=== PATIENT | female | born 1970 | race Caucasian/White ===

== ENCOUNTER 2023-04-10 08:57 | Outpatient (OUT) | payer OTHER, SELFPAY ==
[2023-04-10 09:34] LABS: Basophils Absolute Auto 0.1 10^3/uL (0.0-0.1); Basophils Percent Auto 0.7 % (0.2-2.0); Eosinophils Absolute Auto 0.1 10^3/uL (0.0-0.7); Eosinophils Percent Auto 1.4 % (0.9-7.0); Hematocrit 41.8 % (36.0-48.0); Hemoglobin 13.3 g/dL (12.0-16.0); Immature Granulocytes Abs Auto 0.03 10^3/uL (0.00-0.03); Immature Granulocytes Pct Auto 0.4 % (0.0-0.5); Lymphocytes Absolute Auto 2.3 10^3/uL (1.2-3.8); Lymphocytes Percent Auto 28.9 % (20.5-60.0); Mean Corpuscular HGB Conc 31.8 g/dL (29.9-35.2); Mean Corpuscular Hemoglobin 25.6 pg (26.7-34.0); Mean Corpuscular Volume 80.4 fL (81.0-99.0); Mean Platelet Volume 9.1 fL (9.5-13.5); Monocytes Absolute Auto 0.5 10^3/uL (0.3-0.8); Monocytes Percent Auto 5.8 % (1.7-12.0); Neutrophils Absolute Auto 5.1 10^3/uL (1.4-6.5); Neutrophils Percent Auto 62.8 % (43.0-75.0); Platelet Count 352 10^3/uL (150-450); White Blood Count 8.1 10^3/uL (4.0-11.0)
[2023-04-10 10:02] LABS: Estimated Average Glucose 123 mg/dL; Glycohemoglobin A1C 5.9 % (4.5-6.2)
[2023-04-10 10:24] LABS: Alanine Aminotransferase 32 U/L (14-59); Albumin Globulin Ratio 0.9; Albumin Level 3.7 g/dL (3.4-5.0); Alkaline Phosphatase 109 U/L (46-116); Aspartate Amino Transferase 20 U/L (15-37); BUN Creatinine Ratio 16.7; Bilirubin Total 0.2 mg/dL (0.2-1.0); Calcium 8.8 mg/dL (8.5-10.1); Carbon Dioxide 27.1 mmol/L (21.0-32.0); Chloride 105 mmol/L (98-107); Chol HDL Ratio 5.7; Cholesterol 250 mg/dL (<=200); Estimated GFR (African America >60 (>=60); Estimated GFR (Non-African Ame >60 (>=60); Glucose 98 mg/dL (74-106); HDL Cholesterol 44 mg/dL (40-60); Potassium 4.1 mmol/L (3.5-5.1); Sodium 141 mmol/L (136-145); Thyroid Stimulating Hormone 1.642 uIU/mL (0.358-3.740); Total Protein 7.7 g/dL (6.4-8.2); Triglycerides 218 mg/dL (<=150); VLDL CHOLESTEROL 43.6 mg/dL
== END 2023-04-10 08:58 | disposition home or self-care (01) ==
LOC: LAB 09:08
PROVIDERS: PCP Family Medicine; Visit Provider Obstetrics & Gynecology
DX: R61 Generalized hyperhidrosis (principal); R23.2 Flushing; R63.5 Abnormal weight gain
CPT/HCPCS: 36415; 80053; 80061; 83036; 84443; 85025

== ENCOUNTER 2023-06-23 19:54 | Outpatient (REF) | payer OTHER, SELFPAY ==
[2023-06-30 18:07] LABS: Age Gdln ACOG Testing Note (.); HPV Aptima Negative (Negative); IGP, Aptima HPV, rfx 16/18,45 Note (.)
== END 2023-06-23 19:55 | disposition home or self-care (01) ==
LOC: LAB 19:54
PROVIDERS: PCP Family Medicine; Visit Provider Physician Assistant
DX: Z01.419 Encounter for gynecological examination (general) (routine) without abnormal findings (principal); R30.0 Dysuria
CPT/HCPCS: 87086; 87624; G0145

== ENCOUNTER 2023-09-08 08:51 | Outpatient (OUT) | payer OTHER, SELFPAY ==
--- NOTE | 2023-09-08 08:54 | XR_ITS ---
The [address] [address] Patient Name: AMIE VERMA MRN: [id number] date: 1970 Sex: F Assigned Patient Location: [facility] Current Patient Location: [facility] Accession/Order Number: [id number] Exam Date: 09/08/2023 09:25 Report Date: 09/08/2023 09:56 At the request of: VALDEMAR LEACH Procedure: XR DEXA axial skeleton DEXA Bone Density Study INDICATION: Osteoporosis screening. Evaluate bone mineral density. COMPARISON:No prior DEXA scan available for comparison at the time of this dictation. FINDINGS: The bone density study was assessed by dual-energy x-ray absorptiometry with the Fashinating scanner. The test results are expressed in T-Score, which is used for diagnosis for osteoporosis, and reflects the standard deviations from the mean peak bone mineral density in young adults. Additional information regarding the Z-Score reflects the standard deviations from the mean peak bone mineral density for age- and gender- matched subject. Lumbar Spine (L2-L4): BMD (gm/cm2): 1.135 T-Score: -0.5 Left Hip TOTAL: BMD (gm/cm2): 0.849 T-Score: -1.3 Left Hip NECK: BMD (gm/cm2): 0.785 T-Score: -1.8 Right hip TOTAL: BMD (gm/cm2):0.839 T- score:-1.3 Right hip NECK: BMD (gm/cm2):0.772 T- score: -1.9 XR/XR DEXA axial skeleton IMPRESSION: Bone mineral density WHO Classification: Osteopenia Fracture risk: Moderate REFERENCE: In children, postmenopausal women and males under age 50 not at increased risk for fractures, only Z-Scores, not T-Scores, are used to indicate fracture risk. A Z-Score above -2.0 is defined as within the expected range for age and Z-Score at or less than -2.0 is below the expected range for age. A Z-Score below the expected range for age in a patient with recent fractures and/or chronic corticosteroid treatment is consistent with a diagnosis of osteoporosis. In postmenopausal women and males over 50, comparison of the measured bone mineral density with the average value in young normal subjects (the T-Score) has been found to be useful in assessing fracture risk. Fracture risk approximately doubles for each 1.0 standard deviation (SD) that the individuals hip or spine bone mineral density is below the average value of young normal subjects. The World Health Organization (WHO) has provided the following definitions: 1. Normal: T-Score within one standard deviation of young adult mean value (T-Score at or above -1.0). 2. Osteopenia (low bone mass): T-Score more than one standard deviation below the young adult mean but less than 2.5 standard deviations below the young adult mean (T-Score between -1.0 and -2.5). 3. Osteoporosis: T-Score at or more than 2.5 standard deviations below the young adult mean (T-Score at or less than -2.5). 4. Severe Osteoporosis (established osteoporosis): T-Score more than 2.5 standard deviations below young adult and one or more fragility fracture (T-Score less than -2.5 plus fragility fractures). Electronically authenticated by: WINSTON CASIANO Date: 09/08/2023 09:56
--- NOTE | 2023-09-08 08:55 | MM_ITS ---
Patient Name: AMIE VERMA MR#: [id number] : 1970 Exam Date: 09/08/2023 Ordering Doctor: DR Joaquín Neff . RADIOLOGY REPORT PROCEDURE: MM TOMOSYNTHESIS SCREENING BI COMPARISON: MG MAMM SCREEN GEE W CAD, 05/31/2019. MG MAMM SCREEN 3D GEE CAD, 09/02/2022. INDICATIONS: Screening Calculator Name NCI Breast Cancer Risk Assessment Tool 5 Year Breast Cancer Risk 0.60% Lifetime Breast Cancer Risk 6.00% Personal Breast Cancer No Personal Ovarian Cancer No Treatments None Family Cancers None LOCATION: [facility] BREAST COMPOSITION: Scattered areas fibroglandular density. FINDINGS: DIAGNOSTIC CATEGORY 2--BENIGN FINDING. NO CHANGE FROM COMPARISON. Scattered benign-appearing nodules are present. Scattered benign-appearing calcifications are present. Scattered benign-appearing lymph nodes are present. RIGHT BREAST: No significant suspicious finding. LEFT BREAST: No significant suspicious finding. RECOMMENDATIONS: ROUTINE MAMMOGRAM AND CLINICAL EVALUATION IN 12 MONTHS. PLEASE NOTE: A NORMAL MAMMOGRAM DOES NOT EXCLUDE THE POSSIBILITY OF BREAST CANCER. A CLINICALLY SUSPICIOUS PALPABLE LUMP SHOULD BE BIOPSIED. Dictated by: Laurent Hansen MD on 09/09/2023 at 11:24 Approved by: Laurent Hansen MD on 09/09/2023 at 11:25
== END 2023-09-08 08:52 | disposition home or self-care (01) ==
LOC: MAMMO 08:51
PROVIDERS: PCP Family Medicine; Visit Provider Obstetrics & Gynecology
DX: Z12.31 Encounter for screening mammogram for malignant neoplasm of breast (principal); Z13.820 Encounter for screening for osteoporosis; Z78.0 Asymptomatic menopausal state
CPT/HCPCS: 77063; 77067; 77080

== ENCOUNTER 2023-09-10 18:21 | Emergency (ER) | payer OTHER, SELFPAY ==
[2023-09-10] VITALS (29 sets, daily range): BP systolic 132–173; BP diastolic 76–125; PULSE 71–86; RESP 11–21; TEMP 36.8; O2SAT 96–99; BMI 35.7
--- OUTSIDE RECORDS SUMMARY | 2023-09-10 18:28 | XMS_ITS | CCD ---
Author Name Unknown Address [address] [facility] [address] [place] [id number] Organization [facility] Care Team Providers Care Commercial Lender Name Role Phone JAROCHO, DR TALAVERA Admitting Unavailable HOY, DR TALAVERA Attending Unavailable HOY, DR TALAVERA Consulting Unavailable HOY, DR TALAVERA Primary Care Unavailable HOY, DR TALAVERA Primary Care Unavailable KARASIK, DR MORGAN Admitting Unavailable KARASIK, DR MORGAN Attending Unavailable KARASIK, DR MORGAN Consulting Unavailable ZIEBER, DR PASCUAL Wild Consulting Unavailable HOY, DR TALAVERA Primary Care Unavailable KARASIK, DR MORGAN Admitting Unavailable KARASIK, DR MORGAN Attending Unavailable KARASIK, DR MORGAN Consulting Unavailable HOY, DR TALAVERA Primary Care Unavailable HOY, DR TALAVERA Admitting Unavailable HOY, DR TALAVERA Attending Unavailable HOY, DR TALAVERA Consulting Unavailable Problems Active Problems Problem Classification Problem Date Documented Da te Episodic/Chronic Other screening for suspected conditions (not mental disorders or infectious disease) (8 sources) Encounter for screening mammogram for malignant neoplasm of breast; Translations: [Encounter for screening for malignant neoplasm of cervix] Onset: 06-04-2022 Episodic Unclassified (3 sources) CONTACT W/AND (SUSP) EXPOS COVID-19; Translations: [CONTACT W/AND (SUSP) EXPOS COVID-19] Onset: 11-29-2021 Viral infection (1 source) COVID-19; Translations: [COVID-19] Onset: 09-30-2021 Past or Other Problems Problem Classification Problem Date Documented Date Episodic/Chronic Immunizations and screening for infectious disease (1 source) Encounter for screening for human papillomavirus (HPV); Translations: [ENC SCREENING HUMAN PAPILLOMAVIRUS] Onset: 06-08-2022 Episodic Other upper respiratory infections (1 source) Acute recurrent frontal sinusitis; Translations: [ACUTE RECURRENT FRONTAL SINUSITIS] Onset: 11-29-2021 Episodic Unclassified (1 source) CONTACT W/AND (SUSP) EXPOS COVID-19; Translations: [CONTACT W/AND (SUSP) EXPOS COVID-19] Onset: 11-27-2021 Results Test Name Value Interpretation Reference Range Facil ity MG MAMM SCREEN 3D GEE CADon 09-02-2022 MG MAMM SCREEN 3D GEE CAD Patient: AMIE VERMA Exam Date: 09/02/2022 : 1970 Gender:F Ordering : DR CATHY PAL . Admission #: [id number] Family : Order #: [id number] CLICK HERE TO VIEW EXAM RADIOLOGY REPORT PROCEDURE: MAMMOGRAM SCREENING 3D BILATERAL CAD COMPARISON: MG MAMM SCREEN GEE W CAD, 08/25/2017. MG MAMM GEE SCRN W CAD DIG, 01/30/2015. MG MAMM SCREEN GEE W CAD, 05/31/2019. INDICATIONS: Screening mammography Calculator Name NCI Breast Cancer Risk Assessment Tool 5 Year Breast Cancer Risk 0.60% Lifetime Breast Cancer Risk 6.10% Personal Breast Cancer No Personal Ovarian Cancer No Treatments None Family Cancers None LOCATION: [facility] BREAST COMPOSITION: Scattered areas fibroglandular density. FINDINGS: DIAGNOSTIC CATEGORY 2--BENIGN FINDING: RIGHT BREAST: No significant suspicious finding. Scattered benign-appearing nodules are present. No significant change has occurred. LEFT BREAST: No significant suspicious finding. Scattered benign-appearing nodules are present. Scattered benign-appearing lymph nodes are present. RECOMMENDATIONS: ROUTINE MAMMOGRAM AND CLINICAL EVALUATION IN 12 MONTHS. PLEASE NOTE: A NORMAL MAMMOGRAM DOES NOT EXCLUDE THE POSSIBILITY OF BREAST CANCER. A CLINICALLY SUSPICIOUS PALPABLE LUMP SHOULD BE BIOPSIED. Dictated by: Pascual Hammond M.D. on 09/02/2022 at 15:04 Approved by: Pascual Hammond M.D. on 09/02/2022 at 15:07 Normal [facility] PAP ACOG PANEL 2: 30 to 65on 06-11-2022 . . Normal [facility] Comment on above: Result Comment: Performed at: WB Performed By: #### [id number] #### [facility] [address] [address] [address] Art Gold Age Gdln ACOG Testing 30-65 Normal [facility] Comment on above: Performed By: #### [id number] #### [facility] [address] [address] [address] Art Gold DIAGNOSIS: Comment Normal [facility] Comment on above: Result Comment: NEGATIVE FOR INTRAEPITHE LIAL LESION OR MALIGNANCY. Performed at: WB Performed By: #### [id number] #### [facility] [address] [address] [address] Art Gold HPV Aptima Negative Normal Negative [facility] Comment on above: Result Comment: This nucleic acid amplif ication test detects fourteen high-risk HPV types (16,18,31,33,35,39,45,51,52,56,58,59,66,68) without differentiation. Performed at: =G Performed By: #### [id number] #### [facility] [address] [place] [address] Dr. Art Gold Methodology: Comment Normal [facility] Comment on above: Result Comment: This liquid based ThinPr ep(R) pap test was screened with the use of an image guided system. Performed at: WB Performed By: #### [id number] #### [facility] [address] [place] [address] Dr. Art Gold Note: Comment Normal [facility] Comment on above: Result Comment: The Pap smear is a scree jenna test designed to aid in the detection of premalignant and malignant conditions of the uterine cervix. It is not a diagnostic procedure and should not be used as the sole means of detecting cervical cancer. Both false-positive and false-negative reports do occur. . Performed at: WB Performed By: #### [id number] #### [facility] [address] [place] [address] Dr. Art Gold Performed by: Comment Normal [facility] Comment on above: Result Comment: Bre Hansen Cytotechnol ogyvette (ASCP) Performed at: WB Performed By: #### [id number] #### [facility] [address] [place] [address] Dr. Art Gold Specimen adequacy: Comment Normal [facility] Comment on above: Result Comment: Satisfactory for evaluat ion. Endocervical and/or squamous metaplastic cells (endocervical component) are present. Performed at: WB Performed By: #### [id number] #### [facility] [address] [place] [address] Dr. rAt Gold Covid-19 PCR (CVDTB)on SARS-CoV-2 (COVID-19) RNA TRISTEN+probe Ql (Unsp spec) Not detected Normal NOT DETECTED [facility] Comment on above: Result Comment: This test is not yet elier roved or cleared by the [place] FDA. When there are no FDA-approved or cleared tests available, and other criteria are met, FDA can make tests available under an emergency access mechanism called an Emergency Use Authorization (EUA). The EUA for this test is supported by the [place] of Health and Human Service's (HHS's) declaration that circumstances exist to justify the emergency use of in vitro diagnostics for the detection and/or diagnosis of the virus that causes COVID-19. This EUA will remain in effect (meaning this test can be used) for the duration of the COVID-19 declaration justifying emergency of IVDs, unless it is terminated or revoked by FDA (after which the test may no longer be used). When diagnostic testing is negative, the possibility of a false negative should be considered in the context of a patient's recent exposures and the presence of clinical signs and symptoms consistent with SARS-CoV-2. Performed By: #### C VDTB #### [facility] [address] [place] [address] Dr. Art Gold Covid-19 PCR (CVDTB)on SARS-CoV-2 (COVID-19) RNA TRISTEN+probe Ql (Unsp spec) Detected Critically abnormal NOT DETECTED [facility] Comment on above: Result Comment: This test is not yet elier roved or cleared by the [place] FDA. When there are no FDA-approved or cleared tests available, and other criteria are met, FDA can make tests available under an emergency access mechanism called an Emergency Use Authorization (EUA). The EUA for this test is supported by the [place] of Health and Human Service's (HHS's) declaration that circumstances exist to justify the emergency use of in vitro diagnostics for the detection and/or diagnosis of the virus that causes COVID-19. This EUA will remain in effect (meaning this test can be used) for the duration of the COVID-19 declaration justifying emergency of IVDs, unless it is terminated or revoked by FDA (after which the test may no longer be used). Performed By: #### [facility] #### [facility] [address] [address] [address] Art Gold Encounters Encounter Date Encounter Type Care Provider Facility Start: 09-02-2022 End: 09-03-[address] ILAN AVENDAÑO Facility:[facility] Start: 06-04-2022 End: 06-04-[address] ILAN AVENDAÑO Facility:[facility] Start: 11-27-2021 End: 11-27-[address] ILAN AVENDAÑO Facility:[facility] Start: 09-26-2021 End: 09-26-[address] ILAN AVENDAÑO Facility:[facility] Payers Date Payer Category Payer Unknown [id number] [id number] [id number] 1970 Unknown [id number] [id number] 1970 Unknown [id number] [id number] 1970 Unknown [id number] [id number] [id number] 1957 Unknown [id number] Summary Purpose Family History No Family History Records Found Advance Directives No Advanced Directives Records Found Additional Source Comments INFORMATION SOURCE (unrecogn ized section and content) DATE CREATED AUTHOR 09/13/2022 [facility] FOR RECORDS PERTAINING TO PATIENTS WHO ARE OR HAVE BEEN ENROLLED IN A CHEMICAL DEPENDENCY/SUBSTANCEABUSE PROGRAM, SOME INFORMATION MAY BE OMITTED. This clinical summary was aggregated from multiple sources. Caution should be exercised in using it in the provision of clinical care. This summary normalizes information from multiple sources, and as a consequence, information in this document may materially change the coding, format and clinical context of patient data. In addition, data may be omitted in some cases. CLINICAL DECISIONS SHOULD BE BASED ON THE PRIMARY CLINICAL RECORDS. [email or web address] [facility]. provides no warranty or guarantee of the accuracy or completeness of information in this document.
--- NOTE | 2023-09-10 18:55 | XR_ITS ---
[address] [address] Patient Name: AMIE VERMA MRN: [id number] date: 1970 Sex: F Assigned Patient Location: ER Current Patient Location: ED.MAIN Accession/Order Number: [id number] Exam Date: 09/10/2023 19:18 Report Date: 09/10/2023 20:03 At the request of: FATOU MEEK Procedure: XR chest 1V EXAM: XR chest 1V HISTORY: CP COMPARISON: Chest x-ray 06/25/2018, outside study TECHNIQUE: Single AP radiograph of the chest FINDINGS: No pneumothorax, pleural effusion or consolidation. Normal heart size. No acute osseous abnormality. XR/XR chest 1V IMPRESSION: No acute cardiopulmonary process. Electronically authenticated by: THU AYALA Date: 09/10/2023 20:03
--- NOTE | 2023-09-10 18:55 | ECG_ITS ---
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
[2023-09-10 19:00] LABS: Basophils Absolute Auto 0.1 10^3/uL (0.0-0.1); Basophils Percent Auto 0.4 % (0.2-2.0); Eosinophils Absolute Auto 0.2 10^3/uL (0.0-0.7); Eosinophils Percent Auto 1.4 % (0.9-7.0); Hematocrit 40.5 % (36.0-48.0); Hemoglobin 12.8 g/dL (12.0-16.0); Immature Granulocytes Abs Auto 0.03 10^3/uL (0.00-0.03); Immature Granulocytes Pct Auto 0.3 % (0.0-0.5); Lymphocytes Absolute Auto 3.1 10^3/uL (1.2-3.8); Lymphocytes Percent Auto 26.3 % (20.5-60.0); Mean Corpuscular HGB Conc 31.6 g/dL (29.9-35.2); Mean Corpuscular Volume 82.2 fL (81.0-99.0); Mean Platelet Volume 9.8 fL (9.5-13.5); Monocytes Absolute Auto 0.6 10^3/uL (0.3-0.8); Monocytes Percent Auto 5.5 % (1.7-12.0); Neutrophils Absolute Auto 7.7 10^3/uL (1.4-6.5); Neutrophils Percent Auto 66.1 % (43.0-75.0); Platelet Count 344 10^3/uL (150-450); Red Blood Count 4.93 10^6/uL (4.20-5.40); Red Cell Distribution Width 14.9 % (11.0-15.0); White Blood Count 11.7 10^3/uL (4.0-11.0)
--- NOTE | 2023-09-10 19:05 | ED.CHESTPAI1 ---
Documented by User: Roxane Willams 09/10/23 21:52 HPI - Chest Pain General Chief Complaint: Chest Pain Stated Complaint: CP, LEFT ARM PAIN, HEADACHE Time Seen by Provider: 09/10/23 18:40 Source: patient Mode of arrival: walk-in Limitations: no limitations History of Present Illness HPI narrative: 52 year old female presents to the ED for chest, head, and left arm pain. Onset was 0900 this morning. States she was getting ready for her day at the time. The pain has been constant. States it is a pressure, tightness. She has SOB when walking up stairs. Denies fever, chills, injury, dizziness, weakness. Denies abd pain, N/V/D. Denies cardiac history. Related Data Home Medications Medication Instructions Recorded Confirmed dexlansoprazole 60 mg 60 mg PO DAILY 09/10/23 09/10/23 capsule,biphase delayed release (Dexilant) metformin 500 mg tablet,extended 500 mg PO DAILY 09/10/23 09/10/23 release 24 hr Allergies Allergy/AdvReac Type Severity Reaction Status Date / Time No Known Drug Allergies Allergy Verified 09/10/23 18:32 Review of Systems ROS Constitutional Denies: fever or chills Ears, nose, mouth, and throat Denies: throat pain or neck pain Cardiovascular Reports: chest pain and shortness of breath with exertion; Denies: palpitations, swelling of feet/ankles or lightheadedness Respiratory Denies: cough or wheezing Gastrointestinal Denies: abdominal pain, nausea, vomiting or diarrhea Musculoskeletal Denies: back pain or neck pain Integumentary/Breast Denies: rash Neurological Denies: headache, weakness in extremities or dizziness Exam Constitutional Vital Signs, click to edit/add: Last Vital Signs Temp 98.2 F 09/10/23 18:33 Pulse 77 09/10/23 20:50 Resp 14 09/10/23 20:50 BP 154/88 H 09/10/23 20:45 Pulse Ox 97 09/10/23 20:50 O2 Del Method Room Air 09/10/23 18:33 Common normals: no apparent distress and oriented x3 General appearance: cooperative Orientation/consciousness: Yes awake HENMT Mouth: oral and palatal mucosa normal and lip normal Eye Common normals: conjunctivae normal and no scleral icterus Neck & C-Spine Common normals: supple and no JVD Chest Chest: symmetrical chest wall rise Respiratory Common normals: normal respiratory effort Effort & inspection: able to speak in complete sentences and symmetric chest movement Auscultation: clear to auscultation bilaterally Cardio Common normals: regular rate and regular rhythm Neuro Common normals: oriented x3 Sensorium/orientation: awake and alert Speech: speech normal Course Vital Signs Vital signs: Vital Signs Pulse Oximetry 98 09/10/23 18:27 Temperature 98.2 F 09/10/23 18:33 Pulse Rate 77 09/10/23 20:50 Respiratory Rate 14 09/10/23 20:50 Blood Pressure 154/88 H 09/10/23 20:45 Pulse Oximetry 97 09/10/23 20:50 Oxygen Delivery Method Room Air 09/10/23 18:33 MDM - Chest Pain MDM Narrative Medical decision making narrative: Chest x-ray showed no acute findings. Two troponin levels were drawn and were unremarkable. CBC and CMP were unremarkable. She was given 324 mg of asa here. She preferred to be discharged home. Her heart score was 2. She was encouraged to follow up with her pcp for a recheck, further evaluation and treatment. Return precautions were discussed. Differential Diagnosis Differential diagnosis: Likely stable angina, atypical chest pain, st elevation myocardial infarction, chest pain and other (Anxiety) Medical Records Data Attestation: I reviewed the patient's medical records. Lab Data Attestation: I reviewed the patient's lab results. Labs: Lab Results 09/10/23 09/10/23 Range/Units 18:45 21:16 WBC 11.7 H (4.0-11.0) 10^3/uL RBC 4.93 (4.20-5.40) 10^6/uL Hgb 12.8 (12.0-16.0) g/dL Hct 40.5 (36.0-48.0) % MCV 82.2 (81.0-99.0) fL MCH 26.0 L (26.7-34.0) pg MCHC 31.6 (29.9-35.2) g/dL RDW 14.9 (11.0-15.0) % Plt Count 344 (150-450) 10^3/uL MPV 9.8 (9.5-13.5) fL Neut % (Auto) 66.1 (43.0-75.0) % Lymph % (Auto) 26.3 (20.5-60.0) % [place] % (Auto) 5.5 (1.7-12.0) % Eos % (Auto) 1.4 (0.9-7.0) % Baso % (Auto) 0.4 (0.2-2.0) % Neut # (Auto) 7.7 H (1.4-6.5) 10^3/uL Lymph # (Auto) 3.1 (1.2-3.8) 10^3/uL [place] # (Auto) 0.6 (0.3-0.8) 10^3/uL Eos # (Auto) 0.2 (0.0-0.7) 10^3/uL Baso # (Auto) 0.1 (0.0-0.1) 10^3/uL Abs Immat Gran (auto) 0.03 (0.00-0.03) 10^3/uL Imm/Tot Granulo (auto) 0.3 (0.0-0.5) % Sodium 140 (136-145) mmol/L Potassium 4.4 (3.5-5.1) mmol/L Chloride 105 (98-107) mmol/L Carbon Dioxide 27.7 (21.0-32.0) mmol/L Anion Gap 11.7 BUN 18.0 (7.0-18.0) mg/dL Creatinine 0.89 (0.55-1.02) mg/dL Est GFR ( Amer) >60 (>=60) Est GFR (Non-Af Amer) >60 (>=60) BUN/Creatinine Ratio 20.2 Glucose 79 (74-106) mg/dL Calcium 8.9 (8.5-10.1) mg/dL Total Bilirubin 0.6 (0.2-1.0) mg/dL AST 25 (15-37) U/L ALT 26 (14-59) U/L Alkaline Phosphatase 113 (46-116) U/L Troponin I High Sens 4.7 4.6 (4.0-51.3) pg/mL Total Protein 7.6 (6.4-8.2) g/dL Albumin 3.5 (3.4-5.0) g/dL Globulin 4.1 g/dL Albumin/Globulin Ratio 0.9 Imaging Data Chest x-ray: Attestation: I have reviewed the pertinent imaging results. Radiologist's impression: Procedure: XR chest 1V EXAM: XR chest 1V HISTORY: CP COMPARISON: Chest x-ray 06/25/2018, outside study TECHNIQUE: Single AP radiograph of the chest FINDINGS: No pneumothorax, pleural effusion or consolidation. Normal heart size. No acute osseous abnormality. XR/XR chest 1V IMPRESSION: No acute cardiopulmonary process. Electronically authenticated by: THU AYALA Date: 09/10/2023 20:03 ECG Data Attestation: ?I have reviewed the pertinent ECG results. (EKG was reviewed by the attending physician. It showed sinus rhythm at a rate of 84. No acute ST segment changes. SC interval 154 ms. QTc 403 ms.) Interpretation: Measurements Intervals [place] Rate: 84 P: 53 SC: 154 QRS: 8 QRSD: 78 T: 43 QT: 362 QTc: 403 Interpretive Statements 1100 Sinus rhythm 3113 Cannot rule out anterior myocardial infarction, probably old 9150 abnormal ECG No previous ECG available for comparison Heart Score History: Slightly/Non-Suspicious ECG: Normal Age: >45-<65 years Risk Factors: 1 or 2 Risk Factors Troponin: <Normal Limit Total Heart Score Recommendations & Risks:: 2 Discharge Plan Discharge Chief Complaint: Chest Pain Clinical Impression: Chest pain, Pleurisy Patient Disposition: Home, Self-Care Time of Disposition Decision: 21:50 Condition: Good Mode of Transportation: Private Vehicle Prescriptions / Home Meds: No Action dexlansoprazole [Dexilant] 60 mg capsule,biphase delayed releas 60 mg PO DAILY metformin 500 mg tablet extended release 24 hr 500 mg PO DAILY Instructions: Chest Pain (ED), Pleurisy (ED) Additional Instructions: Return to the ER for new or worsening symptoms. Stand Alone Forms: Portal Instructions Referrals: Adán Fink MD [Primary Care Provider] - 1 week Documented by User: Yohan Mcgraw 09/10/23 22:03 HPI - Chest Pain General Chief Complaint: Chest Pain Stated Complaint: CP, LEFT ARM PAIN, HEADACHE Time Seen by Provider: 09/10/23 18:40 Related Data Home Medications Medication Instructions Recorded Confirmed dexlansoprazole 60 mg 60 mg PO DAILY 09/10/23 09/10/23 capsule,biphase delayed release (Dexilant) metformin 500 mg tablet,extended 500 mg PO DAILY 09/10/23 09/10/23 release 24 hr Allergies Allergy/AdvReac Type Severity Reaction Status Date / Time No Known Drug Allergies Allergy Verified 09/10/23 18:32 Exam Constitutional Vital Signs, click to edit/add: Last Vital Signs Temp 98.2 F 09/10/23 18:33 Pulse 77 09/10/23 20:50 Resp 14 09/10/23 20:50 BP 154/88 H 09/10/23 20:45 Pulse Ox 97 09/10/23 20:50 O2 Del Method Room Air 09/10/23 18:33 Course Vital Signs Vital signs: Vital Signs Pulse Oximetry 98 09/10/23 18:27 Temperature 98.2 F 09/10/23 18:33 Pulse Rate 77 09/10/23 20:50 Respiratory Rate 14 09/10/23 20:50 Blood Pressure 154/88 H 09/10/23 20:45 Pulse Oximetry 97 09/10/23 20:50 Oxygen Delivery Method Room Air 09/10/23 18:33 MDM - Chest Pain MDM Narrative Medical decision making narrative: Chest x-ray showed no acute findings. Two troponin levels were drawn and were unremarkable. CBC and CMP were unremarkable. She was given 324 mg of asa here. She preferred to be discharged home. Her heart score was 2. She was encouraged to follow up with her pcp for a recheck, further evaluation and treatment. Return precautions were discussed. Attending physician note - I saw and evaluated the patient and discussed her symptoms, test results including CXR. Patient's pain is pleuritic. Discussed HEART score and risk for the patient - she had a negative stress about 5 years ago. I recommended out-patient follow up with Dr Fink. ED return if she worsens. - Jesus Manuel, DO Lab Data Labs: Lab Results 09/10/23 09/10/23 Range/Units 18:45 21:16 WBC 11.7 H (4.0-11.0) 10^3/uL RBC 4.93 (4.20-5.40) 10^6/uL Hgb 12.8 (12.0-16.0) g/dL Hct 40.5 (36.0-48.0) % MCV 82.2 (81.0-99.0) fL MCH 26.0 L (26.7-34.0) pg MCHC 31.6 (29.9-35.2) g/dL RDW 14.9 (11.0-15.0) % Plt Count 344 (150-450) 10^3/uL MPV 9.8 (9.5-13.5) fL Neut % (Auto) 66.1 (43.0-75.0) % Lymph % (Auto) 26.3 (20.5-60.0) % [place] % (Auto) 5.5 (1.7-12.0) % Eos % (Auto) 1.4 (0.9-7.0) % Baso % (Auto) 0.4 (0.2-2.0) % Neut # (Auto) 7.7 H (1.4-6.5) 10^3/uL Lymph # (Auto) 3.1 (1.2-3.8) 10^3/uL [place] # (Auto) 0.6 (0.3-0.8) 10^3/uL Eos # (Auto) 0.2 (0.0-0.7) 10^3/uL Baso # (Auto) 0.1 (0.0-0.1) 10^3/uL Abs Immat Gran (auto) 0.03 (0.00-0.03) 10^3/uL Imm/Tot Granulo (auto) 0.3 (0.0-0.5) % Sodium 140 (136-145) mmol/L Potassium 4.4 (3.5-5.1) mmol/L Chloride 105 (98-107) mmol/L Carbon Dioxide 27.7 (21.0-32.0) mmol/L Anion Gap 11.7 BUN 18.0 (7.0-18.0) mg/dL Creatinine 0.89 (0.55-1.02) mg/dL Est GFR ( Amer) >60 (>=60) Est GFR (Non-Af Amer) >60 (>=60) BUN/Creatinine Ratio 20.2 Glucose 79 (74-106) mg/dL Calcium 8.9 (8.5-10.1) mg/dL Total Bilirubin 0.6 (0.2-1.0) mg/dL AST 25 (15-37) U/L ALT 26 (14-59) U/L Alkaline Phosphatase 113 (46-116) U/L Troponin I High Sens 4.7 4.6 (4.0-51.3) pg/mL Total Protein 7.6 (6.4-8.2) g/dL Albumin 3.5 (3.4-5.0) g/dL Globulin 4.1 g/dL Albumin/Globulin Ratio 0.9 Heart Score Total Heart Score Recommendations & Risks:: 2 Discharge Plan Discharge Chief Complaint: Chest Pain Clinical Impression: Chest pain, Pleurisy Patient Disposition: Home, Self-Care Time of Disposition Decision: 21:50 Condition: Good Mode of Transportation: Private Vehicle Prescriptions / Home Meds: No Action dexlansoprazole [Dexilant] 60 mg capsule,biphase delayed releas 60 mg PO DAILY metformin 500 mg tablet extended release 24 hr 500 mg PO DAILY Instructions: Chest Pain (ED), Pleurisy (ED) Additional Instructions: Return to the ER for new or worsening symptoms. Stand Alone Forms: Portal Instructions Referrals: Adán Fink MD [Primary Care Provider] - 1 week
[2023-09-10 19:10] LABS: Alanine Aminotransferase 26 U/L (14-59); Albumin Globulin Ratio 0.9; Albumin Level 3.5 g/dL (3.4-5.0); Alkaline Phosphatase 113 U/L (46-116); Anion Gap 11.7; Aspartate Amino Transferase 25 U/L (15-37); BUN Creatinine Ratio 20.2; Bilirubin Total 0.6 mg/dL (0.2-1.0); Calcium 8.9 mg/dL (8.5-10.1); Carbon Dioxide 27.7 mmol/L (21.0-32.0); Chloride 105 mmol/L (98-107); Estimated GFR (African America >60 (>=60); Estimated GFR (Non-African Ame >60 (>=60); Globulin 4.1 g/dL; Glucose 79 mg/dL (74-106); Potassium 4.4 mmol/L (3.5-5.1); Sodium 140 mmol/L (136-145); Total Protein 7.6 g/dL (6.4-8.2)
[2023-09-10 19:15] LABS: Troponin I High Sensitivity 4.7 pg/mL (4.0-51.3)
[2023-09-10] MEDS: ASPIRIN 81 MG TAB.CHEW 324 MG PO (19:17)
[2023-09-10 21:38] LABS: Troponin I High Sensitivity 4.6 pg/mL (4.0-51.3)
== END 2023-09-10 22:00 | disposition home or self-care (01) ==
PROVIDERS: Nurse Practitioner Family; Emergency Provider Emergency Medicine; PCP Family Medicine
DX: R07.9 Chest pain, unspecified (principal); R09.1 Pleurisy; Z79.84 Long term (current) use of oral hypoglycemic drugs
CPT/HCPCS: 36415; 71045; 80053; 84484; 85025; 93005; 99285

== ENCOUNTER 2023-10-22 11:41 | Outpatient (OUT) | payer OTHER, SELFPAY ==
--- OUTSIDE RECORDS SUMMARY | 2023-10-22 11:46 | XMS_ITS | CCD ---
Author Name Unknown Address [address] [facility] [address] [place] [id number] Organization [facility] Care Team Providers Care Wet Chemistry Analyst Name Role Phone JAROCHO, DR TALAVERA Admitting [...] : DR CATHY PAL . Admission #: [id number] Family : Order #: [id number] CLICK HERE TO VIEW EXAM RADIOLOGY REPORT [...] Treatments None Family Cancers None LOCATION: The [facility] BREAST COMPOSITION: Scattered areas fibroglandular density. [...] Hammond M.D. on 09/02/2022 at 15:07 Normal [facility] PAP ACOG PANEL 2: 30 to 65on 06-11-2022 . . Normal The [facility] Comment on above: Result Comment: Performed at: WB Performed By: #### [id number] #### [facility] [address] [address] [address] Art Gold Age Gdln ACOG Testing 30-65 Normal [facility] Comment on above: Performed By: #### [id number] #### [facility] [address] [address] [address] Art Gold DIAGNOSIS: Comment Normal [facility] Comment on above: Result Comment: NEGATIVE FOR INTRAEPITHE LIAL LESION OR MALIGNANCY. Performed at: WB Performed By: #### [id number] #### [facility] [address] [address] [address] Art Gold HPV Aptima Negative Normal Negative [facility] Comment on above: Result Comment: This nucleic acid amplif ication test detects fourteen high-risk HPV types (16,18,31,33,35,39,45,51,52,56,58,59,66,68) without differentiation. Performed at: =G Performed By: #### [id number] #### [facility] [address] [place] [address] Dr. Art Gold Methodology: Comment Normal [facility] Comment on above: Result Comment: This liquid based ThinPr ep(R) pap test was screened with the use of an image guided system. Performed at: WB Performed By: #### [id number] #### [facility] [address] [place] [address] Dr. Art Gold Note: Comment Normal [facility] Comment on above: Result Comment: The Pap smear is a scree jenna test designed to aid in the detection of premalignant and malignant conditions of the uterine cervix. It is not a diagnostic procedure and should not be used as the sole means of detecting cervical cancer. Both false-positive and false-negative reports do occur. . Performed at: WB Performed By: #### [id number] #### [facility] [address] [place] [address] Dr. Art Gold Performed by: Comment Normal [facility] Comment on above: Result Comment: Bre Hansen Cytotechnol ogyvette (ASCP) Performed at: WB Performed By: #### [id number] #### [facility] [address] [place] [address] Dr. Art Gold Specimen adequacy: Comment Normal [facility] Comment on above: Result Comment: Satisfactory for evaluat ion. Endocervical and/or squamous metaplastic cells (endocervical component) are present. Performed at: WB Performed By: #### [id number] #### [facility] [address] [place] [address] Dr. Art Gold Covid-19 PCR (CVDTB)on SARS-CoV-2 (COVID-19) RNA TRISTEN+probe Ql (Unsp spec) Not detected Normal NOT DETECTED [facility] Comment on above: Result Comment: This test is not yet elier roved or cleared by the [place] FDA. When there are no FDA-approved or cleared tests available, and other criteria are met, FDA can make tests available under an emergency access mechanism called an Emergency Use Authorization (EUA). The EUA for this test is supported by the [place] of Health and Human Service's (HHS's) declaration [...] SARS-CoV-2. Performed By: #### C VDTB #### [facility] [address] [place] [address] Dr. Art Gold Covid-19 PCR (CVDTB)on SARS-CoV-2 (COVID-19) RNA TRISTEN+probe Ql (Unsp spec) Detected Critically abnormal NOT DETECTED [facility] Comment on above: Result Comment: This test is not yet elier roved or cleared by the [place] FDA. When there are no FDA-approved or cleared tests available, and other criteria are met, FDA can make tests available under an emergency access mechanism called an Emergency Use Authorization (EUA). The EUA for this test is supported by the [place] of Health and Human Service's (HHS's) declaration [...] longer be used). Performed By: #### C [facility] #### [facility] [address] [address] [address] Art Gold Encounters Encounter Date Encounter Type Care Provider Facility Start: 09-02-2022 End: 09-03-[address] ILAN AVENDAÑO Facility:[facility] Start: 06-04-2022 End: 06-04-[address] ILAN AVENDAÑO Facility:[facility] Start: 11-27-2021 End: 11-27-[address] ILAN AVENDAÑO Facility:[facility] Start: 09-26-2021 End: 09-26-[address] ILAN AVENDAÑO Facility:[facility] Payers Date Payer Category Payer Unknown [id number] [id number] [id number] 1970 Unknown [id number] 2.16.84 [id number] 1970 Unknown [id number] 2.16.84 [id number] 1970 Unknown [id number] 2.16.84 [id number] 1959 Unknown [id number] Summary Purpose Family History No Family History Records Found Advance Directives No Advanced Directives Records Found Additional Source Comments INFORMATION SOURCE (unrecogn ized section and content) DATE CREATED AUTHOR 09/13/2022 The [facility] FOR RECORDS PERTAINING TO PATIENTS WHO ARE [...] BE BASED ON THE PRIMARY CLINICAL RECORDS. [employer] [facility]. provides no warranty or guarantee of the accuracy or completeness of information in this document.
--- NOTE | 2023-10-22 11:51 | XR_ITS ---
The [address] [address] Patient Name: AMIE VERMA MRN: [id number] date: 1970 Sex: F Assigned Patient Location: LAB Current Patient Location: LAB Accession/Order Number: [id number] Exam Date: 10/22/2023 11:52 Report Date: 10/22/2023 12:06 At the request of: ILAN AVENDAÑO Procedure: XR elbow LT min 3V PROCEDURE: XR elbow LT min 3V HISTORY: Elbow Pain M25.522 ; pain since falling on elbow 2 weeks ago COMPARISON: None. FINDINGS: BONES:No fracture, acute abnormality, or significant arthropathy. SOFT TISSUES:No visible soft tissue swelling. EFFUSION:None visible. OTHER: Negative. XR/XR elbow LT min 3V IMPRESSION: 1. No acute bone abnormality. Electronically authenticated by: WESTON TALAVERA Date: 10/22/2023 12:06
== END 2023-10-22 11:42 | disposition home or self-care (01) ==
PROVIDERS: PCP Family Medicine; Visit Provider Family Medicine
DX: M25.522 Pain in left elbow (principal)
CPT/HCPCS: 73080

== ENCOUNTER 2024-01-27 09:25 | Outpatient (OUT) | payer OTHER, SELFPAY ==
[2024-01-27 10:43] LABS: Basophils Percent Auto 0.5 % (0.2-2.0); Eosinophils Absolute Auto 0.2 10^3/uL (0.0-0.7); Eosinophils Percent Auto 1.9 % (0.9-7.0); Hematocrit 39.9 % (36.0-48.0); Hemoglobin 12.5 g/dL (12.0-16.0); Immature Granulocytes Abs Auto 0.02 10^3/uL (0.00-0.03); Immature Granulocytes Pct Auto 0.2 % (0.0-0.5); Lymphocytes Absolute Auto 2.3 10^3/uL (1.2-3.8); Lymphocytes Percent Auto 28.7 % (20.5-60.0); Mean Corpuscular HGB Conc 31.3 g/dL (29.9-35.2); Mean Corpuscular Hemoglobin 25.7 pg (26.7-34.0); Mean Corpuscular Volume 81.9 fL (81.0-99.0); Mean Platelet Volume 9.6 fL (9.5-13.5); Monocytes Absolute Auto 0.5 10^3/uL (0.3-0.8); Monocytes Percent Auto 6.3 % (1.7-12.0); Neutrophils Percent Auto 62.4 % (43.0-75.0); Platelet Count 360 10^3/uL (150-450); Red Blood Count 4.87 10^6/uL (4.20-5.40); Red Cell Distribution Width 14.4 % (11.0-15.0)
[2024-01-27 10:52] LABS: Alanine Aminotransferase 27 U/L (14-59); Albumin Globulin Ratio 0.9; Albumin Level 3.3 g/dL (3.4-5.0); Alkaline Phosphatase 106 U/L (46-116); Anion Gap 10.2; Aspartate Amino Transferase 19 U/L (15-37); BUN Creatinine Ratio 12.6; Bilirubin Total 0.3 mg/dL (0.2-1.0); Calcium 8.8 mg/dL (8.5-10.1); Carbon Dioxide 29.1 mmol/L (21.0-32.0); Chloride 107 mmol/L (98-107); Chol HDL Ratio 6.1; Cholesterol 269 mg/dL (<=200); Estimated GFR (African America >60 (>=60); Estimated GFR (Non-African Ame >60 (>=60); Free T3 2.61 pg/mL (2.18-3.98); Globulin 3.7 g/dL; Glucose 87 mg/dL (74-106); HDL Cholesterol 44 mg/dL (40-60); Potassium 4.3 mmol/L (3.5-5.1); Sodium 142 mmol/L (136-145); Thyroid Stimulating Hormone 1.273 uIU/mL (0.358-3.740); Triglycerides 222 mg/dL (<=150); VLDL CHOLESTEROL 44.4 mg/dL
[2024-01-27 11:00] LABS: Estimated Average Glucose 123 mg/dL; Glycohemoglobin A1C 5.9 % (4.5-6.2)
[2024-01-28 12:10] LABS: Insulin 23.2 uIU/mL (2.6-24.9)
== END 2024-01-27 09:26 | disposition home or self-care (01) ==
LOC: LAB 09:27
PROVIDERS: PCP Family Medicine; Visit Provider Family Medicine
DX: Z00.00 Encounter for general adult medical examination without abnormal findings (principal)
CPT/HCPCS: 36415; 80053; 80061; 83036; 83525; 84436; 84443; 84481; 85025

== ENCOUNTER 2024-11-02 07:58 | Outpatient (OUT) | payer OTHER, SELFPAY ==
--- OUTSIDE RECORDS SUMMARY | 2024-11-02 08:11 | XMS_ITS | CCD ---
Author Organization [facility] Care Team Providers Care Sand Operator Name Role Phone JAROCHO, DR TALAVERA Admitting Unavailable REGINAY, DR TALAVERA Attending Unavailable HOY, DR TALAVERA Consulting Unavailable HOY, DR TALAVERA Primary Care Unavailable HOY, DR TALAVERA Primary Care Unavailable KARASIK, DR MORGAN Admitting Unavailable KARASIK, DR MORGAN Attending Unavailable KARASIK, DR MORGAN Consulting Unavailable ZIEBER, DR PASCUAL Wild Consulting Unavailable HOY, DR TALAVERA Primary Care Unavailable KARASIK, DR MORGAN Admitting Unavailable KARASIK, DR MORGAN Attending Unavailable KARASIK, DR MORGAN Consulting Unavailable REGINAY, DR TALAVERA Primary Care Unavailable HOY, DR [...] : DR CATHY PAL . Admission #: [id number] Family : Order #: [id number] CLICK HERE TO VIEW EXAM RADIOLOGY REPORT [...] Treatments None Family Cancers None LOCATION: The [facility] BREAST COMPOSITION: Scattered areas fibroglandular density. FINDINGS: [...] Pascual Hammond M.D. on 09/02/2022 at 15:07 [facility] PAP ACOG PANEL 2: 30 to 65on 06-11-2022 . . Normal The [facility] Comment on above: Result Comment: Performed at: WB Performed By: #### [id number] #### [facility] [address] [address] [address] Art Gold Age Gdln ACOG Testing 30-65 Normal [facility] Comment on above: Performed By: #### [id number] #### [facility] [address] [address] [address] Art Gold DIAGNOSIS: Comment Normal [facility] Comment on above: Result Comment: NEGATIVE FOR INTRAEPITHE LIAL LESION OR MALIGNANCY. Performed at: WB Performed By: #### [id number] #### [facility] [address] [place] [address] Dr. Art Gold HPV Aptima Negative Normal Negative [facility] Comment on above: Result Comment: This nucleic acid amplif ication test detects fourteen high-risk HPV types (16,18,31,33,35,39,45,51,52,56,58,59,66,68) without differentiation. Performed at: =G Performed By: #### [id number] #### [facility] [address] [place] [address] Dr. Art Gold Methodology: Comment Normal [facility] Comment on above: Result Comment: This liquid based ThinPr ep(R) pap test was screened with the use of an image guided system. Performed at: WB Performed By: #### [id number] #### [facility] [address] [place] [address] Dr. Art Gold Note: Comment Normal [facility] Comment on above: Result Comment: The Pap smear is a scree jenna test designed to aid in the detection of premalignant and malignant conditions of the uterine cervix. It is not a diagnostic procedure and should not be used as the sole means of detecting cervical cancer. Both false-positive and false-negative reports do occur. . Performed at: WB Performed By: #### [id number] #### [facility] [address] [place] [address] Dr. Art Gold Performed by: Comment Normal [facility] Comment on above: Result Comment: Bre Hansen, Cytotechnol ogist (ASCP) Performed at: WB Performed By: #### [id number] #### [facility] [address] [place] [address] Dr. Art Gold Specimen adequacy: Comment Normal [facility] Comment on above: Result Comment: Satisfactory for evaluat ion. Endocervical and/or squamous metaplastic cells (endocervical component) are present. Performed at: WB Performed By: #### [id number] #### [facility] [address] [place] [address] [address] [address] Art Gold Covid-19 PCR (CVDTB)on SARS-CoV-2 (COVID-19) RNA TRISTEN+probe Ql (Unsp spec) Not detected Normal NOT DETECTED [facility] Comment on above: Result Comment: This test is not yet elier roved or cleared by the [place] FDA. When there are no FDA-approved or cleared tests available, and other criteria are met, FDA can make tests available under an emergency access mechanism called an Emergency Use Authorization (EUA). The EUA for this test is supported by the [place] of Health and Human Service's (HHS's) declaration [...] consistent with SARS-CoV-2. Performed By: #### C [facility] #### [facility] [address] [place] [address] Dr. Art Gold Covid-19 PCR (CVDTB)on SARS-CoV-2 (COVID-19) RNA TRISTEN+probe Ql (Unsp spec) Detected Critically abnormal NOT DETECTED The [facility] Comment on above: Result Comment: This test is not yet elier roved or cleared by the [place] FDA. When there are no FDA-approved or cleared tests available, and other criteria are met, FDA can make tests available under an emergency access mechanism called an Emergency Use Authorization (EUA). The EUA for this test is supported by the [place] [employer] of Health and Human Service's (HHS's) declaration [...] longer be used). Performed By: #### C [facility] #### [facility] [address] [place], [place] [address] Dr. Art Gold Encounters Encounter Date Encounter Type Care Provider Facility Start: 09-02-2022 End: 09-03-[address] ILAN AVENDAÑO Facility:[facility] Start: 06-04-2022 End: 06-04-[address] ILAN AVENDAÑO Facility:[facility] Start: 11-27-2021 End: 11-27-[address] ILAN AVENDAÑO Facility:[facility] Start: 09-26-2021 End: 09-26-[address] ILAN AVENDAÑO Facility:[facility] Payers Date Payer Category Payer Unknown [id number] 2.16.84 [id number] 1970 Unknown [id number] 2.16.84 [id number] 1970 Unknown [id number] 2.16.84 [id number] 1970 Unknown [id number] 2.16.84 [id number] 1959 Unknown [id number] Summary Purpose Family History No Family History Records Found Advance Directives No Advanced Directives Records Found Additional Source Comments INFORMATION SOURCE (unrecogn ized section and content) DATE CREATED AUTHOR 09/13/2022 [facility] FOR RECORDS PERTAINING TO PATIENTS WHO ARE [...] BE BASED ON THE PRIMARY CLINICAL RECORDS. [facility] [employer] [facility]. provides no warranty or guarantee of the accuracy or completeness of information in this document.
--- NOTE | 2024-11-02 08:31 | MM_ITS ---
Patient Name: AMIE VERMA MR#: [id number] : 1970 Exam Date: 11/02/2024 Ordering Doctor: DR Joaquín Neff . RADIOLOGY REPORT PROCEDURE: MM TOMOSYNTHESIS SCREENING BI COMPARISON: MM TOMOSYNTHESIS SCREENING BI, 09/08/2023. MG MAMM SCREEN 3D GEE CAD, 09/02/2022. MG MAMM SCREEN GEE W CAD, 05/31/2019. MG MAMM GEE SCRN W CAD DIG, 01/30/2015. INDICATIONS: Screening Calculator Name NCI Breast Cancer Risk Assessment Tool 5 Year Breast Cancer Risk 0.50% Lifetime Breast Cancer Risk 4.00% Personal Breast Cancer No Personal Ovarian Cancer No Treatments None Family Cancers None LOCATION: [facility] BREAST COMPOSITION: There are scattered areas of fibroglandular density. FINDINGS: DIAGNOSTIC CATEGORY 1--NEGATIVE. RIGHT BREAST: No significant suspicious finding. No significant change has occurred. LEFT BREAST: No significant suspicious finding. No significant change has occurred. RECOMMENDATIONS: ROUTINE MAMMOGRAM AND CLINICAL EVALUATION IN 12 MONTHS. PLEASE NOTE: A NORMAL MAMMOGRAM DOES NOT EXCLUDE THE POSSIBILITY OF BREAST CANCER. A CLINICALLY SUSPICIOUS PALPABLE LUMP SHOULD BE BIOPSIED. Dictated by: Pascual Hammond M.D. on 11/04/2024 at 10:50 Approved by: Pascual Hammond M.D. on 11/04/2024 at 10:53
== END 2024-11-02 07:59 | disposition home or self-care (01) ==
LOC: MAMMO 07:58
PROVIDERS: PCP Family Medicine; Visit Provider Obstetrics & Gynecology
DX: Z12.31 Encounter for screening mammogram for malignant neoplasm of breast (principal); Z01.419 Encounter for gynecological examination (general) (routine) without abnormal findings; L72.0 Epidermal cyst
CPT/HCPCS: 77063; 77067; 88175; 88304

== ENCOUNTER 2024-11-02 19:27 | Outpatient (REF) | payer OTHER, SELFPAY ==
--- OUTSIDE RECORDS SUMMARY | 2024-11-02 19:30 | XMS_ITS | CCD ---
Author Organization [facility] Care Team Providers Care Candy Wrapping Machine Operator Name Role Phone JAROCHO, DR TALAVERA [...] : DR CATHY PAL . Admission #: [id number] Family : Order #: [id number] CLICK HERE TO VIEW EXAM RADIOLOGY REPORT [...] Treatments None Family Cancers None LOCATION: [facility] BREAST COMPOSITION: Scattered areas fibroglandular density. [...] Pascual Hammond M.D. on 09/02/2022 at 15:07 [facility] PAP ACOG PANEL 2: 30 to 65on 06-11-2022 . . Normal [facility] Comment on above: Result Comment: Performed at: WB Performed By: #### [id number] #### [facility] [address] [address] [address] Art Gold Age Gdln ACOG Testing 30-65 Normal [facility] Comment on above: Performed By: #### [id number] #### [facility] [address] [address] [address] Art Gold DIAGNOSIS: Comment Normal [facility] Comment on above: Result Comment: NEGATIVE FOR INTRAEPITHE LIAL LESION OR MALIGNANCY. Performed at: WB Performed By: #### [id number] #### [facility] [address] [place] [address] Dr. Art Gold HPV Aptima Negative Normal Negative [facility] Comment on above: Result Comment: This nucleic acid amplif ication test detects fourteen high-risk HPV types (16,18,31,33,35,39,45,51,52,56,58,59,66,68) without differentiation. Performed at: =G Performed By: #### [id number] #### [facility] [address] [place] [address] Dr. Art Gold Methodology: Comment Normal [facility] Comment on above: Result Comment: This liquid based ThinPr ep(R) pap test was screened with the use of an image guided system. Performed at: WB Performed By: #### [id number] #### [facility] [address] [place] [address] Dr. Art Gold Note: Comment Normal [facility] Comment on above: Result Comment: The Pap smear is a scree jenna test designed to aid in the detection of premalignant and malignant conditions of the uterine cervix. It is not a diagnostic procedure and should not be used as the sole means of detecting cervical cancer. Both false-positive and false-negative reports do occur. . Performed at: WB Performed By: #### [id number] #### [facility] [address] [place] [address] Dr. Art Gold Performed by: Comment Normal [facility] Comment on above: Result Comment: Bre Hansen, Cytotechnol ogist (ASCP) Performed at: WB Performed By: #### [id number] #### [facility] [address] [place] [address] Dr. Art Gold Specimen adequacy: Comment Normal [facility] Comment on above: Result Comment: Satisfactory for evaluat ion. Endocervical and/or squamous metaplastic cells (endocervical component) are present. Performed at: WB Performed By: #### [id number] #### [facility] [address] [place] [address] [address] Art Gold Covid-19 PCR (CVDTB)on SARS-CoV-2 (COVID-19) RNA TRISTEN+probe Ql (Unsp spec) Not detected Normal NOT DETECTED [facility] Comment on above: Result Comment: This test is not yet elier roved or cleared by the [place] FDA. When there are no FDA-approved or cleared tests available, and other criteria are met, FDA can make tests available under an emergency access mechanism called an Emergency Use Authorization (EUA). The EUA for this test is supported by the Fixture Designer of Health and Human Service's (HHS's) declaration [...] consistent with SARS-CoV-2. Performed By: #### [facility] #### [facility] [address] [place] [address] Dr. Art Gold Covid-19 PCR (CVDTB)on SARS-CoV-2 (COVID-19) RNA TRISTEN+probe Ql (Unsp spec) Detected Critically abnormal NOT DETECTED [facility] Comment on above: Result Comment: This test is not yet elier roved or cleared by the [place] FDA. When there are no FDA-approved or cleared tests available, and other criteria are met, FDA can make tests available under an emergency access mechanism called an Emergency Use Authorization (EUA). The EUA for this test is supported by the Fixture Designer of Health and Human Service's (HHS's) declaration [...] longer be used). Performed By: #### C [facility] #### [facility] [address], [place] [address] Dr. Art Gold Encounters Encounter Date Encounter Type Care Provider Facility Start: 09-02-2022 End: 09-03-[address] ILAN AVENDAÑO Facility:[facility] Start: 06-04-2022 End: 06-04-[address] ILAN AVENDAÑO Facility:[facility] Start: 11-27-2021 End: 11-27-[address] ILAN AVENDAÑO Facility:[facility] Start: 09-26-2021 End: 09-26-[address] ILAN AVENDAÑO Facility:[facility] Payers Date Payer Category Payer Unknown [id number] 1970 Unknown [id number] 1970 Unknown [id number] 1970 Unknown [id number] 1957 Unknown [id number] Summary Purpose Family History No Family History Records Found Advance Directives No Advanced Directives Records Found Additional Source Comments INFORMATION SOURCE (unrecogn ized section and content) DATE CREATED AUTHOR 09/13/2022 [facility] FOR RECORDS PERTAINING TO PATIENTS [...] BE BASED ON THE PRIMARY CLINICAL RECORDS. [facility]. provides no warranty or guarantee of the accuracy or completeness of information in this document.
[2024-11-08 13:08] LABS: Age Gdln ACOG Testing Note (.); HPV Aptima Negative (Negative); IGP, Aptima HPV, rfx 16/18,45 Note (.)
== END 2024-11-02 19:28 | disposition home or self-care (01) ==
LOC: LAB 19:27
PROVIDERS: PCP Family Medicine; Visit Provider Physician Assistant
DX: Z01.419 Encounter for gynecological examination (general) (routine) without abnormal findings (principal); L72.0 Epidermal cyst
CPT/HCPCS: 88175; 88304

== ENCOUNTER 2025-04-07 14:00 | Outpatient (OUT) | payer OTHER, SELFPAY ==
--- OUTSIDE RECORDS SUMMARY | 2025-02-07 07:15 | XMS_ITS ---
Author Organization The [facility] [place] Address [address] [place] [address] Care Team Providers Care Speedboat Driver Name Role Phone Sukhdeep Fink Primary Care Provider Allergies No Known Allergies REASON FOR VISIT Right ear pain non resolving Medications Medication SIG (Take, Route, Frequency, Duration) Notes Start Date End Date Status ZyrTEC Allergy 10 MG 1 tablet Orally Onc e a day for 30 days PRN 02/10/2023 Active Lysine Active Calcium Magnesium Zinc 333-133-5 MG 1 tablet with meals Orally Three times a day 10/27/2024 Active Dexilant 60 MG 1 capsule Orally Onc e a day for 30 days 04/03/2023 Active predniSONE 20 MG 3 tablets Orally Onc e a day for 5 days 02/07/2025 Active Aspirin Adult Low Dose 81 MG 1 tablet Orally Once a day A ctive Social History Tobacco Use: Social History Observation Description Date Details (start date - stop date) Former Smoker 09/21/1991 - 09/21/2010 Tobacco Use/Smoking Question Answer Notes Patient is a former smoker When did you start smoking? 09/21/1991 When did you stop smoking? 09/21/2010 How long has it been since y ou last smoked? > 10 years Additional Findings: Tobacco Non-User Ex-heavy c igarette smoker (20-30/day) Vital Signs Weight 184.4 lbs 02/07/2025 Height 63.75 in 02/07/2025 Blood pressure systolic 164 mm Hg 02/08/20 25 Blood pressure diastolic 84 mm Hg 025 BMI 31.9 kg/m2 02/07/2025 Encounters Encounter Location Date Provider Diagnosis [facility] [address] [place] [address] 02/07/2025 Sukhdeep Fink Acute otitis media, unspecified otitis media type H66.90 and Otalgia, unspecified laterality H92.09 Assessments Encounter Date Diagnosis (ICD Code) Assessment Notes Treatment Notes Treatment Clinical Notes Section Notes 02/07/2025 Acute otitis media, unspecified otitis media type (ICD-10 - H66.90) You have been prescribed antibiotics for otitis media. Antibiotics may bother your stomach, so try taking them with a light meal (unless instructed otherwise by your pharmacist). It is important to take them until they are finished. You can use lybk-hoi-zhbrljj acetaminophen or ibuprofen if needed for pain. You have been prescribed antibiotics. You should be extra vigilant about hand washing or using hand screedman gel. You should follow up with your Primary Care Physician or return to clinic if not improving in the next 3-5 days. 02/07/2025 Otalgia, unspecified laterality (ICD-10 - H92.09) Plan Of Treatment Medication Medication Name Sig Start Date Stop Date Notes predniSONE 20 MG 3 tablets Orally Once a day for 5 days Treatment Notes Assessment Notes Acute otitis media, unspecif ied otitis media type You have been prescribed antibiotics for otitis media. Antibiotics may bother your stomach, so try taking them with a light meal (unless instructed otherwise by your pharmacist). It is important to take them until they are finished. You can use dqnu-igg-hholnnr acetaminophen or ibuprofen if needed for pain. You have been prescribed antibiotics. You should be extra vigilant about hand washing or using hand screedman gel. You should follow up with your Primary Care Physician or return to clinic if not improving in the next 3-5 days. Next Appt Details Follow Up: 3-5 days, if no i mprovement, Reason: Progress Notes * Natali VERMA MDOB:1970 (54 yo F)Acc No.[id number]:02/07/2025 Progress Note Patient: Natali STEWART Provider: Lisandra Fink ([facility])MD :1970 A ge:54 Y S ex:Female Date:02/07/2025 Address:[place], [place] Check In:11:18 AM ESTCheck O ut:11:58 AM EST Subjective: * Chief Complaints: * R ight ear pain non resolving * HPI: G eneral: More jjust hearing - hard in R ear - left feel sperfect. O titis Media: The patient complains of s ymptoms of an ear infection.� The symptoms have been present for 1 -2 days. The symptoms are m oderate. Symptomatic treatment has included O TC medication. Associated symptoms include p ain in one or both ears, fever. * ROS: E NT: Comments S ee HPI for details. C ardiovascular: Edema d enies. P alpitations d enies. � R espiratory: Chest pain d enies. C ough d enies. � G astrointestinal: Abdominal pain d enies. D ecreased appetite d enies. S kin: Rash d enies. * Active Problem List G43.909 Migraine, unspecifie d, not intractable, without status migrainosus Modified On:12/24/2022/U Status:confirmed R07.9 Chest pain Modified On:10/09/2023/U Status:confirmed J01.90 Acute sinusitis Modified On:10/22/2023/U Status:confirmed E78.5 Hyperlipidemia Modified On:01/28/2024/U Status:confirmed I10 Hypertension Modified On:10/27/2024/U Status:confirmed E66.9 Class 1 obesity Modified On:11/30/2024/U Status:confirmed H60.90 Otitis externa Modified On:01/27/2025/U Status:confirmed * Medical History: * Surgical History: C ESAREAN DELIVERY * Hospitalization/Major Diagno stic Procedure: D enies Past Hospitalization * Family History: F ather: alive, Heart Attack- 50 years old, diagnosed with Unspecified heart disease. M other: alive, Heart Attack/Stroke- 55 years, Dementia, Depression, diagnosed with Unspecified heart disease. B rother(s): alive. S ister(s): alive, Depression. S on(s): alive. D aimeeer(s): alive, depression. P aternal Grandfather: , diagnosed with Diabetes mellitus without mention of complication, type II or unspecified type, not stated as uncontrolled. P angi Grandmother: , diagnosed with Diabetes mellitus without mention of complication, type II or unspecified type, not stated as uncontrolled. 1 brother(s) , 3 sister(s) - healthy. 1 son(s) , 1 daughter(s) - healthy. . * Social History: T obacco Use: T obacco Use/Smoking P atkristie is a f ormer smoker W hen did you start smoking? 0 09/21/1991 W hen did you stop smoking? 0 09/21/2010 H ow long has it been since you last smoked?�> 10 years A dditional Findings: Tobacco Non-User E x-heavy cigarette smoker (20-30/day) * Medications: T akingAspirin Adult Low Dose(Aspirin) 81 MG Tablet Delayed Release 1 tablet Orally Once a day Calcium Magnesium Zinc 333-133-5 MG Tablet 1 tablet with meals Orally Three times a day Dexilant(Dexlansoprazole) 60 MG Capsule Delayed Release 1 capsule Orally Once a day Lysine ZyrTEC Allergy(Cetirizine HCl) 10 MG Tablet 1 tablet Orally Once a day , Notes to Pharmacist: PRNTaking Aspirin Adult Low Dose(Aspirin) 81 MG Tablet Delayed Release 1 tablet Orally Once a day Taking Calcium Magnesium Zinc 333-133-5 MG Tablet 1 tablet with meals Orally Three times a day Taking Dexilant(Dexlansoprazole) 60 MG Capsule Delayed Release 1 capsule Orally Once a day Taking Lysine Taking ZyrTEC Allergy(Cetirizine HCl) 10 MG Tablet 1 tablet Orally Once a day , Notes to Pharmacist: PRNDiscontinuedCiprofloxacin HCl 500 MG Tablet 1 tablet Orally every 12 hrs Hfijqipo-Wygfqrcqm-RL 3.5-94196-8 Suspension 4 drops into affected ear Otic Three times a day Medication List reviewed and reconciled with the patientDiscontinued Ciprofloxacin HCl 500 MG Tablet 1 tablet Orally every 12 hrs Discontinued Kljfseqv-Metwcxwbj-PQ 3.5-67772-5 Suspension 4 drops into affected ear Otic Three times a day Medication List reviewed and reconciled with the patient * Allergies: N .K.D.A.no[Allergies Verified] Objective: * Vitals: W t:184.4lbs, Ht: 63.75 in, BP:164/84mm Hg, BMI:31.9Index, Ht-cm: 161.93 cm, Wt- k.64 kg. * Examination: G eneral Examination: GENERAL APPEARANCE: in no acute distress, well developed, well nourished. EYES: pupils equal, round, reactive to light and accomodations, sclera non-icteric. ENT: n ormocephalic, autraumatic. EARS: R SUSAN. ORAL CAVITY: mucosa moist. THROAT: no erythema, no exudate. LUNGS: clear to auscultation bilaterally. CARDIO: regular rate and rhythm, S1, S2 normal, no murmurs. ABDOMEN: soft, nontender, nondistended, bowel sounds present, normal. SKIN: warm and dry, no suspicious lesions. EXTREMITIES: no clubbing, cyanosis, or edema. NEUROLOGIC: nonfocal, motor strength normal upper and lower extremities, sensory exam intact. NECK/THYROID: neck supple, full range of motion, no cervical lymphadenopathy. Assessment: * Assessment: 1. A cute otitis media, unspecified otitis media type - H66.90 (Primary) 2 .�Otalgia, unspecified laterality - H92.09 Plan: * Treatment: * Procedure Codes: * Preventive Medicine: Screenings/Counseling: B MD ACTION PLAN Above Normal BMI Follow-up D ietary management education, guidance, and counseling * Follow Up: 3 -5 days, if no improvement * * Sign off status: Completed Visit Status: C HK (Check Out) true * Provider: Lisandra Fink (TTC)MD Date: 0 02/07/2025 Generated for Mati xiong/Benita/eTransmitting on: 0 04/07/2025 02:06 PM EDT History and Physical Notes * HPI (History of Present Illness) Category Sub-Category Detail Notes Category Not es General More jjust hearing - hard in R ear - left feel sperfect Otitis Media The patient complain s of symptoms of an ear infection The symptoms have been present for 1-2 d ays The symptoms are moderate Symptomatic treatment has included OTC m edication Associated symptoms include pain in one or both ears, fever Examination Category Sub-Category Detail Notes Category Not es General Examination GENERAL APPEARANCE: in no ac [place] distress, well developed, well nourished EYES: pupils equal, round, reactive to light and accomodations, sclera non-icteric EARS: R SUSAN THROAT: no erythema, no exud ate CARDIO: regular rate and rhy thm, S1, S2 normal, no murmurs LUNGS: clear to auscultatio n bilaterally ABDOMEN: soft, nontender, non distended, bowel sounds present, normal NEUROLOGIC: nonfocal, motor stre ngth normal upper and lower extremities, sensory exam intact SKIN: warm and dry, no mayi picious lesions EXTREMITIES: no clubbing, cyanosi s, or edema ORAL CAVITY: mucosa moist ENT: normocephalic, autra umatic NECK/THYROID: neck supple, full ra nge of motion, no cervical lymphadenopathy
--- OUTSIDE RECORDS SUMMARY | 2025-03-03 06:20 | XMS_ITS ---
Author Organization [facility] [place] Address [address] [place] [address] Care Team Providers Care Spanisher Name Role Phone Sukhdeep Fink Primary Care Provider REASON FOR VISIT rf dexilant Medications Medication SIG (Take, Route, Fr equency, Duration) Notes Start Date End Date Status Dexilant 60 MG 1 capsule Orally Onc e a day for 30 days 04/03/2023 Active Encounters Encounter Location Date Provider Diagnosis [facility] [address] [place] [address] 03/03/2025 Sukhdeep Adilsonval Plan Of Treatment Medication Medication Name Sig Start Date Stop Date Notes Dexilant 60 MG 1 capsule Orally Once a day for 30 days Progress Notes * Natali VERMA MDOB:1970 (54 yo F)Acc No.[id number]:03/03/2025 Patient: Natali STEWART :1970 A ge:54 Y S ex:Female Address:[address], [place], [address] * Refills Refill Dexilant Capsule Delayed Release, 60 MG, Orally, 30, 1 capsule, Once a day, 30 days, Refills=11 * true * Date: Generated for Printi ng/Faxing/eTransmitting on: 0 04/07/2025 02:06 PM EDT
--- OUTSIDE RECORDS SUMMARY | 2025-04-07 09:15 | XMS_ITS ---
Author Organization [facility] in [place] Address [address] [place] [address] Care Team Providers Care Ethylene Compressor Operator Name Role Phone Sukhdeep Fink Primary Care Provider REASON FOR VISIT toe pain, shooting pains in her left middle toes, 1 month ago she accidently hit her toes on the couch Medications Medication SIG (Take, Route, Frequency, Duration) Notes Start Date End Date Status Calcium Magnesium Zinc 333-133-5 MG 1 tablet with meals Orally Three times a day 10/27/2024 Active Aspirin Adult Low Dose 81 MG 1 tablet Orally Once a day A ctive ZyrTEC Allergy 10 MG 1 tablet Orally Onc e a day for 30 days PRN 02/10/2023 Active Dexilant 60 MG 1 capsule Orally Onc e a day for 30 days 04/03/2023 Active Lysine Active Social History Tobacco Use: Social History Observation [...] Tobacco Non-User Ex-heavy c igarette smoker (20-30/day) AUDIT-C (Standard) Question Answer Notes Did you have a drink containing alcohol in the p ast year? No Points 0 Interpretation Negative Vital Signs Weight 188.6 lbs 04/07/2025 Height 63.75 in 04/07/2025 Blood pressure systolic 150 mm Hg 04/07/20 25 Blood pressure diastolic 88 mm Hg 025 BMI 32.62 kg/m2 04/07/2025 Encounters Encounter Location Date Provider Diagnosis [facility] [address] [place] [address] 04/07/2025 Sukhdeep Fink Foot pain, left M79.672 Assessments Encounter Date Diagnosis (ICD Code) Assessment Notes Treatment Notes Treatment Clinical Notes Section Notes 04/07/2025 Foot pain, left (ICD-10 - M79.672) Plan Of Treatment Pending Test Test Name Order Date XR FOOT LT MIN 3 VIEWS 04/07/2025 Progress Notes * Natali VERMA MDOB:1970 (54 yo F)Acc No.[id number]:04/07/2025 UNLOCKED PROGRESS NOTE Progress Note Patient: Natali STEWART Provider: Lisandra Fink ([facility])MD :1970 A ge:54 Y S ex:Female Date:04/07/2025 Address:[address] [place] [phone] Check In:01:14 PM ESTCheck O ut:01:50 PM EST Subjective: * Chief Complaints: * 1 . Toe pain. 2. Shooting pains in her left middle toes, 1 month ago she accidently hit her toes on the couch. * HPI: G eneral: Left foot with pain - 2-4th toes. * Medical History: D e Quervain's tenosynovitis, GERD (gastroesophageal reflux disease), Hot flashes, Hypertensive retinopathy, Insomnia, Migraine, Seasonal allergic rhinitis, Anxiety. * Surgical History: C ESAREAN DELIVERY . * Family History: F ather: alive, Heart Attack- 50 years old, diagnosed with Unspecified heart disease. M other: alive, Heart Attack/Stroke- 55 years, Dementia, Depression, diagnosed with Unspecified heart disease. B rother(s): alive. S ister(s): alive, Depression. S on(s): alive. D cliff(s): alive, depression. P aternal Grandfather: , diagnosed with Diabetes mellitus without mention of complication, type II or unspecified type, not stated as uncontrolled. P aternal Grandmother: , diagnosed with Diabetes mellitus without mention of complication, type II or unspecified type, not stated as uncontrolled. 1 brother(s) , 3 sister(s) - healthy. 1 son(s) , 1 daughter(s) - healthy. . * Social History: T obacco Use: T obacco Use/Smoking P atient is a f ormer smoker W hen did you start smoking? 0 09/21/1991 W hen did you stop smoking? 0 09/21/2010 H ow long has it been since you last smoked?�> 10 years A dditional Findings: Tobacco Non-User E x-heavy cigarette smoker (20-30/day) D rug/Alcohol: A MARIFER-C (Standard) D id you have a drink containing alcohol in the past year? N o P oints 0 I nterpretation N egative * Medications: T aking Aspirin Adult Low Dose(Aspirin) 81 MG Tablet Delayed Release 1 tablet Orally Once a day , Taking Calcium Magnesium Zinc 333-133-5 MG Tablet 1 tablet with meals Orally Three times a day , Taking Dexilant(Dexlansoprazole) 60 MG Capsule Delayed Release 1 capsule Orally Once a day , Taking Lysine , Taking ZyrTEC Allergy(Cetirizine HCl) 10 MG Tablet 1 tablet Orally Once a day , Notes to Pharmacist: PRN, Medication List reviewed and reconciled with the patient Objective: * Vitals: W t:188.6lbs, Ht: 63.75 in, BP:150/88mm Hg, BMI:32.62Index, Ht-cm: 161.93 cm, Wt- k.55 kg. * Examination: A bdomen Exam:: L eft foot with distal pain on prox palpation. Assessment: * Assessment: 1. F oot pain, left - M79.672 (Primary) Plan: * Treatment: * Preventive Medicine: Screenings/Counseling: B [place] ACTION PLAN Above Normal BMI Follow-up D ietary management education, guidance, and counseling * * Electronic signature of Sukhdeep Fink MD, [id number] on 04/07/2025 at 02:06 PM EDT Sign off status: Pending Visit Status: Barbie AHUMADA (Check Out) * Provider: Lisandra Fink (TTC)MD Date: 04/07/2025 Generated for Mati xiong/Benita/Solomonitting on: 04/07/2025 02:06 PM EDT History and Physical Notes * HPI (History of Present Illness) Category Sub-Category Detail Notes Category Not es General Left foot with pain - 2-4th toes Examination Category Sub-Category Detail Notes Category Not es Abdomen Exam: Left foot with distal pain on prox palpation
--- OUTSIDE RECORDS SUMMARY | 2025-04-07 14:06 | XMS_ITS | Clinical Summary ---
Author Organization [facility] Address [address] [place] [address] Care Team Providers Care Slip Cover Sewer Name Role Phone Adán Fink MD Primary Care Provider [phone] Allergies No known active allergies Medications Dexilant [address] capsule Take 1 capsule by mouth in the morning. Active Active Problems Problem Noted Date Diagnosed Date Skin tags, multiple acquired 04/29/2023 Family History Medical History Relation Name Comments Diabetes Father Heart disease Father Hypertension Father Diabetes Mother Heart disease Mother Hypertension Mother Relation Name Status Comments Father Alive Mother Alive Social History Tobacco Use Types Packs/Day Years Used Date Smoking Tobacco: Every Day Cigarettes Tobacco Cessation:Ready to Q uit: Not Asked; Counseling Given: Not Answered Comments:Patient smokes 5 or less cigarettes/day Thinking about quitting. Alcohol Use Standard Drinks/Week Comments Yes 0 (1 standard drink = 0.6 oz pure alcohol) Alcohol: 1 or 2 drinks on typical day/monthly or less. Caffeine: 1-2 cups/day Comments No Sex and Gender Information Value Date Recorded Sex Assigned at Not on file Legal Sex Female 7:36 PM EDT Gender Identity Not on file Sexual Orientation Not on file Last Filed Vital Signs Vital Sign Reading Time Taken Comments Blood Pressure 110/68 11/16/2024 1:12 PM EST Pulse - - Temperature - - Respiratory Rate - - Oxygen Saturation - - Inhaled Oxygen Concentration - - Weight 84.3 kg (185 lb 12.8 oz) 11/16/2024 1:12 PM EST Height 162.6 cm (5' 4 ) 04/02/2023 10:5 5 AM EDT Body Mass Index 31.89 04/02/2023 10:55 AM EDT Plan of Treatment Upcoming Encounters Date Type Department Care Team (Late st Contact Info) Description 11/08/2025 9:00 AM EST Office Visit [facility] [address] [facility] [place] [address] Joseline Ross PA [address] [place] [address] Health Maintenance Due Date Last Done Comments CT Colonography 1972 Colonoscopy 1972 Colorectal Cancer Screening 1970 FIT-DNA 1972 FIT 1972 FOBT 1970 Sigmoidoscopy 1972 Influenza Vaccine (#1) 2025 07/09/2017 Mammogram 11/04/2025 11/04/2024, 09/09/2023, 08/21 Cervical Cancer Screening 11/02/2029 HPV/Cotest 11/02/2029 Pap Smear 11/02/2029 11/02/2024, 06/04/2022 Procedures Procedure Name Priority Date/Time Associated Diagnosis Comments MM TOMOSYNTHESIS SCREENING BI 11/04/2024 10:53 AM EST PAP SMEAR Routine 11/02/2024 12:00 AM EST from Last 3 Months or Most Recently Relevant to Health Maintenance Results * MM TOMOSYNTHESIS SCREENING BI (11/04/2024 10:53 AM EST) Anatomical Region Laterality Modality Other 11/04/2024 10:5 3 AM EST Narrative 11/04/2024 10:54 AM EST The [address] [address] Mammography Report Signed Patient: NATALI VERMA MR#: [id number] : 1970 Acct:[id number] Age/Sex: 54 / F ADM Date: 11/02/24 Loc: MAMMO Attending Dr: Joaquín Neff D.O. Ordering Physician: Joaquín Neff D.O. Results: Date of Service: 11/02/24 Follow Up: Procedure(s): MM tomosynthesis screening BI Accession Number(s): [id number] cc: Joaquín Neff D.O.; Adán Fink M.D. Patient Name: NATALI VERMA MR#: [id number] : 1970 Exam Date: 11/02/2024 Ordering Doctor: DR Joaquín Neff . RADIOLOGY REPORT PROCEDURE: MM TOMOSYNTHESIS SCREENING BI COMPARISON: MM TOMOSYNTHESIS SCREENING BI, 09/08/2023. MG MAMM SCREEN 3D GEE CAD, 09/02/2022. MG MAMM SCREEN GEE W CAD, 05/31/2019. MG MAMM GEE SCRN W CAD DIG, 01/30/2015. INDICATIONS: Screening Calculator Name NCI Breast Cancer Risk Assessment Tool 5 Year Breast Cancer Risk 0.50% Lifetime Breast Cancer Risk 4.00% Personal Breast Cancer No Personal Ovarian Cancer No Treatments None Family Cancers None LOCATION: The [facility] BREAST COMPOSITION: There are scattered areas of fibroglandular density. FINDINGS: DIAGNOSTIC CATEGORY 1--NEGATIVE. RIGHT BREAST: No significant suspicious finding. No significant change has occurred. LEFT BREAST: No significant suspicious finding. No significant change has occurred. RECOMMENDATIONS: ROUTINE MAMMOGRAM AND CLINICAL EVALUATION IN 12 MONTHS. PLEASE NOTE: A NORMAL MAMMOGRAM DOES NOT EXCLUDE THE POSSIBILITY OF BREAST CANCER. A CLINICALLY SUSPICIOUS PALPABLE LUMP SHOULD BE BIOPSIED. Dictated by: Pascual Hammond M.D. on 11/04/2024 at 10:50 Approved by: Pascual Hammond M.D. on 11/04/2024 at 10:53 Dictated By: Pascual Hammond M.D. Signed By: 11/04/24 1054 DD/ 1053 TD/TT: Security Intelligence Analyst: Procedure Note Radiology, Radiologist, MD - 11/04/2024 [place] [address] Mammography Report Signed Patient: NATALI VERMA MMR#: [id number] : 1970Acct:[id number] Age/Sex: 54 / FADM Date: 11/02/24 Loc: MAMMO Attending Dr: Joaquín Aishwarya D.O. Ordering Physician: Joaquín Neff D.O.Results: Date of Service: 11/02/24Follow Up: Procedure(s): MM tomosynthesis screening BI Accession Number(s): [id number] cc: Joaquín Neff D.O.; Adán Fink M.D. Patient Name: NATALI VERMA MR#: [id number] : 1970 Exam Date: 11/02/2024 Ordering Doctor: DR Joaquín Neff . RADIOLOGY REPORT PROCEDURE: MM TOMOSYNTHESIS SCREENING BI COMPARISON: MM TOMOSYNTHESIS SCREENING BI, 09/08/2023. MG MAMM [id number] GEE CAD, 09/02/2022. MG MAMM SCREEN GEE W CAD, 05/31/2019. MG MAMM BILSCRN W CAD DIG, 01/30/2015. INDICATIONS: Screening Calculator Name NCI Breast Cancer Risk Assessment Tool 5 Year Breast Cancer Risk 0.50% Lifetime Breast Cancer Risk 4.00% Personal Breast Cancer No Personal Ovarian Cancer No Treatments None Family Cancers None LOCATION: The [facility] BREAST COMPOSITION: There are scattered areas of fibroglandulardensity. FINDINGS: DIAGNOSTIC CATEGORY 1--NEGATIVE. RIGHT BREAST: No significant suspicious finding. No significant changehas occurred. LEFT BREAST: No significant suspicious finding. No significant changehas occurred. RECOMMENDATIONS: ROUTINE MAMMOGRAM AND CLINICAL EVALUATION IN 12 MONTHS. PLEASE NOTE: A NORMAL MAMMOGRAM DOES NOT EXCLUDE THE POSSIBILITY OFBREAST CANCER. A CLINICALLY SUSPICIOUS PALPABLE LUMP SHOULD BE BIOPSIED. Dictated by: Pascual Hammond M.D. on 11/04/2024 at 10:50 Approved by: Pascual Hammond M.D. on 11/04/2024 at 10:53 Dictated By: Pascual Hammond M.D. Signed By:11/04/24 1054 DD/ 1053 TD/TT: Security Intelligence Analyst: us Joaquín Neff DO [facility] Final Result * Pap Smear (11/02/2024 12:00 AM EST) Swab Cervical swab / Unknown [facility] CYTOLOGY ORDERABLES Final Re sult EXTERNAL LAB from Last 3 Months or Most Recently Relevant to Health Maintenance Insurance [employer] Care Teams Slip Cover Sewer Relationship Specialty Start Date End Date Adán Fink MD PCP - General 04/01/23
--- OUTSIDE RECORDS SUMMARY | 2025-04-07 14:06 | XMS_ITS | Encounter Summary ---
Author Organization [facility] Address [address] [place] [address] Care Team Providers Care Aeronautical Engineering Professor Name Role Phone Adán Fink MD Primary Care Provider [phone] Encounter Details Date Type Department Care Team (Late Contact Info) Description 09/08/2023 Clinisync Result Encounter [facility] External Department Unsolicited Valdemar Neff DO [address] [facility] [place] [address] Social History Tobacco Use Types Packs/Day Years Used Date Smoking Tobacco: Every Day Cigarettes Comments:Patient smokes 5 or less cigarettes/day Thinking about quitting. Alcohol Use Standard Drinks/Week Comments Yes 0 (1 standard drink = 0.6 oz pure alcohol) Alcohol: 1 or 2 drinks on typical day/monthly or less. Caffeine: 1-2 cups/day Comments Unknown Sex and Gender Information Value Date Recorded Sex Assigned at Not on file Legal Sex Female 7:36 PM EDT Gender Identity Not on file Sexual Orientation Not on file documented as of this encounter Plan of Treatment Upcoming Encounters Date Type Department Care Team (Late st Contact Info) Description 11/08/2025 9:00 AM EST Office Visit [facility] [address] [place] [phone] Joseline Ross PA [address] [facility] [place] [address] documented as of this encounter Procedures Procedure Name Priority Date/Time Associated Diagnosis Comments XR DEXA AXIAL SKELETON 09/08/2023 9:56 AM EST documented in this encounter Results * XR DEXA AXIAL SKELETON (09/08/2023 9:56 AM EST) Anatomical Region Laterality Modality Other 09/08/2023 9:56 AM EST Narrative 09/08/2023 9:59 [place] [address] XRay Report Signed Patient: NATALI VERMA MR#: [id number] : 1970 Acct:[id number] Age/Sex: 52 / F ADM Date: 09/08/23 Loc: MAMMO Attending Dr: Valdemar Neff D.O. Ordering Physician: Valdemar Neff D.O. Date of Service: 09/08/23 Procedure(s): XR DEXA axial skeleton Accession Number(s): [id number] cc: Valdemar Neff D.O.; Adán Fink M.D. The [place] [address] Patient Name: NATALI VERMA MRN: [id number] date: 1970 Sex: F Assigned Patient Location: [facility] Current Patient Location: [facility] Accession/Order Number: [id number] Exam Date: 09/08/2023 09:25 Report Date: 09/08/2023 09:56 At the request of: VALDEMAR NEFF Procedure: XR DEXA axial skeleton DEXA Bone Density Study INDICATION: Osteoporosis screening. Evaluate bone mineral density. COMPARISON:No prior DEXA scan available for comparison at the time of this dictation. FINDINGS: The bone density study was assessed by dual-energy x-ray absorptiometry with the Red Rover scanner. The test results are expressed in T-Score, which is used for diagnosis for osteoporosis, and reflects the standard deviations from the mean peak bone mineral density in young adults. Additional information regarding the Z-Score reflects the standard deviations from the mean peak bone mineral density for age- and gender- matched subject. Lumbar Spine (L2-L4): BMD (gm/cm2): 1.135 T-Score: -0.5 Left Hip TOTAL: BMD (gm/cm2): 0.849 T-Score: -1.3 Left Hip NECK: BMD (gm/cm2): 0.785 T-Score: -1.8 Right hip TOTAL: BMD (gm/cm2):0.839 T- score:-1.3 Right hip NECK: BMD (gm/cm2):0.772 T- score: -1.9 XR/XR DEXA axial skeleton IMPRESSION: Bone mineral density WHO Classification: Osteopenia Fracture risk: Moderate REFERENCE: In children, postmenopausal women and males under age 50 not at increased risk for fractures, only Z-Scores, not T-Scores, are used to indicate fracture risk. A Z-Score above -2.0 is defined as within the expected range for age and Z-Score at or less than -2.0 is below the expected range for age. A Z-Score below the expected range for age in a patient with recent fractures and/or chronic corticosteroid treatment is consistent with a diagnosis of osteoporosis. In postmenopausal women and males over 50, comparison of the measured bone mineral density with the average value in young normal subjects (the T-Score) has been found to be useful in assessing fracture risk. Fracture risk approximately doubles for each 1.0 standard deviation (SD) that the individuals hip or spine bone mineral density is below the average value of young normal subjects. The World Health Organization (WHO) has provided the following definitions: 1. Normal: T-Score within one standard deviation of young adult mean value (T-Score at or above -1.0). 2. Osteopenia (low bone mass): T-Score more than one standard deviation below the young adult mean but less than 2.5 standard deviations below the young adult mean (T-Score between -1.0 and -2.5). 3. Osteoporosis: T-Score at or more than 2.5 standard deviations below the young adult mean (T-Score at or less than -2.5). 4. Severe Osteoporosis (established osteoporosis): T-Score more than 2.5 standard deviations below young adult and one or more fragility fracture (T-Score less than -2.5 plus fragility fractures). Electronically authenticated by: WINSTON CASIANO Date: 09/08/2023 09:56 Dictated By: Winston Casiano M.D. Signed By: 09/08/2359 DD/ TD/TT: Timber Robber: Procedure Note Radiology, Radiologist, - 09/08/2023 The [place] [id number] XRay Report Signed Patient: NATALI VERMA MMR#: [id number] : 1970Acct:[id number] Age/Sex: 52 / FADM Date: 09/08/23 Loc: MAMMO Attending Dr: Valdemar Neff D.O. Ordering Physician: Valdemar eNff D.O. Date of Service: 09/08/23 Procedure(s): XR DEXA axial skeleton Accession Number(s): [id number] cc: Valdemar Neff D.O.; Adán Fink M.D. The [place] [id number] Patient Name: NATALI VERMA MRN: [id number] date: 1970 Sex: F Assigned Patient Location: [facility] Current Patient Location: [facility] Accession/Order Number: [id number] Exam Date: 09/08/2023 09:25 Report Date: 09/08/2023 09:56 At the request of: VALDEMAR NEFF Procedure: XR DEXA axial skeleton DEXA Bone Density Study INDICATION: Osteoporosis screening. Evaluate bone mineral density. COMPARISON:No prior DEXA scan available for comparison at the time of this dictation. FINDINGS: The bone density study was assessed by dual-energy x-ray absorptiometry with the Red Rover scanner. The test results are expressed in T-Score, which is used for diagnosis for osteoporosis, and reflects the standard deviations from the mean peak bone mineral density in young adults. Additional information regarding theZ-Score reflects the standard deviations from the mean peak bone mineral densityfor age- and gender- matched subject. Lumbar Spine (L2-L4): BMD (gm/cm2): 1.135 T-Score: -0.5 Left Hip TOTAL: BMD (gm/cm2): 0.849 T-Score: -1.3 Left Hip NECK: BMD (gm/cm2): 0.785 T-Score: -1.8 Right hip TOTAL: BMD (gm/cm2):0.839 T- score:-1.3 Right hip NECK: BMD (gm/cm2):0.772 T- score: -1.9 XR/XR DEXA axial skeleton IMPRESSION: Bone mineral density WHO Classification: Osteopenia Fracture risk:Moderate REFERENCE: In children, postmenopausal women and males under age 50 not at increasedrisk for fractures, only Z-Scores, not T-Scores, are used to indicate fracture risk. A Z-Score above -2.0 is defined as within the expected range for age and Z-Score at or less than -2.0 is below the expected range for age. [place]-Score below the expected range for age in a patient with recent fractures and/or chronic corticosteroid treatment is consistent with a diagnosis of osteoporosis. In postmenopausal women and males over 50, comparison of the measured bone mineral density with the average value in young normal subjects (theT-Score) has been found to be useful in assessing fracture risk. Fracture risk approximately doubles for each 1.0 standard deviation (SD) that the individuals hip or spine bone mineral density is below the average value of youngnormal subjects. The World Health Organization (WHO) has provided the following definitions: 1. Normal: T-Score within one standard deviation of young adult mean value (T-Score at or above -1.0). 2. Osteopenia (low bone mass): T-Score more than one standard deviationbelow the young adult mean but less than 2.5 standard deviations below the young adult mean (T-Score between -1.0 and -2.5). 3. Osteoporosis: T-Score at or more than 2.5 standard deviations below the young adult mean (T-Score at or less than -2.5). 4. Severe Osteoporosis (established osteoporosis): T-Score more than 2.5 standard deviations below young adult and one or more fragility fracture (T-Score less than -2.5 plus fragility fractures). Electronically authenticated by: WINSTON CASIANO Date: 09/08/2023 09:56 Dictated By: Winston Casiano M.D. Signed By:09/08/2359 DD/ TD/TT: Timber Robber: us Valdemar Neff DO [facility] Final Result documented in this encounter Visit Diagnoses Not on filedocumented in this encounter Care Teams Aeronautical Engineering Professor Relationship Specialty Start Date End Date Adán Fink MD PCP - General 04/01/23 documented as of this encounter
--- OUTSIDE RECORDS SUMMARY | 2025-04-07 14:06 | XMS_ITS | Encounter Summary ---
Author Organization [facility] Address [address] [place] [address] Care Team Providers Care Plumbing Mechanic Name Role Phone Adán Fink MD Primary Care Provider [phone] Encounter Details Date Type Department Care Team (Late Contact Info) Description 11/02/2024 Abstract [facility] OB [address] [place], [place] [address] [address] Joaquín Neff, DO [address] [place] [address] Dr [place], [place] [address] Social History Tobacco Use Types Packs/Day Years [...] 11/08/2025 9:00 AM EST Office Visit [facility] [address] [facility] [place] [phone] Joseline Ross PA [address] [place] [address] [place], [place] [id number] documented as of this encounter Visit Diagnoses Not on filedocumented in this encounter Care Teams Plumbing Mechanic Relationship Specialty Start Date End Date Adán Fink MD PCP - General 04/01/23 documented as of this encounter
--- OUTSIDE RECORDS SUMMARY | 2025-04-07 14:06 | XMS_ITS | Encounter Summary ---
Author Organization [facility] Address [address] [place] [address] Care Team Providers Care Sales Merchandise Associate Name Role Phone Adán Fink MD Primary Care Provider [phone] Encounter Details Date Type Department Care Team (Late Contact Info) Description 11/17/2024 Orders Only [facility] OB [address] [place] [address] [place] [phone] Aleida Ferreira MA [address] [place] [address] [place] [address] Social History Tobacco Use Types Packs/Day Years [...] [facility] OB [address] [place], [place] [address] [address] Joseline Ross PA [address] [place] [address] [place], [place] [id number] documented as of this encounter Procedures Procedure Name Priority Date/Time Associated Diagnosis Comments PAP SMEAR Routine 11/02/2024 12:00 AM EST documented in this encounter Results * Pap Smear (11/02/2024 12:00 AM EST) Swab Cervical swab / Unknown [facility] CYTOLOGY ORDERABLES Final Re sult EXTERNAL LAB documented in this encounter Visit Diagnoses Not on filedocumented in this encounter Care Teams Sales Merchandise Associate Relationship Specialty Start Date End Date Adán Fink MD PCP - General 04/01/23 documented as of this encounter
--- OUTSIDE RECORDS SUMMARY | 2025-04-07 14:06 | XMS_ITS | Patient Health Record ---
Author Organization [facility] [place] Address [address] [place] [address] Care Team Providers Care Coach Cleaner Name Role Phone Sukhdeep Fink Primary Care Provider Inessa Sanderson Unavailable [phone] Allergies No Known Allergies Results Component Value Reference Range Notes IGP,Aptima HPV,Age Gdln Reviewed date:11/08/2024 08:45:35 PM Interpretation: Performing Lab: Notes/Report: BRUSH-SPATULA CERVIX ENDOCERVIX [facility] , Age Gdln ACOG Testing Note . TESTS RESULT FLAG UNITS REF RANGE LAB Clinician Provided Cytology Information Source.............Cervi x;Endocervix No. of containers..01 ThinPrep Vial Age Algo ACOG [place]... 30-65 01 FLAG LEGEND: L-Low Normal,H-High Normal,LL-Alert Low,HH-Alert High <-Panic Low,>-Panic High,A-Abnormal,AA-Criti jose Abnormal Performed at: 01 =G [facility] [place] [address] [facility], [place] [address] Bee Michelle MD, IGP, Aptima HPV, rfx 16/18,45 Note . TESTS RESULT FLAG UNITS REF RANGE LAB DIAGNOSIS: 02 NEGATIVE FOR INTRAEPITHELIAL LESION OR MALIGNANCY. Specimen adequacy: 02 Satisfactory for evaluation. Endocervical and/or squamous metaplastic cells (endocervical component) are present. Performed by: 02 Jeannie Monroy, Materials Director (ASCP) . 02 Note: Note 02 The Pap smear is a screening test designed to aid in the detection of premalignant and malignant conditions of the uterine cervix. It is not a diagnostic procedure and should not be used as the sole means of detecting cervical cancer. Both false-positive and false-negative reports do occur. Test Methodology: Note 02 This liquid based ThinPrep(R) pap test was screened with the use of an image guided system. HPV Genotype Reflex Note 02 Criteria not met, HPV Genotype not performed. FLAG LEGEND: L-Low Normal,H-High Normal,LL-Alert Low,HH-Alert High <-Panic Low,>-Panic High,A-Abnormal,AA-Criti jose Abnormal Performed at: 02 WB [facility] [place] [address] [facility], [place] [address] Bee Michelle MD, HPV Aptima Negative Negative This nucleic acid amplification test detects fourteen high- risk HPV types (16,18,31,33,35,39,45,51 ,52,56,58,59,66,68) without differentiation. Performed at: = - [facility] [address] [id number] Design Director: Bee Michelle MD, Phone: [phone] Performed at: - [facility] [id number] Design Director: Bee Michelle MD, Phone: [phone] Performing Lab: see note - [facility] LB MM tomosynthesis screening B I Reviewed date:11/05/2024 02:19:22 PM Interpretation: Performing Lab: Notes/Report: Source Facility: [place] [address] Mammography Report Signed Patient: NATALI VERMA MR#: [id number] : 1970 Acct:[id number] Age/Sex: 54 / F ADM Date: 11/02/24 Loc: MAMMO Attending Dr: Joaquín Neff D.O. Ordering Physician: Joaquín Neff D.O. Results: Date of Service: 11/02/24 Follow Up: Procedure(s): MM tomosynthesis screening BI Accession Number(s): [id number] cc: Joaquín Neff D.O.; Adán Fink M.D. Patient Name: NATALI VERMA MR#: [id number] : 1970 Exam Date: 11/02/2024 Ordering Doctor: [...] Treatments None Family Cancers None LOCATION: [facility] BREAST COMPOSITION: There are scattered areas of [...] Signed By: 11/04/24 1054 DD/ 1053 TD/TT: Extrusion Technician: [place] [address] Mammography Report Signed Patient: NATALI VERMA MR#: [id number] : 1970 Acct:[id number] Age/Sex: 54 / F ADM Date: 11/02/24 Loc: MAMMO Attending Dr: Joaquín Neff D.O. Ordering Physician: Joaquín Neff D.O. Results: Date of Service: 11/02/24 Follow Up: Procedure(s): MM tomosynthesis screening BI Accession Number(s): [id number] cc: Joaquín Neff D.O. ; Adán Fink M.D. Patient Name: NATALI VERMA MR#: [id number] : 1970 Exam Date: 11/02/2024 Ordering Doctor: [...] Year Breast Cancer Risk 0.50% Lifetime Breast Canc er Risk 4.00% Personal Breast Canc er No Personal Ovarian Cancer No Treatments None Family Cancers None LOCATION: [facility] BREAST COMPOSITION: There are scattered areas of fibroglandular density. FINDINGS: DIAGNOSTIC CATEGORY 1--NEGATIVE. RIGHT BREAST: No significant suspicious finding. No significant change has occurred. LEFT BREAST: No significant suspicious finding. No significant change has occurred. RECOMMENDATIONS: ROUTINE MAMMOGRAM AN D CLINICAL EVALUATION IN 12 MONTHS. PLEASE NOTE: A TANA L MAMMOGRAM DOES NOT EXCLUDE THE POSSIBILITY OF BREAST CANCER. A CLINICALLY SUSPICIOUS PALPABLE LUMP SHOULD BE BIOPSIED. Dictated by: Pascual Hammond M.D. on 11/04/2024 at 10:50 Approved by: Pascual Hammond M.D. on 11/04/2024 at 10:53 Dictated By: Pascual Hammond M.D. Signed By: 11/04/24 1054 DD/ 1053 TD/TT: Extrusion Technician: Reason For Referral No Information Medications Medication SIG (Take, Route, Frequency, Duration) [...] for 30 days 04/03/2023 Active Lysine Active Immunizations Vaccine Route Administration Date Status Comme nts Hep B, Adult, 3 Dose Unknown 07/23/2001 Administered Hep B, Adult, 3 Dose Unknown 08/27/2001 Administered Hep B, Adult, 3 Dose Unknown 01/28/2002 Administered Tdap Unknown 09/06/2020 Administered Social History Tobacco Use: Social History Observation [...] Tobacco Non-User Ex-heavy c igarette smoker (20-30/day) Alcohol Screen (Audit-C) Question Answer Notes Did you have a drink containing alcohol in the p ast year? No Points 0 Interpretation Negative AUDIT-C (Standard) Question Answer Notes Did you have a drink containing alcohol in the p ast year? No Points 0 Interpretation Negative Problems Problem Type SNOMED Code ICD Code Onset Dates Problem Status W/U Status Risk Notes Problem Migraine without aura, not refractory (disorder) (880400833) Migraine, unspecified, not intractable, without status migrainosus (G43.909) Active confirmed Problem Chest pain (96738294) Chest pain (R07.9) Active confirmed Problem Hyperlipidemia (85107104) Hyperlipidemia (E78.5) Active confirmed Problem Hypertension (28026786) Hypertension (I10) Active confirmed Problem Acute sinusitis (57960800) Acute sinusitis (J01.90) Active confirmed Problem Otitis externa (5942631) Otitis externa (H60.90) Active confirmed Problem Obese class I (finding) (076870627619876) Class 1 obesity (E66.9) Active confirmed Vital Signs Blood pressure diastolic 88 mm Hg 04/07/2025 Height 63.75 in 04/07/2025 Blood pressure systolic 150 mm Hg 04/07/2025 Weight 188.6 lbs 04/07/2025 BMI 32.62 kg/m2 04/07/2025 Encounters Encounter Location Date Provider Diagnosis [facility] [address] [place] [address] 05/31/2024 Sukhdeep Hoy Chest pain R07.9 [facility] [address] [place] [address] 07/04/2024 Sukhdeep Hoy Chest pain R07.9 [facility] [address] [place] [address] 03/03/2025 Sukhdeep Hoy [facility] [address] [place] [address] 12/28/2024 Sukhdeep Hoy Hypertension I10 [facility] [address] [place] [address] 01/27/2025 Sukhdeep Hoy Acute otitis media, unspecified otitis media type H66.90 ; Otalgia, unspecified laterality H92.09 ; Otitis externa H60.90 and Well adult Z00.00 [id number] [place] [address] 02/07/2025 Sukhdeep Hoy Acute otitis media, unspecified otitis media type H66.90 and Otalgia, unspecified laterality H92.[address] [address] 04/29/2024 Sukhdeep Hoy Chest pain R07.9 ; Hyperlipidemia E78.5 and Encounter for medication review Z79.[address] [address] 04/07/2025 Sukhdeep Hoy Foot pain, left M79. [address] [address] 10/27/2024 Sukhdeep Hoy Hypertension I10 [address] [address] 11/30/2024 [place] Sanderson Hypertension I10 and Class 1 obesity E66.[address] [address] 11/02/2024 Sukhdeep Hoy Assessments Encounter Date Diagnosis (ICD Code) Assessment Notes Treatment Notes Treatment Clinical Notes Section Notes 04/29/2024 Chest pain (ICD-10 - R07.9) 04/29/2024 Hyperlipidemia (ICD-10 - E78.5) 10/27/2024 Hypertension (ICD-10 - I10) checking BP next week - repat 11/30/2024 Hypertension (ICD-10 - I10) continue to monitor BP fu one month 11/30/2024 Class 1 obesity (ICD-10 - E66.9) fu one month work on diet, exercise 12/28/2024 Hypertension (ICD-10 - I10) good contrl at [facility] - just not here needs to lose 6 pounds by nexg month 01/27/2025 Acute otitis media, unspecified otitis media type (ICD-10 - H66.90) You have been prescribed antibiotics for otitis media. Antibiotics may bother your stomach, so try taking them with a light meal (unless instructed otherwise by your pharmacist). It is important to take them until they are finished. You can use kjjc-xfm-yuxwrfq acetaminophen or ibuprofen if needed for pain. You have been prescribed antibiotics. You should be extra vigilant about hand washing or using hand plasterer spray gun gel. You should follow up with your Primary Care Physician or return to clinic if not improving in the next 3-5 days. 02/07/2025 Acute otitis media, unspecified otitis media type (ICD-10 - H66.90) You have been prescribed antibiotics for otitis media. Antibiotics may bother your stomach, so try taking them with a light meal (unless instructed otherwise by your pharmacist). It is important to take them until they are finished. You can use zyck-gyt-mmaypie acetaminophen or ibuprofen if needed for pain. You have been prescribed antibiotics. You should be extra vigilant about hand washing or using hand plasterer spray gun gel. You should follow up with your Primary Care Physician or return to clinic if not improving in the next 3-5 days. 04/07/2025 Foot pain, left (ICD-10 - M79.672) 05/31/2024 Chest pain (ICD-10 - R07.9) 07/04/2024 Chest pain (ICD-10 - R07.9) 02/07/2025 Otalgia, unspecified laterality (ICD-10 - H92.09) 01/27/2025 Otalgia, unspecified laterality (ICD-10 - H92.09) 01/27/2025 Otitis externa (ICD-10 - H60.90) 04/29/2024 Encounter for medication review (ICD-10 - Z79.899) 01/27/2025 Well adult (ICD-10 - Z00.00) Plan Of Treatment Pending Test Test Name Order Date Exercise Stress Nuclear Test 09/28/2023 CMP (COMPLETE METABOLIC PANEL) 4 HEMOGLOBIN A1C (GLYCO) 01/27/2024 HEMOGLOBIN A1C (GLYCO) 01/27/2025 IRON, TOTAL 01/27/2025 LIPID PANEL (CHOL/TRIG/HDL/LDL) 01/28/20 25 LIPID PANEL (CHOL/TRIG/HDL/LDL) 01/27/20 24 CBC WITH DIFF 01/27/2024 Insulin Level 01/27/2024 Insulin Level 01/27/2025 STOOL OCCULT BLOOD 01/27/2025 STOOL OCCULT BLOOD 01/27/2024 XR Elbow 3 Views Left 10/22/2023 XR FOOT LT MIN 3 VIEWS 04/07/2025 Plain Treadmill Stress 10/09/2023 THYROID PANEL (T4/TSH/FREE T3) THYROID PANEL (T4/TSH/FREE T3) Lipid Panel 01/27/2024 CMP (COMP MET GARCIA) w/eGFR CKD-EPI 2024 CBC WITH DIFF 01/27/2025 Insurance Providers Payer Name Payer Address Payer Phone Subscriber Number Group Number Insured Name Patient Relationship to Insured Coverage Start Date Coverage End Date [employer] [place] [employer] [address] [facility] [address] [id number] Natali Verma Self - patient is the insured 3 Medical (General) History Medical History History ICD Code De Quervain's tenosynovitis M65.4 GERD (gastroesophageal reflux disease) K 21.9 Hot flashes N95.1 Hypertensive retinopathy H35.039 Insomnia G47.00 Migraine G43.909 Seasonal allergic rhinitis J30.2 Anxiety F41.9 Surgical History Surgery Date(Month/Year) DELIVERY
--- OUTSIDE RECORDS SUMMARY | 2025-04-07 14:06 | XMS_ITS | Encounter Summary ---
Author Organization [facility] Address [address] [place] [address] Care Team Providers Care Pasta Press Operator Name Role Phone Adán Fink MD Primary Care Provider [phone] Encounter Details Date Type Department Care Team (Late Contact Info) Description 06/21/2023 Abstract [facility] [address] [facility] [place] [phone] Joseline Ross PA [address] [place] [address] Dr [place], [place] [address] Social History Tobacco Use Types Packs/Day Years [...] EST Office Visit [facility] [address] [place] [phone] Joseline Ross PA [address] [place] [address] [place] [phone] documented as of this encounter Visit Diagnoses Not on filedocumented in this encounter Care Teams Pasta Press Operator Relationship Specialty Start Date End Date Adán Fink MD PCP - General 04/01/23 documented as of this encounter
--- OUTSIDE RECORDS SUMMARY | 2025-04-07 14:07 | XMS_ITS | Encounter Summary ---
Author Organization [facility] Address [address] [place] [address] Care Team Providers Care Chrome Tanner Name Role Phone Adán Fink MD Primary Care Provider [phone] Encounter Details Date Type Department Care Team (Late Contact Info) Description 09/09/2023 Clinisync Result Encounter [facility] External Department Unsolicited Joaquín Neff DO [address] [facility] [place] [address] Social History Tobacco Use Types Packs/Day Years [...] EST Office Visit [facility] [address] [facility] [place] [phone] Joseline Ross PA [address] [facility] [place] [address] documented as of this encounter Procedures Procedure Name Priority Date/Time Associated Diagnosis Comments MM TOMOSYNTHESIS SCREENING BI 09/09/2023 11:26 AM EST documented in this encounter Results * MM TOMOSYNTHESIS SCREENING BI (09/09/2023 11:26 AM EST) Anatomical Region Laterality Modality Other 09/09/2023 11:2 6 AM EST Narrative 09/09/2023 11:27 [place] [address] Mammography Report Signed Patient: NATALI VERMA MR#: [id number] : 1970 Acct:[id number] Age/Sex: 52 / F ADM Date: 09/08/23 Loc: MAMMO Attending Dr: Joaquín Neff D.O. Ordering Physician: Joaquín Neff D.O. Results: Date of Service: 09/08/23 Follow Up: Procedure(s): MM tomosynthesis screening BI Accession Number(s): [id number] cc: Joaquín Neff D.O.; Adán Fink M.D. Patient Name: NATALI VERMA MR#: [id number] : 1970 Exam Date: 09/08/2023 Ordering Doctor: DR Jaoquín Neff . RADIOLOGY REPORT PROCEDURE: MM TOMOSYNTHESIS SCREENING BI COMPARISON: MG MAMM SCREEN GEE W CAD, 05/31/2019. MG MAMM SCREEN 3D GEE CAD, 09/02/2022. INDICATIONS: Screening Calculator Name NCI Breast Cancer Risk Assessment Tool 5 Year Breast Cancer Risk 0.60% Lifetime Breast Cancer Risk 6.00% Personal Breast Cancer No Personal Ovarian Cancer No Treatments None Family Cancers None LOCATION: [facility] BREAST COMPOSITION: Scattered areas fibroglandular density. FINDINGS: DIAGNOSTIC CATEGORY 2--BENIGN FINDING. NO CHANGE FROM COMPARISON. Scattered benign-appearing nodules are present. Scattered benign-appearing calcifications are present. Scattered benign-appearing lymph nodes are present. RIGHT BREAST: No significant suspicious finding. LEFT BREAST: No significant suspicious finding. RECOMMENDATIONS: ROUTINE MAMMOGRAM AND CLINICAL EVALUATION IN 12 MONTHS. PLEASE NOTE: A NORMAL MAMMOGRAM DOES NOT EXCLUDE THE POSSIBILITY OF BREAST CANCER. A CLINICALLY SUSPICIOUS PALPABLE LUMP SHOULD BE BIOPSIED. Dictated by: Laurent Hansen MD on 09/09/2023 at 11:24 Approved by: Laurent Hansen MD on 09/09/2023 at 11:25 Dictated By: Laurent Hansen M.D. Signed By: 09/09/23 1127 DD/ 1126 TD/TT: Ramp Attendant: Procedure Note Radiology, Radiologist, MD - 09/09/2023 [place] [address] Mammography Report Signed Patient: NATALI VERMA MMR#: [id number] : 1970Acct:[id number] Age/Sex: 52 / FADM Date: 09/08/23 Loc: MAMMO Attending Dr: Joaquín Neff D.O. Ordering Physician: Joaquín Neff D.O.Results: Date of Service: 09/08/23Follow Up: Procedure(s): MM tomosynthesis screening BI Accession Number(s): [id number] cc: Joaquín Neff D.O.; Adán Fink M.D. Patient Name: NATALI VERMA MR#: [id number] : 1970 Exam Date: 09/08/2023 Ordering Doctor: DR Joaquín Neff . RADIOLOGY REPORT PROCEDURE: MM TOMOSYNTHESIS SCREENING BI COMPARISON: MG MAMM SCREEN GEE W CAD, 05/31/2019. MG MAMM SCREEN 3DBIL CAD, 09/02/2022. INDICATIONS: Screening Calculator Name NCI Breast Cancer Risk Assessment Tool 5 Year Breast Cancer Risk 0.60% Lifetime Breast Cancer Risk 6.00% Personal Breast Cancer No Personal Ovarian Cancer No Treatments None Family Cancers None LOCATION: [facility] BREAST COMPOSITION: Scattered areas fibroglandular density. FINDINGS: DIAGNOSTIC CATEGORY 2--BENIGN FINDING. NO CHANGE FROM COMPARISON. Scattered benign-appearing nodules are present. Scatteredbenign-appearing calcifications are present. Scattered benign-appearing lymph nodes are present. RIGHT BREAST: No significant suspicious finding. LEFT BREAST: No significant suspicious finding. RECOMMENDATIONS: ROUTINE MAMMOGRAM AND CLINICAL EVALUATION IN 12 MONTHS. PLEASE NOTE: A NORMAL MAMMOGRAM DOES NOT EXCLUDE THE POSSIBILITY OFBREAST CANCER. A CLINICALLY SUSPICIOUS PALPABLE LUMP SHOULD BE BIOPSIED. Dictated by: Laurent Hansen MD on 09/09/2023 at 11:24 Approved by: Laurent Hansen MD on 09/09/2023 at 11:25 Dictated By: Laurent Hansen M.D. Signed By:09/09/23 1127 DD/ 1126 TD/TT: Ramp Attendant: us Joaquín Aishwarya DO [facility] Final Result documented in this encounter Visit Diagnoses Not on filedocumented in this encounter Care Teams Chrome Tanner Relationship Specialty Start Date End Date Adán Fink MD PCP - General 04/01/23 documented as of this encounter
--- NOTE | 2025-04-07 14:22 | XR_ITS ---
[place] [id number] Patient Name: AMIE VERMA MRN: [id number] date: 1970 Sex: F Assigned Patient Location: [facility] Current Patient Location: [facility] Accession/Order Number: [id number] Exam Date: 04/07/2025 23:53 Report Date: 04/07/2025 23:54 At the request of: ILAN AVENDAÑO MD Procedure: XR foot LT min 3V XR foot LT min 3V 04/07/2025 2:47 PM SIGNS AND SYMPTOMS: ^Left Foot Pain PROTOCOL: Frontal, lateral, and oblique radiographs of the left foot COMPARISON: None FINDINGS: The joint spaces are preserved. There is no evidence of acute displaced fracture. No significant soft tissue swelling. No dislocation. XR/XR foot LT min 3V IMPRESSION: No fracture. Impression dictated by: Yusuf Madison M.D. 04/07/2025 11:54 PM Dictation Location: [place] [address] Electronically authenticated by: [id number] Y Date: 04/07/2025 23:54
--- OUTSIDE RECORDS SUMMARY | 2025-04-07 14:26 | XMS_ITS | CCD ---
Author Organization [facility] Care Team Providers Care Iron Melter Name Role Phone JAROCHO, DR TALAVERA Admitting Unavailable JAROCHO, DR TALAVERA Attending Unavailable HOY, DR TALAVERA Consulting Unavailable HOY, DR TALAVERA Primary Care Unavailable HOY, DR TALAVERA Primary Care Unavailable KARASIK, DR MORGAN Admitting Unavailable KARASIK, DR MORGAN Attending Unavailable KARASIK, DR MORGAN Consulting Unavailable ZIEBER, DR PASCUAL Wild Consulting Unavailable JAROCHO, DR TALAVERA Primary Care Unavailable KARASIK, DR MORGAN Admitting Unavailable KARASIK, DR MORGAN Attending Unavailable KARASIK, DR MORGAN Consulting Unavailable HOY, DR TALAVERA Primary Care Unavailable HOY, DR TALAVERA Admitting Unavailable HOY, DR TALAVERA Attending Unavailable JAROCHO, DR TALAVERA Consulting Unavailable Ilan Fink MD Primary Care Provider [phone] Joaquín Neff DO Attending Provider Ialn Fink MD Primary Care Provider [phone] Ilan Fink Primary Care Unavailable Joaquín Neff Attending Unavailable Joaquín Neff Admitting Unavailable JOSELINE GARCIA Attending Unavailable JOSELINE GARCIA Attending Unavailable Medications Current Medications Medication Drug Class(es) Dates Sig (Normalized) Sig (Original) dexlansoprazole 60 mg delayed release oral capsule (8 sources) Proton Pump Inhibitor take 1 capsule by mouth in the morning Dexilant [address] capsule Take 1 capsule by mouth in the morning. Active Completed/Discontinued Medications Medication Drug Class(es) Dates Sig (Normalized) Sig (Original) cetirizine hydrochloride 10 mg oral tablet (3 sources) Histamine-1 Receptor Antagonist Start: 02-10-2023 End: 11-02-2024 take 1 tablet by mouth in the morning cetirizine (ZyrTEC) 10 MG tablet Take 10 mg by mouth in the morning. 02/10/2023 11/02/2024 Discontinued (Therapy completed) 24 hr metFORMIN hydrochloride 500 mg extended release oral tablet (3 sources) Biguanide Start: 04-02-2023 End: 11-02-2024 take 1 tablet by mouth every twenty-four hours at mealtime metFORMIN XR (Glucophage-XR) 500 MG 24 hr tablet Indications: Insulin resistance Take 1 tablet (500 mg) by mouth in the evening. Take with meals. Do not crush, chew, or split. 30 tablet 11 04/02/2023 11/02/2024 Discontinued (Therapy completed) Problems Active Problems Problem Classification Problem Date Documented Date Episodic/Chronic Osteoporosis (2 sources) Postmenopausal osteoporosis; Translations: [Age-related osteoporosis without current pathological fracture] 11-02-2024 Chronic Other aftercare (2 sources) Surgical follow-up; Translations: [Encounter for follow-up examination after completed treatment for conditions other than malignant neoplasm] 11-16-2024 Episodic Other screening for suspected conditions (not mental disorders or infectious disease) (10 sources) Encounter for screening mammogram for malignant neoplasm of breast; Translations: [Encounter for screening for malignant neoplasm of cervix] Onset: 06-04-2022 Episodic Other skin disorders (1 source) Epidermal cyst; Translations: [Epidermal cyst] Onset: 11-02-2024 Episodic Unclassified (3 sources) CONTACT W/AND (SUSP) EXPOS COVID-19; Translations: [CONTACT W/AND (SUSP) EXPOS COVID-19] Onset: 11-29-2021 Viral infection (1 source) COVID-19; Translations: [COVID-19] Onset: 09-30-2021 Past or Other Problems Problem Classification Problem Date Documented Date Episodic/Chronic Immunizations and screening for infectious disease (1 source) Encounter for screening for human papillomavirus (HPV); Translations: [ENC SCREENING HUMAN PAPILLOMAVIRUS] Onset: 06-08-2022 Episodic Other skin disorders (8 sources) Multiple skin tags; Translations: [Other hypertrophic disorders of the skin] Onset: 04-29-2023 04-29-2023 Episodic Other upper respiratory infections (1 source) Acute recurrent frontal sinusitis; Translations: [ACUTE RECURRENT FRONTAL SINUSITIS] Onset: 11-29-2021 Episodic Unclassified (1 source) CONTACT W/AND (SUSP) EXPOS COVID-19; Translations: [CONTACT W/AND (SUSP) EXPOS COVID-19] Onset: 11-27-2021 Results Test Name Value Interpretation Reference Range Facility IGP,APTIMA HPV,AGE GDLNon AGE GDLN ACOG TESTING Note . [facility] Comment on above: TESTS RESULT FLAG U NITS REF RANGE LAB Clinician Provided Cytology Information Source.............Cervix;Endocervix No. of containers..01 ThinPrep Vial Age Algo ACOG [place]... FLAG LEGEND: L-Low Normal,H-High Normal,LL-Alert Low,HH-Alert High <-Panic Low,>-Panic High,A-Abnormal,AA-Critical Abnormal Performed at: 01 = [facility] [place] [address] Bee Michelle MD, HPV APTIMA Negative Negative [facility] Comment on above: This nucleic acid am plification test detects fourteen high- risk HPV types (16,18,31,33,35,39,45,51,52,56,58,59,66,68) without differentiation. Performed at: =[facility], [place] [id number] Inspector Water Pollution Control: Bee Michelle MD, Phone: [phone] Performed at: [address] [id number] Inspector Water Pollution Control: Bee Michelle MD, Phone: [phone] IGP, APTIMA HPV, RFX 16/18,45 Note . [facility] Comment on above: TESTS RESULT FLAG UN ITS REF RANGE LAB DIAGNOSIS: 02 NEGATIVE FOR INTRAEPITHELIAL LESION OR MALIGNANCY. Specimen adequacy: 02 Satisfactory for evaluation. Endocervical and/or squamous metaplastic cells (endocervical component) are present. Performed by: 02 Jeannie Monroy, [employer] ([employer]) . 02 Note: Note 02 The [...] L-Low Normal,H-High Normal,LL-Alert Low,HH-Alert High <-Panic Low,>-Panic High,A-Abnormal,AA-Critical Abnormal Performed at: 02 [facility] [address] [place] [address] Bee Michelle MD, BRUSH-SPATULA CERVIX ENDOCERVIX [facility] MM TOMOSYNTHESIS SCREENING B Ion 11-04-2024 [place] [address] Mammography Report Signed Patient: AMIE VERMA MR#: [id number] : 1970 Acct:[id number] Age/Sex: 54 / F ADM Date: 11/02/24 Loc: MAMMO Attending Dr: Joaquín Neff D.O. Ordering Physician: Joaquín Neff D.O. Results: Date of Service: 11/02/24 Follow Up: Procedure(s): MM tomosynthesis screening BI Accession Number(s): [id number] cc: Joaquín Neff D.O.; Ilan Fink M.D. Patient Name: AMIE VERMA MR#: [id number] : 1970 Exam Date: 11/02/2024 Ordering Doctor: [...] LOCATION: The [facility] BREAST COMPOSITION: There are scattered areas of [...] Signed By: 11/04/24 1054 DD/ 1053 TD/TT: Professional System Administrator: [facility] Radiology, Radiologist, MD - 11/04/2024 [place] [address] Mammography Report Signed Patient: AMIE VERMA MR#: [id number] : 1970 Acct:[id number] Age/Sex: 54 / F ADM Date: 11/02/24 Loc: MAMMO Attending Dr: Joaquín Neff D.O. Ordering Physician: Joaquín Neff D.O. Results: Date of Service: 11/02/24 Follow Up: Procedure(s): MM tomosynthesis screening BI Accession Number(s): [id number] cc: Joaquín Neff D.O.; Ilan Fink M.D. Patient Name: AMIE VERMA MR#: [id number] : 1970 Exam Date: 11/02/2024 Ordering Doctor: [...] LOCATION: The [facility] BREAST COMPOSITION: There are scattered areas of [...] Dictated By: Pascual Hammond M.D. Signed By: 11/04/244 DD/ 52 TD/TT: Professional System Administrator: [facility] Radiology Study observation (narrative) [facility] MM TOMOSYNTHESIS SCREENING B IOrdered By: Radiologist Radiology on 11-04-2024 [facility] [employer] Work Phone: Marcio 11-02-2024 L - -------- Specimen: [id number] Received: 11/03/24 Status: MARY ANNE Vierarandy Num: [id number] Spec Type: Surgical Subm Dr: Joaquín Neff Tissues: A Skin-Other than Cyst, tag, debridement or plastic repair (LEFT SHOULDER) Procedures: Marty HERRERA/Asia Hitchcock -------- Age/ Patient Sex Location Account Attending Physician -------- Amie Verma 54/F [place] [id number] Joaquín Neff -------- SPEC NUM: [id number] RECD: 11/03/24 STATUS: MARY ANNE STILES NUM: [id number] SUKHI: 11/02/24- SUBM DR: Joaquín Neff ENTERED: 11/03/[address] [facility] [address]: SPEC TYPE: Surgical DEPT: S ENTERED BY: [id number] RECV BY: [id number] ORDERED: HE, Gross/Micro L4 ORDERED: HE, Gross/Micro L4 Pathological Diagnosis Left should, cyst, excision: - Epidermal inclusion cyst. Clinical Information LT shoulder cyst Gross Description Received in formalin labeled with the patients name, date of , and Left shoulder is a medrano-moscoso, disrupted cystic structure received in two pieces, 0.5 x 0.3 x 0.2 cm, and 1.5 x 0.6 x 0.3 cm. 1 surface of each specimen is smooth and glistening, while the opposing surface displays adherent medrano-moscoso, friable material. The smooth surfaces are inked black. The larger specimen is bisected and entirely submitted with the smaller specimen intact in a single cassette. (1, ns, [id number] A) Microscopic Description Microscopic examination is performed. -------- Specimen: [id number] Received: 11/03/24 Status: GUANAKOBossman Stiles Num: [id number] Spec Type: Surgical Subm Dr: Joaquín Neff Tissues: A Skin-Other than Cyst, tag, debridement or plastic repair (LEFT SHOULDER) Procedures: SHARON, Gross/Micro L4 -------- Patient: Amie Verma [id number] (Continued) -------- Specimen: [id number] Received: 11/03/24 (Continued) Signed (signature on file) William Campbell MD 11/04/24 1447 -------- Specimen: [id number] Received: 11/03/24 Status: MARY ANNE Stiles Num: [id number] Spec Type: Surgical Subm Dr: Joaquín Neff Tissues: A Skin-Other than Cyst, tag, debridement or plastic repair (LEFT SHOULDER) Procedures: Marty HERRERA/Asia Hitchcock -------- Patient: Amie Verma [id number] (Continued) -------- Specimen: [id number] Received: 11/03/24 (Continued) CPT Codes 35809 -------- -------- Specimen: [id number] Received: 11/03/24 Status: MARY ANNE Stiles Num: [id number] Spec Type: Surgical Subm Dr: Joaquín Neff Tissues: A Skin-Other than Cyst, tag, debridement or plastic repair (LEFT SHOULDER) Procedures: Marty HERRERA/Asia L4 -------- Patient: Amie Verma [id number] (Continued) -------- Signed (signature on file) William Campbell MD 11/04/[address] [facility] MG MAMM SCREEN 3D GEE CADon 09-02-2022 MG MAMM SCREEN 3D GEE CAD Patient: AMIE VERMA Exam Date: 09/02/2022 : 1970 Gender:F Ordering : DR CATHY PAL . Admission #: [id number] Family : Order #: [id number] CLICK HERE TO VIEW EXAM RADIOLOGY REPORT [...] LOCATION: The [facility] BREAST COMPOSITION: Scattered areas fibroglandular density. FINDINGS: [...] Hammond M.D. on 09/02/2022 at 15:07 Normal [facility] PAP ACOG PANEL 2: 30 to 65on 06-11-2022 . . Normal [facility] Comment on above: Result Comment: Perf ormed at: WB Performed By: #### [id number] #### [facility] [address] [place] [address] Dr. Art Gold Age Gdln ACOG Testing 30-65 Normal [facility] Comment on above: Performed By: #### [id number] #### [facility] [address] [place] [address] Dr. Art Gold DIAGNOSIS: Comment Normal [facility] Comment on above: Result Comment: NEGA TIVE FOR INTRAEPITHELIAL LESION OR MALIGNANCY. Performed at: WB Performed By: #### 4 [id number] #### [facility] [address] [place] [address] Dr. Art Gold HPV Aptima Negative Normal Negative [facility] Comment on above: Result Comment: This nucleic acid amplification test detects fourteen high-risk HPV types (16,18,31,33,35,39,45,51,52,56,58,59,66,68) without differentiation. Performed at: =G Performed By: #### 4 [id number] #### [facility] [address] [place] [address] Dr. Art Gold Methodology: Comment Normal [facility] Comment on above: Result Comment: This liquid based ThinPrep(R) pap test was screened with the use of an image guided system. Performed at: WB Performed By: #### 4 [id number] #### [facility] [address] [place] [address] Dr. Art Gold Note: Comment Normal [facility] Comment on above: Result Comment: The Pap smear is a screening test designed to aid in the detection of premalignant and malignant conditions of the uterine cervix. It is not a diagnostic procedure and should not be used as the sole means of detecting cervical cancer. Both false-positive and false-negative reports do occur. . Performed at: WB Performed By: #### [id number] #### [facility] [address] [place] [address] Dr. Art Gold Performed by: Comment Normal [facility] Comment on above: Result Comment: Shannon Hansen, [employer] ([employer]) Performed at: WB Performed By: #### 4 [id number] #### [facility] [address] [place] [address] Dr. Art Gold Specimen adequacy: Comment Normal [facility] Comment on above: Result Comment: Sati sfactory for evaluation. Endocervical and/or squamous metaplastic cells (endocervical component) are present. Performed at: WB Performed By: #### 4 [id number] #### [facility] [address] [place] [address] Dr. Art Gold Covid-19 PCR (CVDTB)on SARS-CoV-2 (COVID-19) RNA TRISTEN+probe Ql (Unsp spec) Not detected Normal NOT DETECTED [facility] Comment on above: Result Comment: This test is not yet approved or cleared by the [place] FDA. When there are no FDA-approved or cleared tests available, and other criteria are met, FDA can make tests available under an emergency access mechanism called an Emergency Use Authorization (EUA). The EUA for this test is supported by the [place] of Health and Human Service's (HHS's) declaration [...] SARS-CoV-2. Performed By: #### C VDTB #### [facility] [address] [place] [address] Dr. Art Gold Covid-19 PCR (CVDTB)on SARS-CoV-2 (COVID-19) RNA TRISTEN+probe Ql (Unsp spec) Detected Critically abnormal NOT DETECTED [facility] Comment on above: Result Comment: This test is not yet approved or cleared by the [place] FDA. When there are no FDA-approved or cleared tests available, and other criteria are met, FDA can make tests available under an emergency access mechanism called an Emergency Use Authorization (EUA). The EUA for this test is supported by the [place] of Health and Human Service's (HHS's) declaration [...] longer be used). Performed By: #### C [facility] #### [facility] [address] [place] [address] Dr. Art Gold Vital Signs Date Time Vital Sign Value Performing Clinician Faci lity 11-16-2024 13:12-0500 Body mass index (BMI) [Ratio] 31.89 kg/m2 Joseline COLLADO Work Phone: [facility] 11-16-2024 13:12-0500 Body weight 84.28 kg Joseline COLLADO Work Phone: [facility] 11-16-2024 13:12-0500 Diastolic blood pressure 68 mm[Hg] Joseline COLLADO Work Phone: [facility] 11-16-2024 13:12-0500 Systolic blood pressure 110 mm[Hg] Joseline COLLADO Work Phone: [facility] 11-02-2024 13:11-0500 Body mass index (BMI) [Ratio] 32.61 kg/m2 Joseline COLLADO Work Phone: [facility] 11-02-2024 13:11-0500 Body weight 86.18 kg Joseline COLLADO Work Phone: [facility] 11-02-2024 13:11-0500 Diastolic blood pressure 82 mm[Hg] Joseline COLLADO Work Phone: [facility] 11-02-2024 13:11-0500 Systolic blood pressure 132 mm[Hg] Joseline COLLADO Work Phone: [facility] Healthcare Encounters Encounter Date Encounter Type Care Provider Facility Start: 11-16-2024 End: 11-16-2024 Bamboo flowsheet Joseline COLLADO Work Phone: [facility] Start: 11-16-2024 End: 11-16-2024 Bamboo flowsheet Joseline COLLADO Work Phone: [facility] Start: 11-16-2024 End: 11-16-2024 Postop follow up visit related to original px Joseline COLLADO Work Phone: [facility] Comment on above: Postop check Start: 11-16-2024 End: 11-16-2024 ambulatory JOSELINE GARCIA Not Available Start: 11-04-2024 End: 11-04-2024 [facility] Result Encounter Joaquín Aishwarya DO Work Phone: [facility] Unsolicited Start: 11-04-2024 End: 11-04-2024 [facility] Result Encounter Joaquín Aishwarya DO Work Phone: [facility] Unsolicited Start: 11-02-2024 End: 11-02-2024 Departed Referred Ilan Fink MD Work Phone: [facility] [place] Work Phone: Start: 11-02-2024 End: 11-02-2024 Bamboo flowsheet Joseline COLLADO Work Phone: [facility] Start: 11-02-2024 End: 11-08-2024 Bamboo flowsheet Joseline COLLADO Work Phone: [facility] Start: 11-02-2024 End: 11-08-2024 Clinisync Result Encounter Joseline COLLADO Work Phone: [facility] Unsolicited Start: 11-02-2024 End: 11-02-2024 Patient encounter procedure Joseline COLLADO Work Phone: [facility] Start: 11-02-2024 End: 11-02-2024 Periodic preventive med est patient 40-64yrs Joseline COLLADO Work Phone: [facility] Comment on above: Well woman exam with routine gynecological exam; Breast cancer screening by mammogram; Osteoporosis, post-menopausal (CMS/HCC) Start: 11-02-2024 End: 11-02-2024 ambulatory Ilan Fink MD Work Phone: [facility] Work Phone: Start: 09-02-2022 End: 09-03-[address] ILAN FINK Facility:[facility] Start: 06-04-2022 End: 06-04-[address] ILAN FINK Facility:[facility] Start: 11-27-2021 End: 11-27-[address] ILAN FINK Facility:[facility] Start: 09-26-2021 End: 09-26-[address] ILAN FINK Facility:[facility] Procedures Date Procedure Procedure Detail Performing Clinician Start: 11-04-2024 MM TOMOSYNTHESIS SCR EENING BI Joaquín Aishwarya DO Work Phone: Start: 11-04-2024 Mammography Joaquín Fazi o DO Work Phone: Start: 11-02-2024 IGP,APTIMA HPV,AGE GDLN Joseline COLLADO Work Phone: Start: 09-09-2023 Mammography Joseline COLLADO Work Phone: Start: 06-04-2022 Microscopic observat ion [Identifier] in Cervix by Cyto stain Joseline COLLADO Work Phone: Plan of Treatment Date Care Activity Detail Author Start: 06-04-2027 Screening for malignant neoplasm of cervix [facility] Start: 11-08-2025 End: 11-08-2025 Patient encounter procedure 11/08/2025 9:00 AM EST Office Visit [facility] [address] [place] [id number] Joseline Garcia PA [address] [place] [address] [facility] Start: 11-04-2025 Screening for malignant neoplasm of breast Mammogram [facility] Healthcare Start: 11-16-2024 End: 11-16-2024 Patient encounter procedure 11/16/2024 1:10 PM EST Office Visit [facility] [address] [place] [phone] Joseline Garcia PA [address] [place] [address] [place] [address] Arrived [facility] Comment on above: Arrived Start: 11-02-2024 End: 11-02-2025 DXA Skeletal system Views for bone density DEXA bone density Imaging Routine Osteoporosis, post-menopausal ([facility]/HCC) Expected: 11/02/2024 (Approximate), Expires: 11/02/2025 [facility] Comment on above: Expected: 11/02/2024 (Approximate), Expires: 11/02/2025 Start: 11-02-2024 End: 12-31-2025 MG Breast - bilateral Screening Bilateral screening mammogram Imaging Routine Breast cancer screening by mammogram Expected: 11/02/2024 (Approximate), Expires: 12/31/2025 [facility] Work Phone: Comment on above: Expected: 11/02/2024 (Approximate), Expires: 12/31/2025 Start: 11-02-2024 End: 11-02-2024 Patient encounter procedure 11/02/2024 1:00 PM EST Office Visit [facility] [address] [facility] [place] [phone] Joseline Garcia PA [address] [place] [address] Arrived [facility] Comment on above: Arrived Start: 09-09-2024 Screening for malignant neoplasm of breast Mammogram [facility] Start: 05-22-2024 Influenza vaccination Influenza Vacc ine (#1) [facility] Start: 1970 Screening for malignant neoplasm of colon [facility] THIN PREP TIS PAP AN D HR HPV DNA THIN PREP TIS PAP AND HR HPV DNA Pathology and Cytology Routine Well woman exam with routine gynecological exam Ordered: 11/02/2024 [facility] Comment on above: Ordered: 11/02/2024 Immunizations Immunization Date Immunization Notes Care Provider Fa cili 07-09-2017 influenza virus vacc ine, unspecified formulation Joseline COLLADO Work Phone: [facility] Payers Date Payer Category Payer Self-pay [id number] 2022 Medicaid (Managed Care) [employer] [id number] 1970 Unknown [id number] 1972 Unknown [id number] 593 1972 Unknown [id number] 593 1972 Unknown [id number] 593 1970 Unknown [id number]. 1259 1970 Unknown [id number] 1259 1959 Unknown [id number] Unknown [id number] 531 Social History Date Type Detail Facility Start: [facility]01-[facility]23 [facility] History of tobacco use Cigarette Smoker [facility] Start: 06-23-2023 End: 11-02-2024 Alcoholic beverage intake Current drinker of alcohol (finding) [facility] Start: 06-23-2023 End: 11-02-2024 History of Social function [facility] Start: 06-23-2023 End: 11-02-2024 Tobacco use panel [facility] Start: 04-01-2023 Tobacco Comment Patient smokes 5 or less cigarettes/dayThinking about quitting. [facility] Start: 04-01-2023 Alcohol Comment Alcohol: 1 or 2 drinks on typical day/monthly or less. Caffeine: 1-2 cups/day [facility] Start: 1970 Sex assigned at Not on file [facility] Tobacco smoking stat [facility] Unknown if ever smoked [facility] Work Phone: Start: 11-04-2024 Sex Female (finding) [facility] Start: 1970 Sex Assigned At Female F [facility] History of Present illness Narrative 11-16-2024 HEAVEN Ortiz - 11/16/2024 1:10 PM EST Note Date & Type Note Facility 11-16-2024 History of Presen t illness Narrative Reason for Appointment: Patient ID: Amie Verma is a 54 y.o. female who presents for Suture / Staple Removal Patient presents today for 1 Week Post Op Follow Up appointment. MEDICATIONS Current Outpatient Medications Medication Instructions Dexilant [address] capsule 1 capsule, Oral, Daily ALLERGIES No Known Allergies PROBLEMS Active Ambulatory Problems Diagnosis Date Noted Skin tags, multiple acquired 04/29/2023 Resolved Ambulatory Problems Diagnosis Date Noted No Resolved Ambulatory Problems Past Medical History: Diagnosis Date Anxiety Fatigue Gastritis History of migraine headaches Insomnia Pyelonephritis HISTORY PAST MEDICAL HISTORY SOCIAL HISTORY Past Medical History: Diagnosis Date Anxiety Fatigue Gastritis History of migraine headaches Insomnia Pyelonephritis Social History Tobacco Use Smoking status: Every Day Types: Cigarettes Smokeless tobacco: Not on file Tobacco comments: Patient smokes 5 or less cigarettes/day Thinking about quitting. Substance Use Topics Alcohol use: Yes Comment: Alcohol: 1 or 2 drinks on typical day/monthly or less. Caffeine: 1-2 cups/day Drug use: Never FAMILY HISTORY Family History Problem Relation Name Age of Onset Diabetes Mother Hypertension Mother Heart disease Mother Diabetes Father Hypertension Father Heart disease Father SURGICAL HISTORY Past Surgical History: Procedure Laterality Date SECTION, LOW TRANSVERSE 2013 REVIEW OF SYSTEMS Review of Systems: Review of Systems Constitutional: Negative. HENT: Negative. Eyes: Negative. Respiratory: Negative. Cardiovascular: Negative. Gastrointestinal: Negative. Genitourinary: Negative. Musculoskeletal: Negative. Skin: Negative. Neurological: Negative. All other systems reviewed and are negative. Hematological: Negative. Endocrine: Negative. Allergic/Immunologic: Negative. OBJECTIVE Objective: Physical Exam Constitutional: Appearance: Normal appearance. She is normal weight. HENT: Head: Normocephalic. Cardiovascular: Rate and Rhythm: Normal rate. Pulses: Normal pulses. Pulmonary: Effort: Pulmonary effort is normal. Breath sounds: Normal breath sounds. Abdominal: Palpations: Abdomen is soft. Musculoskeletal: General: Normal range of motion. Neurological: General: No focal deficit present. Mental Status: She is alert and oriented to person, place, and time. Psychiatric: Mood and Affect: Mood normal. Behavior: Behavior normal. Thought Content: Thought content normal. Judgment: Judgment normal. Vitals and nursing note reviewed. Vitals: Estimated body mass index is 31.89 kg/m as calculated from the following: Height as of 04/02/23: 5' 4 . Weight as of this encounter: 185 lb 12.8 oz. BP: 110/68 No LMP recorded. Patient is postmenopausal. ASSESSMENT & PLAN ICD-10-CM 1. Postop check Z09 Patient doing well, here for suture removal x 1 stitch. Tolerated well, pathology report reviewed Documented by HEAVEN Ortiz on behalf of: HEAVEN Ortiz documented in this encounter [facility] History of Present illness Narrative 11-02-2024 HEAVEN Ortiz - 11/02/2024 1:00 PM EST Note Date & Type Note Facility 11-02-2024 History of Presen t illness Narrative Reason for Appointment: Patient ID: Amie Verma is a 54 y.o. female who presents for Gynecologic Exam Patient presents today for Annual Exam. MEDICATIONS Current Outpatient Medications Medication Instructions Dexilant [address] capsule 1 capsule, Oral, Daily ALLERGIES No Known Allergies PROBLEMS Active Ambulatory Problems Diagnosis Date Noted Skin tags, multiple acquired 04/29/2023 Resolved Ambulatory Problems Diagnosis Date Noted No Resolved Ambulatory Problems Past Medical History: Diagnosis Date Anxiety Fatigue Gastritis History of migraine headaches Insomnia Pyelonephritis HISTORY PAST MEDICAL HISTORY SOCIAL HISTORY Past Medical History: Diagnosis Date Anxiety Fatigue Gastritis History of migraine headaches Insomnia Pyelonephritis Social History Tobacco Use Smoking status: Every Day Types: Cigarettes Smokeless tobacco: Not on file Tobacco comments: Patient smokes 5 or less cigarettes/day Thinking about quitting. Substance Use Topics Alcohol use: Yes Comment: Alcohol: 1 or 2 drinks on typical day/monthly or less. Caffeine: 1-2 cups/day Drug use: Never FAMILY HISTORY Family History Problem Relation Name Age of Onset Diabetes Mother Hypertension Mother Heart disease Mother Diabetes Father Hypertension Father Heart disease Father SURGICAL HISTORY Past Surgical History: Procedure Laterality Date SECTION, LOW TRANSVERSE 2013 REVIEW OF SYSTEMS Review of Systems: Review of Systems Constitutional: Negative. HENT: Negative. Eyes: Negative. Respiratory: Negative. Cardiovascular: Negative. Gastrointestinal: Negative. Genitourinary: Negative. Musculoskeletal: Negative. Skin: Negative. Neurological: Negative. All other systems reviewed and are negative. Hematological: Negative. Endocrine: Negative. Allergic/Immunologic: Negative. OBJECTIVE Objective: Physical Exam Constitutional: Appearance: Normal appearance. She is well-developed. Genitourinary: Vulva normal. Right Adnexa: not tender and no mass present. Left Adnexa: not tender and no mass present. No cervical discharge. Breasts: Breasts are soft. Right: Normal. Left: Normal. HENT: Head: Normocephalic. Nose: Nose normal. Mouth/Throat: Mouth: Mucous membranes are moist. Cardiovascular: Rate and Rhythm: Normal rate and regular rhythm. Pulmonary: Effort: Pulmonary effort is normal. Breath sounds: Normal breath sounds. Abdominal: General: Bowel sounds are normal. There is no distension. Palpations: Abdomen is soft. Tenderness: There is no abdominal tenderness. There is no guarding or rebound. Musculoskeletal: General: No swelling. Normal range of motion. Cervical back: Normal range of motion. Right lower leg: No edema. Left lower leg: No edema. Neurological: General: No focal deficit present. Mental Status: She is alert and oriented to person, place, and time. Skin: General: Skin is warm and dry. Psychiatric: Mood and Affect: Mood normal. Behavior: Behavior normal. Vitals and nursing note reviewed. Exam conducted with a department traffic freight router present. Vitals: Estimated body mass index is 35.87 kg/m as calculated from the following: Height as of 04/02/23: 5' 4 . Weight as of 06/23/23: 209 lb. BP: No LMP recorded. ASSESSMENT & PLAN ICD-10-CM 1. Well woman exam with routine gynecological exam Z01.419 THIN PREP TIS PAP AND HR HPV DNA 2. Breast cancer screening by mammogram Z12.31 Bilateral screening mammogram Bilateral screening mammogram 3. Osteoporosis, post-menopausal (CMS/HCC) M81.0 DEXA bone density Annual: Patient presents today for an annual exam. Patient states she is doing well and has no complaints. Pap was obtained without difficulty and patient given mammogram order to have scheduled/obtained. Orders Placed This Encounter Procedures Bilateral screening mammogram DEXA bone density Follow Up: Patient is to return in one year for annual unless needed otherwise. Documented by Aleida Ferreira MA on behalf of: HEAVEN Ortiz documented in this encounter [facility] Evaluation note Note Date & Type Note Facility Evaluation note Diagnosis Well woman exam with routine gynecological exam Routine gynecological examination Breast cancer screening by mammogram Osteoporosis, post-menopausal (CMS/[facility]) Senile osteoporosis documented in this encounter [facility] Evaluation note Note Date & Type Note Facility Evaluation note No assessment information availa [facility] Work Phone: Evaluation note Note Date & Type Note Facility Evaluation note Diagnosis Postop check Follow-up examination, following unspecified surgery documented in this encounter [facility] Summary Purpose Family History No Family History Records FoundNo Family History Records FoundNo Family History Records Found Advance Directives No Advanced Directives Records Found Advance Directive Response Recorded Date/ Time Advance Directives No October 3:00pm Chief Complaint and Reason for Visit Chief Complaint Admit Date Left shoulder cyst November 02, 2024 5:00pm Additional Source Comments INFORMATION SOURCE (unrecogn ized section and content) DATE CREATED AUTHOR 09/13/2022 [facility] DATE CREATED AUTHOR AUTHOR'S ORGANIZ ATION 11/14/2024 [facility] DATE CREATED AUTHOR AUTHOR'S ORGANIZ ATION 11/18/2024 [facility] EP[employer] Care Teams (unrecognized sec tion and content) Iron Melter Relationship Specialty Start Date End Date Ilan Fink MD [address] [place] [address] PCP - General 04/01/23 Iron Melter Relationship Specialty Start Date End Date Ilan Fink MD [address] [place] [address] PCP - General 04/01/23 Team Status: Active Member Role Status Dates Ilan Fink MD Primary Care Provider Active Team Status: Inactive Member Role Status Dates Joaquín Neff DO Attending Provider Active Start : November 02, 2024 End: November 02, 2024 Ilan Fink MD Primary Care Provider Active Start: November 02, 2024 End: November 02, 2024 Iron Melter Relationship Specialty Start Date End Date Ilan Fink MD [address] [place] [address] PCP - General 04/01/23 Iron Melter Relationship Specialty Start Date End Date Ilan Fink MD [address] [place] [address] PCP - General 04/01/23 Iron Melter Relationship Specialty Start Date End Date Ilan Fink MD [address] [place] [address] PCP - General 04/01/23 Reason for Visit (unrecogniz ed section and content) Reason Comments Gynecologic Exam Reason Comments Suture / Staple Removal Goals (unrecognized section and content) Goals may be documented in a n alternate section FOR RECORDS PERTAINING TO PATIENTS WHO ARE [...] BE BASED ON THE PRIMARY CLINICAL RECORDS. [facility]. provides no warranty or guarantee of the accuracy or completeness of information in this document.
== END 2025-04-07 14:01 | disposition home or self-care (01) ==
LOC: RAD 14:04
PROVIDERS: PCP Family Medicine; Visit Provider Family Medicine
DX: M79.672 Pain in left foot (principal)
CPT/HCPCS: 73630

== ENCOUNTER 2025-07-01 14:09 | Emergency (ER) | payer OTHER, SELFPAY ==
[2025-07-01 14:17] VITALS: BP 161/72; PULSE 91; TEMP 36.7; O2SAT 99; BMI 33.7
--- OUTSIDE RECORDS SUMMARY | 2025-07-01 14:19 | XMS_ITS | CCD ---
Author Organization [facility] Care Team Providers Care Temporary Staff Accountant Name Role Phone JAROCHO, DR TALAVERA Admitting [...] Unavailable Ilan Fink MD Primary Care Provider [phone] Joaquín Neff DO Attending Provider [phone] Ilan Fink MD Primary Care Provider [phone] Ilan Fink Primary Care Unavailable Joaquín Neff Attending Unavailable Joaquín Neff Admitting Unavailable Ilan Fink MD Primary Care Provider [phone] JOSELINE GARCIA Attending Unavailable JOSELINE GARCIA Attending Unavailable PASCUAL DO Attending Unavailable ILAN FINK Referring Unavailable PASCUAL DO Referring Unavailable PASCUAL DO Attending Unavailable Medications Current Medications Medication Drug Class(es) Dates Sig (Normalized) Sig (Original) dexlansoprazole 60 mg delayed release oral capsule (14 sources) Proton Pump Inhibitor take 1 capsule by mouth in the morning Dexilant [address] capsule Take 1 capsule by mouth in the morning. Active predniSONE 10 mg oral tablet (5 sources) Start: 05-10-2025 predniSONE (Deltasone) 10 MG tablet Indications: Pain in unspecified foot , Dunaway's neuroma of left foot , Peripheral neuritis of left foot , Capsulitis of metatarsophalangeal (MTP) joint of left foot , Difficulty walking 1 tablet twice daily x 7 days; followed by 1 tablet daily as directed until complete 21 tablet 05/10/2025 Active Completed/Discontinued Medications Medication Drug Class(es) Dates [...] other than malignant neoplasm] 11-16-2024 Episodic Other connective tissue disease (2 sources) Foot pain; Translations: [Pain in unspecified foot] 05-10-2025 Episodic Other connective tissue disease (2 sources) Capsulitis of metatarsophalangeal joint of left foot; Translations: [Other enthesopathy of left foot and ankle] 05-10-2025 Episodic Other connective tissue disease (2 sources) Pain in left foot; Translations: [Pain in left foot] 05-25-2025 Episodic Other nervous system disorders (4 sources) Mortons neuroma of left foot; Translations: [Lesion of plantar nerve, left lower limb] 05-10-2025 Chronic Other nervous system disorders (4 sources) Left foot neuritis; Translations: [Unspecified mononeuropathy of left lower limb] 05-10-2025 Chronic Other nervous system disorders (4 sources) Difficulty walking; Translations: [Difficulty in walking, not elsewhere classified] 05-10-2025 Chronic Other screening for suspected conditions (not mental disorders or infectious disease) (10 sources) Encounter for screening mammogram for malignant neoplasm of breast; Translations: [Encounter for screening for malignant neoplasm of cervix] Onset: 2 Episodic Other skin disorders (1 source) Epidermal cyst; Translations: [Epidermal cyst] Onset: 5 Episodic Unclassified (3 sources) CONTACT W/AND (SUSP) EXPOS COVID-19; Translations: [CONTACT W/AND (SUSP) EXPOS COVID-19] Onset: 2 Viral infection (1 source) COVID-19; Translations: [COVID-19] Onset: 2 Past or Other Problems Problem Classification Problem Date Documented Date Episodic/Chronic Immunizations and screening for infectious disease (1 source) Encounter for screening for human papillomavirus (HPV); Translations: [ENC SCREENING HUMAN PAPILLOMAVIRUS] Onset: 06-08-2022 Episodic Other skin disorders (14 sources) Multiple skin tags; Translations: [Other hypertrophic disorders of the skin] Onset: 04-29-2023 04-29-2023 Episodic Other upper respiratory infections (1 source) Acute recurrent frontal sinusitis; Translations: [ACUTE RECURRENT FRONTAL SINUSITIS] Onset: 11-29-2021 Episodic Unclassified (1 source) CONTACT W/AND (SUSP) EXPOS COVID-19; Translations: [CONTACT W/AND (SUSP) EXPOS COVID-19] Onset: 11-27-2021 Results Test Name Value Interpretation Reference Range Facility XR Foot - left 3 [facility] Result: 3 views left foot: Weight-bearing: DP, oblique, lateral: 05/10/2025: Unremarkable for acute osseous or joint pathology. Unremarkable for fracture or stress fracture changes. Central MTP joints intact without DJD or AVN. Metatarsal parabola acceptable. Digits are in rectus position. [facility] Radiology Study observation (narrative) [facility] IGP,APTIMA HPV,AGE GDLNon AGE GDLN ACOG TESTING Note . [facility] Comment on above: TESTS RESULT FLAG UN ITS REF RANGE LAB Clinician Provided Cytology Information Source.............Cervix;Endocervix No. of containers..01 ThinPrep Vial Age Algo ACOG [place]... FLAG LEGEND: L-Low Normal,H-High Normal,LL-Alert Low,HH-Alert High <-Panic Low,>-Panic High,A-Abnormal,AA-Critical Abnormal Performed at: 01 =G [address] [address] Bee Michelle MD, HPV APTIMA Negative Negative [facility] Comment on above: This nucleic acid am plification test detects fourteen high- risk HPV types (16,18,31,33,35,39,45,51,52,56,58,59,66,68) without differentiation. Performed at: =[address] [id number] [place] Team Leader: Bee Michelle MD, Phone: [phone] Performed at: [address] [id number] [place] Team Leader: Bee Michelle MD, Phone: [phone] IGP, APTIMA HPV, RFX 16/18,45 Note . [facility] Comment on above: TESTS RESULT FLAG UN ITS REF RANGE LAB DIAGNOSIS: 02 NEGATIVE FOR INTRAEPITHELIAL LESION OR MALIGNANCY. Specimen adequacy: 02 Satisfactory for evaluation. Endocervical and/or squamous metaplastic cells (endocervical component) are present. Performed by: 02 Jeannie Monroy Brass Chaser ([facility]) . 02 Note: Note 02 The Pap [...] High,A-Abnormal,AA-Critical Abnormal Performed at: 02 WB [facility] [address] [address] Bee Michelle MD, BRUSH-SPATULA CERVIX ENDOCERVIX [facility] [place] MM TOMOSYNTHESIS SCREENING B Ion 11-04-[address] [address] Mammography Report Signed Patient: AMIE VERMA MR#: [id number] : 1970 Acct:[id number] Age/Sex: 54 / F ADM Date: 11/02/24 Loc: MAMMO Attending Dr: Joaquín Neff D.O. Ordering Physician: Joaquín Neff D.O. Results: Date of Service: 11/02/24 Follow Up: Procedure(s): MM tomosynthesis screening BI Accession Number(s): [id number] cc: Joaquín Neff D.O.; Ilan Fink M.D. Patient Name: AMIE VERMA MR#: [id number] : 1970 Exam Date: 11/02/2024 Ordering Doctor: [...] LOCATION: [facility] BREAST COMPOSITION: There are scattered areas [...] Signed By: 11/04/24 1054 DD/ 1053 TD/TT: Medical Lead: [facility] Radiology, Radiologist, - 11/04/2024 [place] [address] Mammography Report Signed Patient: AMIE VERMA MR#: [id number] : 1970 Acct:[id number] Age/Sex: 54 / F ADM Date: 11/02/24 Loc: MAMMO Attending Dr: Joaquín Neff D.O. Ordering Physician: Joaquín Neff D.O. Results: Date of Service: 11/02/24 Follow Up: Procedure(s): MM tomosynthesis screening BI Accession Number(s): [id number] cc: Joaquín Neff D.O.; Ilan Fink M.D. Patient Name: AMIE VERMA MR#: [id number] : 1970 Exam Date: 11/02/2024 Ordering Doctor: [...] LOCATION: [facility] BREAST COMPOSITION: There are scattered areas [...] Signed By: 11/04/24 1054 DD/ 1053 TD/TT: Medical Lead: [facility] Radiology Study observation (narrative) [facility] MM TOMOSYNTHESIS SCREENING B IOrdered By: Radiologist Radiology on 11-04-2024 [facility] [employer] Work Phone: Marcio 11-02-2024 L - -------- Specimen: [id number] Received: 11/03/24 Status: MARY ANNE Stiles Num: [id number] Spec Type: Surgical Subm Dr: Joaquín Neff Tissues: A Skin-Other than Cyst, tag, debridement or plastic repair (LEFT SHOULDER) Procedures: Marty HERRERA/Asia Hitchcock -------- Age/ Patient Sex Location Account Attending Physician -------- Amie Verma 54/F CHANTEL [id number] Joaquín Neff -------- SPEC NUM: [id number] RECD: 11/03/24 STATUS: MARY ANNE STILES NUM: [id number] SUKHI: 11/02/24- [facility] DR: Joaquín Neff ENTERED: 11/03/[address] [facility] [address]: SPEC TYPE: Surgical DEPT: S ENTERED BY: [id number] RECV BY: [id number] ORDERED: HE, Gross/Micro L4 ORDERED: HE, Gross/Micro [...] intact in a single cassette. (1, ns, [id number] A) Microscopic Description Microscopic examination is performed. -------- Specimen: [id number] Received: 11/03/24 Status: MARY ANNE Vierarandy Num: [id number] Spec Type: Surgical Subm Dr: Joaquín Neff Tissues: A Skin-Other than Cyst, tag, debridement or plastic repair (LEFT SHOULDER) Procedures: SHARON Gross/Micro L4 -------- Patient: Amie Verma [id number] (Continued) -------- Specimen: [id number] Received: 11/03/24 (Continued) Signed (signature on file) William Campbell MD 11/04/24 1447 -------- Specimen: [id number] Received: 11/03/24 Status: MARY ANNE Stiles Num: [id number] Spec Type: Surgical Subm Dr: Joaquín Neff Tissues: A Skin-Other than Cyst, tag, debridement or plastic repair (LEFT SHOULDER) Procedures: Marty HERRERA/Asia Hitchcock -------- Patient: Abhishek Vermaia [id number] (Continued) -------- Specimen: [id number] Received: 11/03/24 (Continued) CPT Codes 66748 -------- -------- Specimen: [id number] Received: 11/03/24 Status: MARY ANNE Linsey Num: [id number] Spec Type: Surgical Subm Dr: Joaquín Neff Tissues: A Skin-Other than Cyst, tag, debridement or plastic repair (LEFT SHOULDER) Procedures: Marty HERRERA/Asia Hitchcock -------- Patient: Amie Verma [id number] (Continued) -------- Signed (signature on file) William Campbell MD 11/04/24 1447 Normal [facility] MG MAMM SCREEN 3D GEE CADon 09-02-2022 MG MAMM SCREEN 3D GEE CAD Patient: AMIE VERMA Exam Date: 09/02/2022 : 1970 Gender:F Ordering : DR CATHY PAL . Admission #: [id number] Family : Order #: [id number] CLICK HERE TO VIEW EXAM RADIOLOGY REPORT [...] Hammond M.D. on 09/02/2022 at 15:07 Normal [facility] PAP ACOG PANEL 2: 30 to 65on 06-11-2022 . . Normal [facility] Comment on above: Result Comment: Perf ormed at: WB Performed By: #### 4 [id number] #### [facility] [address] [address] [address] Art Gold Age Gdln ACOG Testing 30-65 Normal [facility] Comment on above: Performed By: #### 4 [id number] #### [facility] [address] [place] [address] Dr. Art Gold DIAGNOSIS: Comment Normal [facility] Comment on above: Result Comment: NEGA TIVE FOR INTRAEPITHELIAL LESION OR MALIGNANCY. Performed at: WB Performed By: #### 4 [id number] #### [facility] [address] [place] [address] Dr. Art Gold HPV Aptima Negative Normal Negative [facility] Comment on above: Result Comment: This nucleic acid amplification test detects fourteen high-risk HPV types (16,18,31,33,35,39,45,51,52,56,58,59,66,68) without differentiation. Performed at: =G Performed By: #### 4 [id number] #### [facility] [address] [place] [address] Dr. Art Gold Methodology: Comment Normal [facility] Comment on above: Result Comment: This liquid based ThinPrep(R) pap test was screened with the use of an image guided system. Performed at: WB Performed By: #### 4 [id number] #### [facility] [address] [place] [address] Dr. Art Gold Note: Comment Normal [facility] Comment on above: Result Comment: The Pap smear is a screening test designed to aid in the detection of premalignant and malignant conditions of the uterine cervix. It is not a diagnostic procedure and should not be used as the sole means of detecting cervical cancer. Both false-positive and false-negative reports do occur. . Performed at: WB Performed By: #### 4 [id number] #### [facility] [address] [place] [address] Dr. Art Gold Performed by: Comment Normal [facility] Comment on above: Result Comment: Shannon Hansen, Brass Chaser (ASCP) Performed at: WB Performed By: #### 4 [id number] #### [facility] [address] [place] [address] Dr. Art Gold Specimen adequacy: Comment Normal [facility] Comment on above: Result Comment: Sati sfactory for evaluation. Endocervical and/or squamous metaplastic cells (endocervical component) are present. Performed at: WB Performed By: #### 4 [id number] #### [facility] [address] [place] [address] Dr. Art Gold Covid-19 PCR (CVDTB)on SARS-CoV-2 [...] for this test is supported by the [place] of Health and Human Service's (HHS's) declaration [...] C VDTB #### [facility] [address] [place] [address] Dr. Art Gold Covid-19 PCR (CVDTB)on SARS-CoV-2 [...] for this test is supported by the [place] of Health and Human Service's (HHS's) declaration [...] longer be used). Performed By: #### C [facility] #### [facility] [address] [place] [address] Dr. Art Gold Vital Signs Date Time Vital Sign Value Performing Clinician Faci lity 05-25-2025 09:01-0400 Body height 162.6 cm Pascual Hi DPM Work Phone: [facility] 05-25-2025 09:01-0400 Body mass index (BMI) [Ratio] 31.76 kg/m2 Pascual Do DPM Work Phone: [facility] 05-25-2025 09:01-0400 Body weight 83.92 kg Pascual Hi DPM Work Phone: [facility] 05-10-2025 14:09-0400 Body height 162.6 cm Pascual Do DPM Work Phone: [facility] 05-10-2025 14:09-0400 Body mass index (BMI) [Ratio] 31.76 kg/m2 Pascualkhushbu Do DPM Work Phone: [facility] 05-10-2025 14:09-0400 Body weight 83.92 kg Pascualkhushbu Do DPM Work Phone: [facility] 11-16-2024 13:12-0500 Body mass index (BMI) [Ratio] 31.89 kg/m2 Joseline COLLADO Work Phone: [facility] 11-16-2024 13:12-0500 Body weight 84.28 kg Joseline COLLADO Work Phone: [facility] 11-16-2024 13:12-0500 Diastolic blood pressure 68 mm[Hg] Joseline COLLADO Work Phone: [facility] 11-16-2024 13:12-0500 Systolic blood pressure 110 mm[Hg] Joseline COLLADO Work Phone: [facility] 11-02-2024 13:11-0500 Body mass index (BMI) [Ratio] 32.61 kg/m2 Joseline COLLADO Work Phone: [facility] 11-02-2024 13:110500 Body weight 86.18 kg Joseline COLLADO Work Phone: [facility] 11-02-2024 13:11-0500 Diastolic blood pressure 82 mm[Hg] Joseline COLLADO Work Phone: [facility] 11-02-2024 13:11-0500 Systolic blood pressure 132 mm[Hg] Joseline COLLADO Work Phone: [facility] Healthcare Encounters Encounter Date Encounter Type Care Provider Facility Start: 05-25-2025 End: 05-25-2025 Bamboo flowsche Do DPM Work Phone: [facility] Start: 05-25-2025 End: 05-25-2025 Bamboo flowsheet Pascual Do DPM Work Phone: [facility] Start: 05-25-2025 End: 05-25-2025 Office outpatient visit 15 minutes Pascual Do DPM Work Phone: [facility] Comment on above: Dunaway's neuroma of left foot (Primary Dx); Peripheral neuritis of left foot; Pain in left foot; Difficulty walking Start: 05-25-2025 End: 05-25-2025 ambulatory PASCUAL DO Not Available Start: 05-10-2025 End: 05-10-2025 ambulatory PASCUAL DO Not Available Start: 05-10-2025 End: 05-10-2025 Bamboo flowsheet Pascual Do DPM Work Phone: [facility] Start: 05-10-2025 End: 05-10-2025 Bamboo flowsheet Pascual Do DPM Work Phone: [facility] Start: 05-10-2025 End: 05-10-2025 Office outpatient new 30 minutes Pascual Do DPM Work Phone: [facility] Comment on above: Dunaway's neuroma of left foot (Primary Dx); Pain in unspecified foot; Peripheral neuritis of left foot; Capsulitis of metatarsophalangeal (MTP) joint of left foot; Difficulty walking Start: 05-10-2025 End: 05-10-2025 ambulatory PASCUAL A HI Not Available Start: 11-16-2024 End: 11-16-2024 Bamboo flowsheet Joseline COLLADO Work Phone: [facility] Start: 11-16-2024 End: 11-16-2024 Bamboo flowsheet Joseline COLLADO Work Phone: [facility] Start: 11-16-2024 End: 11-16-2024 Postop follow up visit related to original px Joseline COLLADO Work Phone: [facility] Comment on above: Postop check Start: 11-16-2024 End: 11-16-2024 ambulatory JOSELINE GARCIA Not Available Start: 11-04-2024 End: 11-04-2024 Clinisync Result Encounter Joaquín Aishwarya DO Work Phone: [facility] External Department Unsolicited Start: 11-04-2024 End: 11-04-2024 Clinisync Result Encounter Joaquín Aishwarya DO Work Phone: [facility] External Department Unsolicited Start: 11-02-2024 End: 11-02-2024 Departed Referred Ilan Fink MD Work Phone: [facility] [place] Work Phone: Start: 11-02-2024 End: 11-02-2024 Bamboo flowsheet Joseline COLLADO Work Phone: [facility] Start: 11-02-2024 End: 11-08-2024 Bamboo flowsheet Joseline COLLADO Work Phone: [facility] Start: 11-02-2024 End: 11-08-2024 Clinisync Result Encounter Joseline COLLADO Work Phone: [facility] External Department Unsolicited Start: 11-02-2024 End: 11-02-2024 Patient encounter procedure Joseline COLLADO Work Phone: [facility] Start: 11-02-2024 End: 11-02-2024 Periodic preventive med est patient 40-64yrs Joseline COLLADO Work Phone: [facility] Comment on above: Well woman exam with routine gynecological exam; Breast cancer screening by mammogram; Osteoporosis, post-menopausal ([facility]) Start: 11-02-2024 End: 11-02-2024 ambulatory Ilan Fink MD Work Phone: [facility] Work Phone: Start: 09-02-2022 End: 09-03-[address] ILAN FINK Facility:[facility]1 Start: 06-04-2022 End: 06-04-[address] ILAN FINK Facility:[facility] Start: 11-27-2021 End: 11-27-[address] ILAN FINK Facility:[facility] Start: 09-26-2021 End: 09-26-[address] ILAN FINK Facility:[facility] Procedures Date Procedure Procedure Detail Performing Clinician Start: 05-10-2025 Radex foot complete minimum 3 views Pascual Do DPM Work Phone: Start: 11-04-2024 MM TOMOSYNTHESIS SCR EENING BI Joaquín Aishwarya DO Work Phone: Start: 11-04-2024 Mammography Joaquín Fazi o DO Work Phone: Start: 11-02-2024 IGP,APTIMA HPV,AGE GDLN Joseline COLLADO Work Phone: Start: 11-02-2024 Microscopic observat ion [Identifier] in Cervix by Cyto stain Pascual Do DPM Work Phone: Start: 09-09-2023 Mammography Joseline COLLADO Work Phone: Start: 06-04-2022 Microscopic observat ion [Identifier] in Cervix by Cyto stain Joseline COLLADO Work Phone: Plan of Treatment Date Care Activity Detail Author Start: 11-02-2029 Screening for malignant neoplasm of cervix [facility] Start: 06-04-2027 Screening for malignant neoplasm of cervix [facility] Start: 11-08-2025 End: 11-08-2025 Patient encounter procedure [facility] Start: 11-04-2025 Screening for malignant neoplasm of breast Mammogram [facility] Start: 06-15-2025 End: 06-15-2025 Patient encounter procedure 06/15/2025 8:45 AM EDT Office Visit [facility] [address] [place] [address] Pascual Do DPM [address] [place] [address] [facility] Start: 05-25-2025 End: 05-25-2025 Patient encounter procedure 05/25/2025 8:45 AM EDT Office Visit [facility] [address] [place] [address] Pascual Do DPM [address] [place] [address] Arrived [facility] Comment on above: Arrived Start: 05-24-2025 End: 05-24-2025 Patient encounter procedure 05/24/2025 11:00 AM EDT Office Visit [facility] [address] [place] [address] Pascual Do DPM [address] [place] [address] [facility] Start: 05-22-2025 Influenza vaccination Influenza Vacc ine (#1) [facility] Start: 05-10-2025 End: 05-10-2025 Patient encounter procedure 05/10/2025 1:45 PM EDT Office Visit [facility] [address] [place] [address] Pascual Do, DPM [address], [place] [id number] Pain in unspecified foot [facility] Comment on above: Pain in unspecified foot Start: 11-16-2024 End: 11-16-2024 Patient encounter procedure 11/16/2024 1:10 PM EST Office Visit [facility] [address] [place] [address] Joseline Garcia PA [address] [place] [address] [place] [address] Arrived [facility] Comment on above: Arrived Start: 11-02-2024 End: 11-02-2025 DXA Skeletal system Views for bone density DEXA bone density Imaging Routine Osteoporosis, post-menopausal ([facility]) Expected: 11/02/2024 (Approximate), Expires: 11/02/2025 [facility] Comment on above: Expected: 11/02/2024 (Approximate), Expires: 11/02/2025 Start: 11-02-2024 End: 12-31-2025 MG Breast - bilateral Screening Bilateral screening mammogram Imaging Routine Breast cancer screening by mammogram Expected: 11/02/2024 (Approximate), Expires: 12/31/2025 [facility] Work Phone: Comment on above: Expected: 11/02/2024 (Approximate), Expires: 12/31/2025 Start: 11-02-2024 End: 11-02-2024 Patient encounter procedure 11/02/2024 1:00 PM EST Office Visit [facility] [address] [place] [address] Joseline Garcia, PA [address] [place] [address] Arrived [facility] Comment on above: Arrived Start: 09-09-2024 Screening for malignant neoplasm of breast Mammogram [facility] Start: 05-22-2024 Influenza vaccination Influenza Vacc ine (#1) [facility] Start: 1970 Screening for malignant neoplasm of colon [facility] THIN PREP TIS PAP AN D HR HPV DNA THIN PREP TIS PAP AND HR HPV DNA Pathology and Cytology Routine Well woman exam with routine gynecological exam Ordered: 11/02/2024 [facility] Comment on above: Ordered: 11/02/2024 Immunizations Immunization Date Immunization Notes Care Provider Katie coronel 07-09-2017 influenza virus vacc ine, unspecified formulation Joseline COLLADO Work Phone: [facility] Payers Date Payer Category Payer Self-pay [id number] 2022 Medicaid (Managed Care) [employer] [id number] 1970 Unknown [id number] [id number]. 593 1970 Unknown [id number] [id number]. 593 1970 Unknown [id number] [id number]. 593 1970 Unknown [id number] [id number]. 593 1970 Unknown [id number] 2.16.840.1.251476.3.579.2. 1259 1970 Unknown [id number] 2.16.840.1.826248.3.579.2. 1259 1970 Unknown [id number] 2.16.840.1.592772.3.579.2. 1259 1972 Unknown [id number] 2.16.840.1.882211.3.579.2. 1259 1970 Unknown [id number] 2.16.840.1.026099.3.579.2. 1259 1959 Unknown [id number] Unknown [id number] [id number]. 531 Social History Date Type Detail Facility Start: 04-01-2023 [facility] History of tobacco use Cigarette Smoker [facility] Start: 06-23-2023 End: 05-10-2025 Alcoholic beverage intake Current drinker of alcohol (finding) [facility] Start: 06-23-2023 End: 05-25-2025 History of Social function [facility] Start: 06-23-2023 End: 05-25-2025 Tobacco use panel [facility] Start: 04-01-2023 Tobacco Comment Patient smokes 5 or less cigarettes/dayThinking about quitting. [facility] Start: 04-01-2023 Alcohol Comment Alcohol: 1 or 2 drinks on typical day/monthly or less. Caffeine: 1-2 cups/day [facility] Start: 1970 Sex assigned at Not on file [facility] Tobacco smoking stat [facility] Unknown if ever smoked [facility] Work Phone: Start: 11-04-2024 Sex Female (finding) [facility] Start: 1970 Sex Assigned At Female F [facility] Start: 05-10-2025 End: 05-25-2025 Tobacco smoking status [facility] Ex-smoker [facility] History of tobacco use Current smoker [facility] Start: 05-10-2025 Tobacco Comment Patient smokes 5 or less cigarettes/dayThinking about quitting. Patient quit 14 years ago [facility] Start: 05-25-2025 Tobacco use and exposure Smokeless tobacco non-user [facility] Start: 05-25-2025 Alcoholic beverage intake Ex-drinker (finding) [facility] History of Present illness Narrative 05-25-2025 Pascual Do, DPM - 05/25/2025 8:45 AM EDT Note Date & Type Note Facility 05-25-2025 History of Presen t illness Narrative Images from the original note were not included. Subjective Patient ID: Amie Verma is a 54 y.o. female who presents for FUV (Amie Verma is a 54 y.o. female who presents for FUV Left Toes Pain. States no change. Prednisone helped, however patient gained 10 lbs. Patient relates she stubbed the toes again.Patient relates she is leaving on vacation 06/19-07/21 [facility]. SS 8.5). 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 Patient reports about 70% transient relief or improvement with the initial prednisone taper; followed by gradual return of symptomatology; and again notably aggravated following a mild stubbing incident with several days remaining on the taper. Denies swelling, discoloration or deformity. Symptoms are described as sharp intermittent stabbing pain, with dysesthesias. Reports favorable relief and comfort with metatarsal padding. Relates a 10 lb weight gain while on prednisone. Right foot remains symptom free. Medications Current Outpatient Medications: Dexilant [address] capsule, Take 1 capsule by mouth in the morning., Disp: , Rfl: predniSONE (Deltasone) 10 MG tablet, 1 tablet twice daily x 7 days; followed by 1 tablet daily as directed until complete, Disp: 21 tablet, Rfl: 0 Allergies Patient has no known allergies. Past Surgical History Past Surgical History: Procedure Laterality Date SECTION, LOW TRANSVERSE 2012 Family History Family History Problem Relation Name Age of Onset Diabetes Mother Richelle Patel Hypertension Mother Richelle Patel Heart disease Mother Richelle Patel Diabetes Father Sage Verma Hypertension Father Sage Verma Heart disease Father Sage Verma Objective General assessment: Alert and oriented. Pleasant disposition. Wearing Prado athletic footwear. Vascular: DP 2/4 bilateral. PT 2/4 bilateral. CFT brisk all digits. Gradient temperature: Warm-warm bilateral. Unremarkable for ankle edema. Neurologic: Tactile and light touch sensation intact. Negative Tinel's along the tarsal canal. No focal motor or sensory deficits are noted. Dermatologic: Skin turgor is good. Web space areas are clean, dry, non-inflamed. Unremarkable for eczema or dermatitis. Orthopedic: Range of motion: Functional ankle, subtalar and 1st MTP joint range of motion. Lesion pattern: No forefoot or digital discrete keratotic lesions are noted. Focused exam left foot: Sharp 2nd IS tenderness, with positive Antony's click and associated Tinel sign, reproducing symptomatology. 3rd IS tenderness somewhat less intense or sharp, without distinct Antony's click. Adjacent MTP joints minimally tender. Metatarsal shafts non-tender. Unremarkable for swelling, warmth or discoloration otherwise. Central digits are in rectus position. Radiology: RADIOGRAPHS: 3 views left foot: Weight-bearing: DP, oblique, lateral: 05/10/2025: Unremarkable for acute osseous or joint pathology. Unremarkable for fracture or stress fracture changes. Central MTP joints intact without DJD or AVN. Metatarsal parabola acceptable. Digits are in rectus position. 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 Status post stubbing injury about 4 weeks previous. Plan: Review of clinical and x-ray findings, differential diagnosis, etiology and contributing/aggravating factors, response to date, treatment strategy, rationale and objectives. Left foot: Aseptic technique: Elective corticosteroid injection 2nd IS as described. Patient noted effective relief of symptoms upon leaving the clinic. Encourage compliance with Prado footwear and modified insole. Scheduled trip to [facility], leaving 06/19/2025. Procedure: LEFT FOOT: Elective corticosteroid injection 2nd IS: Infiltrating xylocaine with 0.3 cc Kenalog 40; inferior to the DTIL; eliciting a Tinel's-like response (2.5 cc total volume). Well tolerated. This note was created with the assistance of a speech recognition program. While intending to generate a timely document that accurately reflects the content of the visit, no guarantee can be provided that every grammatical or spelling mistake has been or will be identified or corrected. Thank you for your understanding. Pascual Do DPM documented in this encounter [facility] Instructions 05-25-2025 Patient Instructions Note Date & Type Note Facility 05-25-2025 Instructions Pascual Do DPM - 05/25/2025 8:45 AM EDT As noted documented in this encounter [facility] History of Present illness Narrative 05-10-2025 Pascual Do DPM - 05/10/2025 1:45 PM EDT Note Date & Type Note Facility 05-10-2025 History of Presen t illness Narrative Images from the original note were not included. Subjective Patient ID: Amie Verma is a 54 y.o. female who presents for Toe Pain (Amie Verma 54yo New Patient presents with referral from Dr. Fink for toe pain. Patient relates 02/2025 she bumped her toes on the couch, 1 month later had xrays at [facility] 04/07/2025, no fractures at that time. Left 2,3,4 toes, pain comes and goes. Patient typically walks 1-3 miles daily, wearing Prado. SS 8.5). HPI Initial patient encounter and assessment. Chief complaint: Persistent pain of the left forefoot and digits. Symptoms subsequent to stubbing injury against the edge of a couch some 4 weeks previous. Patient barefoot at the time of the injury incident. Noted immediate swelling and bruising, with inability to comfortably bear weight. She noted no obvious deformity. Denies prodromal symptoms. Initial assessment by PCP; radiographs unremarkable for fracture. Describes fairly persistent metatarsalgia-like symptoms with intermittent radiating dysesthesias involving the central digits. Ecchymosis has effectively resolved. There has been subtotal resolution of the swelling. Symptoms notably aggravated with physical and/or walking activity; generally relief with relative rest and/or activity modification. OTC ibuprofen has provided little or no relief. Right foot is symptom free. Medications Current Outpatient Medications: Dexilant [address] capsule, Take 1 capsule by mouth in the morning., Disp: , Rfl: Allergies Patient has no known allergies. Past Surgical History Past Surgical History: Procedure Laterality Date SECTION, LOW TRANSVERSE 2013 Family History Family History Problem Relation Name Age of Onset Diabetes Mother Richelle Patel Hypertension Mother Richelle Patel Heart disease Mother Richelle Patel Diabetes Father Sage Verma Hypertension Father Sage Verma Heart disease Father Sage Verma Objective General assessment: Alert and oriented. Pleasant disposition. Wearing Prado athletic footwear. Vascular: DP 2/4 bilateral. PT 2/4 bilateral. CFT brisk all digits. Gradient temperature: Warm-warm bilateral. Unremarkable for ankle edema. Neurologic: Tactile and light touch sensation intact. Negative Tinel's along the tarsal canal. No focal motor or sensory deficits are noted. Dermatologic: Skin turgor is good. Web space areas are clean, dry, non-inflamed. Unremarkable for eczema or dermatitis. Orthopedic: Range of motion: Functional ankle, subtalar and 1st MTP joint range of motion. Lesion pattern: No forefoot or digital discrete keratotic lesions are noted. Focused exam left foot: Mild diffuse forefoot swelling, without erythema, warmth or ecchymosis. Central digits are in rectus position without palpable tenderness. Moderate-sharp 2nd and 3rd IS tenderness, with positive Antony's click and associated Tinel sign, reproducing symptomatology. By contrast areas minimal tenderness through the central MTP joints. Metatarsal shafts non-tender. Radiology: RADIOGRAPHS: 3 views left foot: Weight-bearing: DP, oblique, lateral: 05/10/2025: Unremarkable for acute osseous or joint pathology. Unremarkable for fracture or stress fracture changes. Central MTP joints intact without DJD or AVN. Metatarsal parabola acceptable. Digits are in rectus position. 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 Status post stubbing injury about 4 weeks previous. Plan: Review of clinical and x-ray findings, differential diagnosis, etiology and contributing/aggravating factors, treatment strategy, rationale and objectives. Rx: Prednisone taper dose. Central metatarsal pad modification left Prado insole. Patient noted favorable padding position and comfort upon leaving the clinic. Procedure: This note was created with the assistance of a speech recognition program. While intending to generate a timely document that accurately reflects the content of the visit, no guarantee can be provided that every grammatical or spelling mistake has been or will be identified or corrected. Thank you for your understanding. Pascual Do DPM documented in this encounter [facility] History of Present illness Narrative 11-16-2024 HEAVEN [...] nursing note reviewed. Exam conducted with a housekeeping laundry worker present. Vitals: Estimated body mass index is [...] Ortiz documented in this encounter [facility] Evaluation note Note Date & Type Note Facility Evaluation note Diagnosis Well woman exam with routine gynecological exam Routine gynecological examination Breast cancer screening by mammogram Osteoporosis, post-menopausal (CMS/HCC) Senile osteoporosis documented in this encounter [facility] Evaluation note Note Date & Type Note Facility Evaluation note [facility]: Evaluation note Note Date & Type Note Facility Evaluation note Diagnosis Postop check Follow-up examination, following unspecified surgery documented in this encounter [facility] Evaluation note Note Date & Type Note Facility Evaluation note Diagnosis Dunaway's neuroma of left foot- Primary Pain in unspecified foot Peripheral neuritis of left foot Capsulitis of metatarsophalangeal (MTP) joint of left foot Difficulty walking Difficulty in walking documented in this encounter [facility] Evaluation note Note Date & Type Note Facility Evaluation note Diagnosis Dunaway's neuroma of left foot- Primary Peripheral neuritis of left foot Pain in left foot Pain in soft tissues of limb Difficulty walking Difficulty in walking documented in this encounter [facility] Healthcare Summary Purpose Family History No Family [...] content) DATE CREATED AUTHOR 09/13/2022 [facility] pital DATE CREATED AUTHOR AUTHOR'S ORGANIZ ATION 11/14/2024 [facility] DATE CREATED AUTHOR AUTHOR'S ORGANIZ ATION 05/27/2025 [facility] EPIC Care Teams (unrecognized sec tion and content) Temporary Staff Accountant Relationship Specialty Start Date End Date Ilan Fink MD [address] [place] [address] PCP - General 04/01/23 Temporary Staff Accountant Relationship Specialty Start Date End Date Ilan Fink MD [address] [place] [address] PCP - General 04/01/23 Team Status: Active Member Role Status Dates Ilan Fink MD Primary Care Provider Active Team Status: Inactive Member Role Status Dates Joaquín Neff DO Attending Provider Active Start : November 02, 2024 End: November 02, 2024 Ilan Fink MD Primary Care Provider Active Start: November 02, 2024 End: November 02, 2024 Temporary Staff Accountant Relationship Specialty Start Date End Date Ilan Fink MD [address] [place] [facility] [address] PCP - General 04/01/23 Temporary Staff Accountant Relationship Specialty Start Date End Date Ilan Fink MD [address] [place] [facility] [address] PCP - General 04/01/23 Temporary Staff Accountant Relationship Specialty Start Date End Date Ilan Fink MD [address] [place] [facility] [address] PCP - General 04/01/23 Temporary Staff Accountant Relationship Specialty Start Date End Date Ilan Fink MD [address] [place] [facility] [address] PCP - General 04/01/23 Temporary Staff Accountant Relationship Specialty Start Date End Date Ilan Fink MD [address] [facility] [address] PCP - General 04/01/23 Temporary Staff Accountant Relationship Specialty Start Date End Date Ilan Fink MD [address] [place] [facility] [address] PCP - General 04/01/23 Temporary Staff Accountant Relationship Specialty Start Date End Date Ilan Fink MD [address] [place] [address] PCP - General 04/01/23 Reason for Visit (unrecogniz ed section and content) Reason Comments Gynecologic Exam Reason Comments Suture / Staple Removal Reason Comments Toe Pain Amie Verma 54yo New Patient presents with referral from Dr. Fink for toe pain. Patient relates 02/2025 she bumped her toes on the couch, 1 month later had xrays at [facility] 04/07/2025, no fractures at that time. Left 2,3,4 toes, pain comes and goes. Patient typically walks 1-3 miles daily, wearing Prado. SS 8.5 Specialty Diagnoses / Procedures Referred By Marko don Referred To Contact Podiatry Diagnoses Pain in unspecified foot Procedures CA OFFICE/OUTPATIENT NEW HIGH MDM 60 MINUTES Ilan Fink MD [address] [place] [address] Phone: tel: fax: [facility] [address] [place] [address] Phone: tel: fax: Referral ID Status Reason Start Date Expiration Date V isits Requested Visits Authorized [id number] Closed Specialty Services Required 04/12/2025 07/13/2025 1 1 Reason Comments FUV Amie Verma is a 54 y.o. female who presents for FUV Left Toes Pain. States no change. Prednisone helped, however patient gained 10 lbs. Patient relates she stubbed the toes again, about 4 days ago. Patient relates she is leaving on vacation 06/19-07/21 [facility]. SS 8.5 Goals (unrecognized section and content) Goals may [...] BE BASED ON THE PRIMARY CLINICAL RECORDS. [facility]. provides no warranty or guarantee of the accuracy or completeness of information in this document.
--- NOTE | 2025-07-01 14:22 | XR_ITS ---
The [place] [id number] Patient Name: AMIE VERMA MRN: [id number] date: 1970 Sex: F Assigned Patient Location: ED.MAIN Current Patient Location: ED.MAIN Accession/Order Number: [id number] Exam Date: 07/01/2025 14:45 Report Date: 07/01/2025 15:38 At the request of: JONA DENNY MD Procedure: XR foot LT min 3V LEFT FOOT - 3 views CLINICAL HISTORY: fall COMPARISON: 04/07/2025 FINDINGS: Trimalleolar ankle fracture. Forefoot soft tissue swelling. Questionable nondisplaced lucency involving the cuboid. XR/XR foot LT min 3V IMPRESSION: Questionable fracture lucency involving the cuboid, nondisplaced. Please correlate with point tenderness. Redemonstration of the ankle fracture. Impression dictated by: Kingston Mccrary M.D. 07/01/2025 3:38 PM Dictation Location: [place] [address] Electronically authenticated by: [id number] Y Date: 07/01/2025 15:38
--- NOTE | 2025-07-01 14:22 | XR_ITS ---
The [place] [id number] Patient Name: AMIE VERMA MRN: [id number] date: 1970 Sex: F Assigned Patient Location: ED.MAIN Current Patient Location: ED.MAIN Accession/Order Number: [id number] Exam Date: 07/01/2025 14:45 Report Date: 07/01/2025 15:36 At the request of: JONA DENNY MD Procedure: XR ankle LT min 3V 3 views left ankle CLINICAL HISTORY: fall COMPARISON: None FINDINGS: Trimalleolar ankle fracture. Slight widening of the medial interval 6 mm. Talar dome appears grossly unremarkable. XR/XR ankle LT min 3V IMPRESSION: TRIMALLEOLAR ANKLE FRACTURE. WIDENING OF THE MEDIAL INTERVAL 6 MM WORRISOME FOR INSTABILITY. Impression dictated by: Kingston Mccrary M.D. 07/01/2025 3:36 PM Dictation Location: [place] [address] Electronically authenticated by: [id number] Y Date: 07/01/2025 15:36
--- NOTE | 2025-07-01 14:22 | XR_ITS ---
The [address] [address] Patient Name: AMIE VERMA MRN: [id number] date: 1970 Sex: F Assigned Patient Location: ED.MAIN Current Patient Location: ED.MAIN Accession/Order Number: [id number] Exam Date: 07/01/2025 14:45 Report Date: 07/01/2025 15:39 At the request of: JONA DENNY MD Procedure: XR tibia fibula LT 2V LEFT TIBIA AND FIBULA - - 2 views CLINICAL HISTORY: fall COMPARISON: None FINDINGS: Trimalleolar ankle fracture involving the distal tibia and fibula. Remainder of the tibia and fibula otherwise intact. The knee appears grossly intact. IMPRESSION: Trimalleolar ankle fracture. No Additional tibia-fibula fractures identified. Impression dictated by: Kingston Mccrary M.D. 07/01/2025 3:39 PM Dictation Location: [place] [address] Electronically authenticated by: [id number] Y Date: 07/01/2025 15:39
--- NOTE | 2025-07-01 14:24 | ED.GENADUL1 ---
HPI HPI - General Adult General Chief complaint: Extremity Injury, Lower Stated complaint: FOOT PAIN Time Seen by Provider: 07/01/25 14:19 History of Present Illness HPI narrative: 54-year-old female presents for pain and swelling in her left foot ankle and lower leg. She states she was in [place] 3 days ago and she fell and twisted her leg. She went to a medical facility and was told she had a fracture. She has had pain and swelling since then. She contacted her PCP who arranged follow-up with an orthopedist. The pain is moderate. Related Data Home Medications ?Medication ?Instructions ?Recorded ?Confirmed dexlansoprazole 60 mg 60 mg PO DAILY 09/10/23 07/01/25 capsule,biphase delayed release (Dexilant) aspirin 81 mg tablet,delayed 81 mg PO BID 07/01/25 07/01/25 release (Adult Aspirin Regimen) Previous Rx's ?Medication ?Instructions ?Recorded oxycodone-acetaminophen 5 mg-325 1 tab PO Q6H PRN pain 5 days #20 07/01/25 mg tablet (Percocet) tabs Allergies Allergy/AdvReac Type Severity Reaction Status Date / Time No Known Drug Allergies Allergy Verified 07/01/25 14:16 Opioid HPI Opioid Management Most Recent Opioid Data: Last Pain Scale 10 Today, 14:20 Review of Systems ROS Narrative A ten point review of systems is negative except as noted above. PFSH PFSH Social History Little interest or pleasure in doing things: not at all Feeling down, depressed, or hopeless: not at all Exam Narrative Exam Narrative: Nurses note and vital signs reviewed and patient is not hypoxic. General:The patient appears well and in no apparent distress.Patient is resting comfortably on cart. Skin:Warm, dry, no pallor noted.There is no rash noted. Head:Normocephalic, atraumatic Eye: Normal conjunctiva, no drainage Ears, Nose, Mouth, and Throat: oral mucosa is moist. Nares patent. Cardiovascular:Regular Rate and Rhythm Respiratory:Patient is in no distress, no accessory muscle use, lungs are clear to auscultation, no wheezing, rales or rhonchi Back:non-tender GI: Soft and nontender Musculoskeletal: She has significant bruising and swelling in the left foot and left ankle and the bruising extends alf from her ankle to her knee. There is an abrasion just above the ankle as well. Neurological:A&O, normal speech Psychiatric:Cooperative Constitutional Vital Signs, click to edit/add: Last Vital Signs Temp 98.1 F 07/01/25 14:17 Pulse 70 07/01/25 17:50 Resp 20 07/01/25 17:50 BP 134/73 07/01/25 17:50 Pulse Ox 97 07/01/25 17:50 O2 Del Method Room Air 07/01/25 14:17 Course Vital Signs Vital signs: Vital Signs Temperature 98.1 F 07/01/25 14:17 Pulse Rate 91 H 07/01/25 14:17 Respiratory Rate 20 07/01/25 14:17 Blood Pressure 161/72 H 07/01/25 14:17 Pulse Oximetry 99 07/01/25 14:17 Oxygen Delivery Method Room Air 07/01/25 14:17 Temperature 98.1 F 07/01/25 14:17 Pulse Rate 70 07/01/25 17:50 Respiratory Rate 20 07/01/25 17:50 Blood Pressure 134/73 07/01/25 17:50 Pulse Oximetry 97 07/01/25 17:50 Oxygen Delivery Method Room Air 07/01/25 14:17 Medical Decision Making MDM Narrative Medical decision making narrative: The patient has a left trimalleolar fracture as well as a left nondisplaced cuboid fracture. Additionally she has a right talus avulsion fracture. Left leg splint applied, application checked by me and found to be appropriate, she is neurovascularly intact. Fermin wrap applied to the right foot area as well and application checked by me and found to be appropriate, she is neurovascular intact. She was offered crutches but does not want to use them and has a knee scooter that she has at home that she can utilize. She was advised nonweightbearing on the left foot. She has an orthopedic appointment in 3 days and she will keep that appointment and she was prescribed Percocet and given Percocet here. Doppler was negative. Treatment diagnosis and follow-up were discussed with the patient. Differential Diagnosis Differential Diagnosis: Fracture, sprain, DVT Imaging Data Left ankle, left foot: Radiologist's impression: ITS Impressions Ankle X-Ray 07/01/25 14:22 IMPRESSION: TRIMALLEOLAR ANKLE FRACTURE. WIDENING OF THE MEDIAL INTERVAL 6 MM WORRISOME FOR INSTABILITY. Impression dictated by: Kingston Mccrary M.D. 07/01/2025 3:36 PM Dictation Location: [facility] Electronically authenticated by: [id number] Y Date: 07/01/2025 15:36 Foot X-Ray 07/01/25 14:22 IMPRESSION: Questionable fracture lucency involving the cuboid, nondisplaced. Please correlate with point tenderness. Redemonstration of the ankle fracture. Impression dictated by: Kingston Mccrary M.D. 07/01/2025 3:38 PM Dictation Location: [facility] Electronically authenticated by: [id number] Y Date: 07/01/2025 15:38 Ankle X-Ray 07/01/25 16:45 IMPRESSION: NO ACUTE OSSEOUS FINDINGS. Impression dictated by: Kingston Mccrary M.D. 07/01/2025 5:48 PM Dictation Location: [facility] Electronically authenticated by: [id number] Y Date: 07/01/2025 17:48 Foot X-Ray 07/01/25 16:45 IMPRESSION: LUCENCY INVOLVING THE ANTERIOR NECK OF THE TALUS NOTED, PLEASE CORRELATE POINT TENDERNESS, QUESTION TINY NONDISPLACED OSSEOUS AVULSION FRACTURE. OTHERWISE, NEGATIVE FOR ACUTE DISPLACED FRACTURE. Impression dictated by: Kingston Mccrary M.D. 07/01/2025 5:49 PM Dictation Location: [facility] Electronically authenticated by: [id number] Y Date: 07/01/2025 17:49 Discharge Plan Discharge Chief Complaint: Extremity Injury, Lower Clinical Impression: Closed displaced trimalleolar fracture of left ankle, Avulsion fracture of right talus, Closed fracture of cuboid of left foot Patient Disposition: Home, Self-Care Time of Disposition Decision: 15:26 Condition: Good Mode of Transportation: Private Vehicle Prescriptions / Home Meds: New oxycodone-acetaminophen [Percocet] 5-325 mg tablet 1 tab PO Q6H PRN (Reason: pain) 5 Days Qty: 20 0RF No Action dexlansoprazole [Dexilant] 60 mg capsule,biphase delayed releas 60 mg PO DAILY aspirin [Adult Aspirin Regimen] 81 mg tablet,delayed release (DR/EC) 81 mg PO BID Print Language: Czech Instructions: Ankle Fracture (ED) Additional Instructions: See your orthopedist at your appointment on Thursday. Use your knee scooter that you have. Do not bear weight with left foot. Referrals: Adán Fink MD [Primary Care Provider, Family Practice] - 1 week
[2025-07-01] MEDS: OXYCODONE HCL/ACETAMINOPHEN 5MG/325MG 2 TAB PO (16:07)
[2025-07-01] MEDS: BACITRACIN 0.9 GM PACKET 1 PACKET TOPICAL (16:08)
--- NOTE | 2025-07-01 16:45 | XR_ITS ---
The [address] [address] Patient Name: AMIE VERMA MRN: [id number] date: 1970 Sex: F Assigned Patient Location: ER Current Patient Location: ER Accession/Order Number: [id number] Exam Date: 07/01/2025 16:50 Report Date: 07/01/2025 17:49 At the request of: JONA DENNY MD Procedure: XR foot RT min 3V Right FOOT - 3 views CLINICAL HISTORY: fall COMPARISON: None FINDINGS: No definite acute displaced fracture or dislocation.. Lucency involving the anterior neck of talus noted, please correlate with point tenderness could represent tiny avulsion fracture fragment. XR/XR foot RT min 3V IMPRESSION: LUCENCY INVOLVING THE ANTERIOR NECK OF THE TALUS NOTED, PLEASE CORRELATE POINT TENDERNESS, QUESTION TINY NONDISPLACED OSSEOUS AVULSION FRACTURE. OTHERWISE, NEGATIVE FOR ACUTE DISPLACED FRACTURE. Impression dictated by: Kingston Mccrary M.D. 07/01/2025 5:49 PM Dictation Location: [place] [address] Electronically authenticated by: [id number] Y Date: 07/01/2025 17:49
--- NOTE | 2025-07-01 16:45 | XR_ITS ---
The [address] [address] Patient Name: AMIE VERMA MRN: [id number] date: 1970 Sex: F Assigned Patient Location: ER Current Patient Location: ER Accession/Order Number: [id number] Exam Date: 07/01/2025 16:50 Report Date: 07/01/2025 17:48 At the request of: JONA DENNY MD Procedure: XR ankle RT min 3V Right ankle, 3 views CLINICAL HISTORY: fall COMPARISON: None FINDINGS: Negative acute fracture or dislocation. Minimal soft tissue swelling overlying the lateral malleolus and anterior ankle.. XR/XR ankle RT min 3V IMPRESSION: NO ACUTE OSSEOUS FINDINGS. Impression dictated by: Kingston Mccrary M.D. 07/01/2025 5:48 PM Dictation Location: [place] [address] Electronically authenticated by: [id number] Y Date: 07/01/2025 17:48
[2025-07-01 17:50] VITALS: BP 134/73; PULSE 70; O2SAT 97
== END 2025-07-01 18:24 | disposition home or self-care (01) ==
PROVIDERS: Emergency Provider Emergency Medicine; PCP Family Medicine
DX: S82.852A Displaced trimalleolar fracture of left lower leg, initial encounter for closed fracture (principal); S92.215A Nondisplaced fracture of cuboid bone of left foot, initial encounter for closed fracture; S92.151A Displaced avulsion fracture (chip fracture) of right talus, initial encounter for closed fracture; W18.39XA Other fall on same level, initial encounter; X50.1XXA Overexertion from prolonged static or awkward postures, initial encounter
CPT/HCPCS: 29515; 73590; 73610; 73630; 93971; 99284

== ENCOUNTER 2025-07-02 03:24 | Emergency (ER) | payer OTHER, SELFPAY ==
[2025-07-02 03:28] VITALS: BP 172/74; PULSE 100; TEMP 36.7; O2SAT 99; BMI 26.6
--- OUTSIDE RECORDS SUMMARY | 2025-07-02 03:30 | XMS_ITS | CCD ---
Author Organization [facility] Care Team Providers Care Backside Grinder Name Role Phone JAROCHO, DR TALAVERA Admitting [...] Unavailable Ilan Fink MD Primary Care Provider [phone] Joaquín Neff DO Attending Provider [phone] Ilan Fink MD Primary Care Provider [phone] Ilan Fink Primary Care Unavailable Joaquín Neff Attending Unavailable Joaquín Neff Admitting Unavailable Ilan Fink MD Primary Care Provider [phone] JOSELINE GARCIA Attending Unavailable JOSELINE GARCIA Attending [...] parabola acceptable. Digits are in rectus position. [facility] Radiology Study observation (narrative) [facility] IGP,APTIMA HPV,AGE GDLNon AGE GDLN ACOG TESTING Note . [facility] Comment on above: TESTS RESULT FLAG UN ITS REF RANGE LAB Clinician Provided Cytology Information Source.............Cervix;Endocervix No. of containers..01 ThinPrep Vial Age Algo ACOG [place]... FLAG LEGEND: L-Low Normal,H-High Normal,LL-Alert Low,HH-Alert High <-Panic Low,>-Panic High,A-Abnormal,AA-Critical Abnormal Performed at: 01 =G [address] [address] Bee Michelle MD, HPV APTIMA Negative Negative [facility] Comment on above: This nucleic acid am plification test detects fourteen high- risk HPV types (16,18,31,33,35,39,45,51,52,56,58,59,66,68) without differentiation. Performed at: =[address] [id number] Passenger Flagman: Bee Michelle MD, Phone: [phone] Performed at: [address] [id number] Passenger Flagman: Bee Michelle MD, Phone: [phone] IGP, APTIMA HPV, RFX 16/18,45 Note . [facility] Comment on above: TESTS RESULT FLAG UN ITS REF RANGE LAB DIAGNOSIS: 02 NEGATIVE FOR INTRAEPITHELIAL LESION OR MALIGNANCY. Specimen adequacy: 02 Satisfactory for evaluation. Endocervical and/or squamous metaplastic cells (endocervical component) are present. Performed by: 02 Jeannie Monroy Manufacturing Specialist ([facility]) . 02 Note: Note 02 The Pap [...] High,A-Abnormal,AA-Critical Abnormal Performed at: 02 WB [facility] [address] [address] Bee Michelle MD, BRUSH-SPATULA CERVIX [facility] MM TOMOSYNTHESIS SCREENING B Ion 11-04-[address] [address] Mammography Report Signed Patient: AMIE VERMA MR#: [id number] : 1970 Acct:[id number] Age/Sex: 54 / F ADM Date: 11/02/24 Loc: MAMMO Attending Dr: Joaquín Neff D.O. Ordering Physician: Joaquín Neff D.O. Results: Date of Service: 11/02/24 Follow Up: Procedure(s): MM tomosynthesis screening BI Accession Number(s): [id number] cc: Joaquín Neff D.O.; Ilan Fink M.D. Patient Name: AMIE VERMA MR#: [id number] : 1970 Exam Date: 11/02/2024 Ordering Doctor: [...] Treatments None Family Cancers None LOCATION: [facility] BREAST COMPOSITION: There are scattered areas [...] Signed By: 11/04/24 1054 DD/ 1053 TD/TT: Cello Teacher: [facility] Radiology, Radiologist, - 11/04/2024 [place] [address] Mammography Report Signed Patient: AMIE VERMA MR#: [id number] : 1970 Acct:[id number] Age/Sex: 54 / F ADM Date: 11/02/24 Loc: MAMMO Attending Dr: Joaquín Neff D.O. Ordering Physician: Joaquín Neff D.O. Results: Date of Service: 11/02/24 Follow Up: Procedure(s): MM tomosynthesis screening BI Accession Number(s): [id number] cc: Joaquín Neff D.O.; Ilan Fink M.D. Patient Name: AMIE VERMA MR#: [id number] : 1970 Exam Date: 11/02/2024 Ordering Doctor: [...] Treatments None Family Cancers None LOCATION: [facility] BREAST COMPOSITION: There are scattered areas [...] Signed By: 11/04/24 1054 DD/ 1053 TD/TT: Cello Teacher: [facility] Radiology Study observation (narrative) [facility] MM TOMOSYNTHESIS SCREENING B IOrdered By: Radiologist Radiology on 11-04-2024 [facility] [employer] Work Phone: Marico 11-02-2024 L - -------- Specimen: [id number] Received: 11/03/24 Status: MARY ANNE Stiles Num: [id number] Spec Type: Surgical Subm Dr: Joaquín Neff Tissues: A Skin-Other than Cyst, tag, debridement or plastic repair (LEFT SHOULDER) Procedures: Marty HERRERA/Asia Hitchcock -------- Age/ Patient Sex Location Account Attending Physician -------- Amie Verma 54/F CHANTEL [id number] Joaquín Neff -------- SPEC NUM: [id number] RECD: 11/03/24 STATUS: MARY ANNE STILES NUM: [id number] SUKHI: 11/02/24- [facility] DR: Joaquín Neff ENTERED: 11/03/[address] [facility] [address]: SPEC TYPE: Surgical DEPT: S ENTERED BY: [id number] RECV BY: [id number] ORDERED: HE, Gross/Micro L4 ORDERED: HE, Gross/Micro [...] intact in a single cassette. (1, ns, [id number] A) Microscopic Description Microscopic examination is performed. -------- Specimen: [id number] Received: 11/03/24 Status: MARY ANNE Vierarandy Num: [id number] Spec Type: Surgical Subm Dr: Joaquín Neff Tissues: A Skin-Other than Cyst, tag, debridement or plastic repair (LEFT SHOULDER) Procedures: SHARON Gross/Micro L4 -------- Patient: Amie Verma [id number] (Continued) -------- Specimen: [id number] Received: 11/03/24 (Continued) Signed (signature on file) William Campbell MD 11/04/24 1447 -------- Specimen: [id number] Received: 11/03/24 Status: MARY ANNE Stiles Num: [id number] Spec Type: Surgical Subm Dr: Joaquín Neff Tissues: A Skin-Other than Cyst, tag, debridement or plastic repair (LEFT SHOULDER) Procedures: Marty HERRERA/Asia Hitchcock -------- Patient: Abhishek Vermaia [id number] (Continued) -------- Specimen: [id number] Received: 11/03/24 (Continued) CPT Codes 59431 -------- -------- Specimen: [id number] Received: 11/03/24 Status: MARY ANNE Linsey Num: [id number] Spec Type: Surgical Subm Dr: Joaquín Neff Tissues: A Skin-Other than Cyst, tag, debridement or plastic repair (LEFT SHOULDER) Procedures: Marty HERRERA/Asia Hitchcock -------- Patient: Amie Verma [id number] (Continued) -------- Signed (signature on file) William Campbell MD 11/04/24 1447 Normal [facility] MG MAMM SCREEN 3D GEE CADon 09-02-2022 MG MAMM SCREEN 3D GEE CAD Patient: AMIE VERMA Exam Date: 09/02/2022 : 1970 Gender:F Ordering : DR CATHY PAL . Admission #: [id number] Family : Order #: [id number] CLICK HERE TO VIEW EXAM RADIOLOGY REPORT [...] Treatments None Family Cancers None LOCATION: [facility] BREAST COMPOSITION: Scattered areas fibroglandular density. [...] Hammond M.D. on 09/02/2022 at 15:07 Normal [facility] PAP ACOG PANEL 2: 30 to 65on 06-11-2022 . . Normal [facility] Comment on above: Result Comment: Perf ormed at: WB Performed By: #### [id number] #### [facility] [address] [address] [address] Art Gold Age Gdln ACOG Testing 30-65 Normal [facility] Comment on above: Performed By: #### [id number] #### [facility] [address] [place] [address] Dr. Art Gold DIAGNOSIS: Comment Normal [facility] Comment on above: Result Comment: NEGA TIVE FOR INTRAEPITHELIAL LESION OR MALIGNANCY. Performed at: WB Performed By: #### 4 [id number] #### [facility] [address] [place] [address] Dr. Art Gold HPV Aptima Negative Normal Negative [facility] Comment on above: Result Comment: This nucleic acid amplification test detects fourteen high-risk HPV types (16,18,31,33,35,39,45,51,52,56,58,59,66,68) without differentiation. Performed at: =G Performed By: #### 4 [id number] #### [facility] [address] [place] [address] Dr. Art Gold Methodology: Comment Normal [facility] Comment on above: Result Comment: This liquid based ThinPrep(R) pap test was screened with the use of an image guided system. Performed at: WB Performed By: #### 4 [id number] #### [facility] [address] [place] [address] Dr. Art Gold Note: Comment Normal [facility] Comment on above: Result Comment: The Pap smear is a screening test designed to aid in the detection of premalignant and malignant conditions of the uterine cervix. It is not a diagnostic procedure and should not be used as the sole means of detecting cervical cancer. Both false-positive and false-negative reports do occur. . Performed at: WB Performed By: #### 4 [id number] #### [facility] [address] [place] [address] Dr. Art Gold Performed by: Comment Normal [facility] Comment on above: Result Comment: Shannon Hansen, Manufacturing Specialist (ASCP) Performed at: WB Performed By: #### 4 [id number] #### [facility] [address] [place] [address] Dr. Art Gold Specimen adequacy: Comment Normal [facility] Comment on above: Result Comment: Sati sfactory for evaluation. Endocervical and/or squamous metaplastic cells (endocervical component) are present. Performed at: WB Performed By: #### 4 [id number] #### [facility] [address] [place] [address] Dr. Art Gold Covid-19 PCR (CVDTB)on SARS-CoV-2 (COVID-19) RNA TRISTEN+probe Ql (Unsp spec) Not detected Normal NOT DETECTED [facility] Comment on above: Result Comment: This test is not yet approved or cleared by the [place] FDA. When there are no FDA-approved or cleared tests available, and other criteria are met, FDA can make tests available under an emergency access mechanism called an Emergency Use Authorization (EUA). The EUA for this test is supported by the [place] of Health and Human Service's (HHS's) declaration [...] SARS-CoV-2. Performed By: #### C VDTB #### [facility] [address] [place] [address] Dr. Art Gold Covid-19 PCR (CVDTB)on SARS-CoV-2 (COVID-19) RNA TRISTEN+probe Ql (Unsp spec) Detected Critically abnormal NOT DETECTED [facility] Comment on above: Result Comment: This test is not yet approved or cleared by the [place] FDA. When there are no FDA-approved or cleared tests available, and other criteria are met, FDA can make tests available under an emergency access mechanism called an Emergency Use Authorization (EUA). The EUA for this test is supported by the [place] of Health and Human Service's (HHS's) declaration [...] longer be used). Performed By: #### C [facility] #### [facility] [address] [place] [address] Dr. Art Gold Vital Signs Date Time Vital Sign Value Performing Clinician Faci lity 05-25-2025 09:01-0400 Body height 162.6 cm Pascual Hi DPM Work Phone: [facility] 05-25-2025 09:01-0400 Body mass index (BMI) [Ratio] 31.76 kg/m2 Pascual Do DPM Work Phone: [facility] 05-25-2025 09:01-0400 Body weight 83.92 kg Pascual Hi DPM Work Phone: [facility] 05-10-2025 14:09-0400 Body height 162.6 cm Pascual Do DPM Work Phone: [facility] 05-10-2025 14:09-0400 Body mass index (BMI) [Ratio] 31.76 kg/m2 Pascualkhushbu Do DPM Work Phone: [facility] 05-10-2025 14:09-0400 Body weight 83.92 kg Pascualkhushbu Do DPM Work Phone: [facility] 11-16-2024 13:12-0500 Body mass index (BMI) [Ratio] 31.89 kg/m2 Joseline COLLADO Work Phone: [facility] 11-16-2024 13:12-0500 Body weight 84.28 kg Joseline COLLADO Work Phone: [facility] 11-16-2024 13:12-0500 Diastolic blood pressure 68 mm[Hg] Joseline COLLADO Work Phone: [facility] 11-16-2024 13:12-0500 Systolic blood pressure 110 mm[Hg] Joseline COLLADO Work Phone: [facility] 11-02-2024 13:11-0500 Body mass index (BMI) [Ratio] 32.61 kg/m2 Joseline COLLADO Work Phone: [facility] 11-02-2024 13:110500 Body weight 86.18 kg Joseline COLLADO Work Phone: [facility] 11-02-2024 13:11-0500 Diastolic blood pressure 82 mm[Hg] Joseline COLLADO Work Phone: [facility] 11-02-2024 13:11-0500 Systolic blood pressure 132 mm[Hg] Joseline COLLADO Work Phone: [facility] Healthcare Encounters Encounter Date Encounter Type Care Provider Facility Start: 05-25-2025 End: 05-25-2025 Bamboo flowsche Do DPM Work Phone: [facility] Start: 05-25-2025 End: 05-25-2025 Bamboo flowsheet Pascual Do DPM Work Phone: [facility] Start: 05-25-2025 End: 05-25-2025 Office outpatient visit 15 minutes Pascual Do DPM Work Phone: [facility] Comment on above: Dunaway's neuroma of left foot (Primary Dx); Peripheral neuritis of left foot; Pain in left foot; Difficulty walking Start: 05-25-2025 End: 05-25-2025 ambulatory PASCUAL DO Not Available Start: 05-10-2025 End: 05-10-2025 ambulatory PASCUAL DO Not Available Start: 05-10-2025 End: 05-10-2025 Bamboo flowsheet Pascual Do DPM Work Phone: [facility] Start: 05-10-2025 End: 05-10-2025 Bamboo flowsheet Pascual Do DPM Work Phone: [facility] Start: 05-10-2025 End: 05-10-2025 Office outpatient new 30 minutes Pascual Do DPM Work Phone: [facility] Comment on above: Dunaway's neuroma of left foot (Primary Dx); Pain in unspecified foot; Peripheral neuritis of left foot; Capsulitis of metatarsophalangeal (MTP) joint of left foot; Difficulty walking Start: 05-10-2025 End: 05-10-2025 ambulatory PASCUAL A HI Not Available Start: 11-16-2024 End: 11-16-2024 Bamboo flowsheet Joseline COLLADO Work Phone: [facility] Start: 11-16-2024 End: 11-16-2024 Bamboo flowsheet Joseline COLLADO Work Phone: [facility] Start: 11-16-2024 End: 11-16-2024 Postop follow up visit related to original px Joseline COLLADO Work Phone: [facility] Comment on above: Postop check Start: 11-16-2024 End: 11-16-2024 ambulatory JOSELINE GARCIA Not Available Start: 11-04-2024 End: 11-04-2024 [facility] Result Encounter Joaquín Aishwarya DO Work Phone: [facility] External Department Unsolicited Start: 11-04-2024 End: 11-04-2024 Clinisync Result Encounter Joaquín Aishwarya DO Work Phone: [facility] External Department Unsolicited Start: 11-02-2024 End: 11-02-2024 Departed Referred Ilan Fink MD Work Phone: [facility] [place] Work Phone: Start: 11-02-2024 End: 11-02-2024 Bamboo flowsheet Joseline COLLADO Work Phone: [facility] Start: 11-02-2024 End: 11-08-2024 Bamboo flowsheet Joseline COLLADO Work Phone: [facility] Start: 11-02-2024 End: 11-08-2024 Clinisync Result Encounter Joseline COLLADO Work Phone: [facility] External Department Unsolicited Start: 11-02-2024 End: 11-02-2024 Patient encounter procedure Joseline COLLADO Work Phone: [facility] Start: 11-02-2024 End: 11-02-2024 Periodic preventive med est patient 40-64yrs Joseline COLLADO Work Phone: [facility] Comment on above: Well woman exam with routine gynecological exam; Breast cancer screening by mammogram; Osteoporosis, post-menopausal ([facility]) Start: 11-02-2024 End: 11-02-2024 ambulatory Ilan Fink MD Work Phone: [facility] Work Phone: Start: 09-02-2022 End: 09-03-2022 [...] 11-02-2029 Screening for malignant neoplasm of cervix [facility] Start: 06-04-2027 Screening for malignant neoplasm of cervix [facility] Start: 11-08-2025 End: 11-08-2025 Patient encounter procedure [facility] Start: 11-04-2025 Screening for malignant neoplasm of breast Mammogram [facility] Start: 06-15-2025 End: 06-15-2025 Patient encounter procedure 06/15/2025 8:45 AM EDT Office Visit [facility] [address] [place] [address] Pascual Do DPM [address] [place] [address] [facility] Start: 05-25-2025 End: 05-25-2025 Patient encounter procedure 05/25/2025 8:45 AM EDT Office Visit [facility] [address] [place] [address] Pascual Do DPM [address] [place] [address] Arrived [facility] Comment on above: Arrived Start: 05-24-2025 End: 05-24-2025 Patient encounter procedure 05/24/2025 11:00 AM EDT Office Visit [facility] [address] [place] [address] Pascual Do DPM [address] [place] [address] [facility] Start: 05-22-2025 Influenza vaccination Influenza Vacc ine (#1) [facility] Start: 05-10-2025 End: 05-10-2025 Patient encounter procedure 05/10/2025 1:45 PM EDT Office Visit [facility] [address] [place] [address] Pascual Do, DPM [address] [place], [place] [id number] Pain in unspecified foot [facility] Comment on above: Pain in unspecified foot Start: 11-16-2024 End: 11-16-2024 Patient encounter procedure 11/16/2024 1:10 PM EST Office Visit [facility] [address] [place] [address] Joseline Garcia PA [address] [place] [address] [place] [address] Arrived [facility] Comment on above: Arrived Start: 11-02-2024 End: 11-02-2025 DXA Skeletal system Views for bone density DEXA bone density Imaging Routine Osteoporosis, post-menopausal ([facility]) Expected: 11/02/2024 (Approximate), Expires: 11/02/2025 [facility] Comment on above: Expected: 11/02/2024 (Approximate), Expires: 11/02/2025 Start: 11-02-2024 End: 12-31-2025 MG Breast - bilateral Screening Bilateral screening mammogram Imaging Routine Breast cancer screening by mammogram Expected: 11/02/2024 (Approximate), Expires: 12/31/2025 [facility] Work Phone: Comment on above: Expected: 11/02/2024 (Approximate), Expires: 12/31/2025 Start: 11-02-2024 End: 11-02-2024 Patient encounter procedure 11/02/2024 1:00 PM EST Office Visit [facility] [address] [place] [address] Joseline Garcia, PA [address] [place] [address] Arrived [facility] Comment on above: Arrived Start: 09-09-2024 Screening for malignant neoplasm of breast Mammogram [facility] Start: 05-22-2024 Influenza vaccination Influenza Vacc ine (#1) [facility] Start: 1970 Screening for malignant neoplasm of colon [facility] THIN PREP TIS PAP AN D HR HPV DNA THIN PREP TIS PAP AND HR HPV DNA Pathology and Cytology Routine Well woman exam with routine gynecological exam Ordered: 11/02/2024 [facility] Comment on above: Ordered: 11/02/2024 Immunizations Immunization Date Immunization Notes Care Provider Katie coronel 07-09-2017 influenza virus vacc ine, unspecified formulation Joseline COLLADO Work Phone: [facility] Payers Date Payer Category Payer Self-pay [id number] 2022 Medicaid (Managed Care) [employer] [id number] 1970 Unknown [id number] [id number]. 593 1970 Unknown [id number] [id number]. 593 1970 Unknown [id number] 2.16840.1.980455.3.579.2. 593 1972 Unknown [id number] 2.16.840.1.406292.3.579.2. 593 1970 Unknown [id number] 2.16.840.1.614246.3.579.2. 1259 1970 Unknown [id number] 2.16.840.1.254758.3.579.2. 1259 1972 Unknown [id number] 2.16.840.1.528722.3.579.2. 1259 1972 Unknown [id number] 2.16.840.1.978677.3.579.2. 1259 1970 Unknown [id number] 2.16.840.1.725391.3.579.2. 1259 1959 Unknown [id number] Unknown [id number] [id number]. 531 Social History Date Type Detail Facility Start: 04[facility]01-2023 [facility] History of [...] Sex assigned at Not on file N [facility] Tobacco smoking stat [facility] Unknown if ever smoked [facility] Work Phone: Start: 11-04-2024 Sex Female (finding) [facility] Start: 1970 Sex Assigned At Female F [facility] Start: 05-10-2025 End: 05-25-2025 Tobacco smoking [...] relates she is leaving on vacation 06/19-07/21 [facility]. SS 8.5). HPI Follow-up assessment: Traumatic Dunaway's [...] footwear and modified insole. Scheduled trip to [facility], leaving 06/19/2025. Procedure: LEFT FOOT: Elective corticosteroid [...] Pascual Do DPM documented in this encounter [facility] Instructions 05-25-2025 Patient Instructions Note Date & [...] couch, 1 month later had xrays at [facility] 04/07/2025, no fractures at that time. [...] nursing note reviewed. Exam conducted with a 7th grade social studies teacher present. Vitals: Estimated body mass index is [...] Note Facility [facility] Evaluation note Note Date & [...] Difficulty in walking documented in this encounter [facility] Healthcare Summary Purpose Family History No [...] content) DATE CREATED AUTHOR 09/13/2022 [facility] pital DATE CREATED AUTHOR AUTHOR'S ORGANIZ ATION 11/14/2024 [facility] DATE CREATED AUTHOR AUTHOR'S ORGANIZ ATION 05/27/2025 [facility] dical Specialists EPIC Care Teams (unrecognized sec tion and content) Backside Grinder Relationship Specialty Start Date End Date Ilan Fink MD [address] [place] [address] PCP - General 04/01/23 Backside Grinder Relationship Specialty Start Date End Date Ilan Fink MD [address] [place] [address] PCP - General 04/01/23 Team Status: Active Member Role Status Dates Ilan Fink MD Primary Care Provider Active Team Status: Inactive Member Role Status Dates Joaquín Neff DO Attending Provider Active Start : November 02, 2024 End: November 02, 2024 Ilan Fink MD Primary Care Provider Active Start: November 02, 2024 End: November 02, 2024 Backside Grinder Relationship Specialty Start Date End Date Ilan Fink MD [address] [place] [facility] [place] [address] PCP - General 04/01/23 Backside Grinder Relationship Specialty Start Date End Date Ilan Fink MD [address] [facility] [place] [address] PCP - General 04/01/23 Backside Grinder Relationship Specialty Start Date End Date Ilan Fink MD [address] [facility] [place] [address] PCP - General 04/01/23 Backside Grinder Relationship Specialty Start Date End Date Ilan Fink MD [address] [facility] [place] [address] PCP - General 04/01/23 Backside Grinder Relationship Specialty Start Date End Date Ilan Fink MD [address] [facility] [place] [address] PCP - General 04/01/23 Backside Grinder Relationship Specialty Start Date End Date Ilan Fink MD [address] [facility] [place] [address] PCP - General 04/01/23 Backside Grinder Relationship Specialty Start Date End Date Ilan Fink MD [address] [place] [address] PCP - General 04/01/23 Reason for Visit (unrecogniz ed section and content) Reason Comments Gynecologic Exam Reason Comments Suture / Staple Removal Reason Comments Toe Pain Amie Verma 54yo New Patient presents with referral from Dr. Fink for toe pain. Patient relates 02/2025 she bumped her toes on the couch, 1 month later had xrays at [facility] 04/07/2025, no fractures at that time. Left 2,3,4 toes, pain comes and goes. Patient typically walks 1-3 miles daily, wearing Prado. SS 8.5 Specialty Diagnoses / Procedures Referred By Marko don Referred To Contact Podiatry Diagnoses Pain in unspecified foot Procedures CO OFFICE/OUTPATIENT NEW HIGH MDM 60 MINUTES Ilan Fink MD [address] [place] [address] Phone: tel: fax: [facility] [address] [place] [address] Phone: tel: fax: Referral ID Status Reason Start Date Expiration Date V isits Requested Visits Authorized [id number] Closed Specialty Services Required 04/12/2025 07/13/2025 1 1 Reason Comments FUV Amie Verma is a 54 y.o. female who presents for FUV Left Toes Pain. States no change. Prednisone helped, however patient gained 10 lbs. Patient relates she stubbed the toes again, about 4 days ago. Patient relates she is leaving on vacation 06/19-07/21 [facility]. SS 8.5 Goals (unrecognized section and content) [...] BE BASED ON THE PRIMARY CLINICAL RECORDS. [facility] [employer] [facility]. provides no warranty or guarantee of the accuracy or completeness of information in this document.
--- NOTE | 2025-07-02 04:06 | PC.NURSE ---
Patient has splint in place to left lower leg that is rubbing and causing brusing.
--- NOTE | 2025-07-02 04:36 | ED.GENADUL1 ---
HPI HPI - General Adult General Chief complaint: Extremity Injury, Lower Stated complaint: LE PAIN Time Seen by Provider: 07/02/25 03:33 Source: patient Mode of arrival: walk-in History of Present Illness HPI narrative: Patient is a 54-year-old female presenting to the emergency department for concerns of an uncomfortable left lower extremity splint. The patient was diagnosed with possible talar fracture yesterday in the ED. She was placed in a posterior short leg splint. However, she states that the splint is too high and interferes with her ability to flex her knee. She also feels like her heel is uncomfortable and there was not enough padding. She denies any interval injuries or acute complaints. Related Data Home Medications ?Medication ?Instructions ?Recorded ?Confirmed dexlansoprazole 60 mg 60 mg PO DAILY 09/10/23 07/01/25 capsule,biphase delayed release (Dexilant) aspirin 81 mg tablet,delayed 81 mg PO BID 07/01/25 07/01/25 release (Adult Aspirin Regimen) Previous Rx's ?Medication ?Instructions ?Recorded oxycodone-acetaminophen 5 mg-325 1 tab PO Q6H PRN pain 5 days #20 07/01/25 mg tablet (Percocet) tabs Allergies Allergy/AdvReac Type Severity Reaction Status Date / Time No Known Drug Allergies Allergy Verified 07/02/25 03:28 Opioid HPI Opioid Management Most Recent Opioid Data: Last Pain Scale 10 07/01/25, 14:20 Review of Systems ROS Status of ROS 10 or more systems reviewed and unremarkable except as noted in history and below PFSH PFSH Social History Little interest or pleasure in doing things: not at all Feeling down, depressed, or hopeless: not at all Exam Narrative Exam Narrative: CONSTITUTIONAL: Well-appearing, answering questions and following commands appropriately SKIN: Was warm and dry. EYES: Sclerae white. EARS, NOSE, THROAT: Moist oral mucosa. RESPIRATORY: Nonlabored respirations CARDIOVASCULAR: Normal rate and regular rhythm. Cap refill less than 2 seconds in the toes of the left foot. GASTROINTESTINAL: Abdomen is nondistended. MUSCULOSKELETAL: The left lower extremity has a posterior long-leg splint with stirrups. Upon removal of the splint, there is mild bruising in the anterior bowles without any other abnormalities. She wiggles all of her toes, they are warm and well-perfused. NEUROLOGIC: Patient is awake and alert. Good sensation throughout all of her toes on the left foot. Constitutional Vital Signs, click to edit/add: Last Vital Signs Temp 98.0 F 07/02/25 03:28 Pulse 100 H 07/02/25 03:28 Resp 20 07/02/25 03:28 BP 172/74 H 07/02/25 03:28 Pulse Ox 99 07/02/25 03:28 O2 Del Method Room Air 07/02/25 03:28 Course Vital Signs Vital signs: Vital Signs Temperature 98.0 F 07/02/25 03:28 Pulse Rate 100 H 07/02/25 03:28 Respiratory Rate 20 07/02/25 03:28 Blood Pressure 172/74 H 07/02/25 03:28 Pulse Oximetry 99 07/02/25 03:28 Oxygen Delivery Method Room Air 07/02/25 03:28 Temperature 98.0 F 07/02/25 03:28 Pulse Rate 100 H 07/02/25 03:28 Respiratory Rate 20 07/02/25 03:28 Blood Pressure 172/74 H 07/02/25 03:28 Pulse Oximetry 99 07/02/25 03:28 Oxygen Delivery Method Room Air 07/02/25 03:28 Medical Decision Making MDM Narrative Medical decision making narrative: Patient is a 54-year-old female presenting to the emergency department for an adjustment to her left lower extremity splint. She was just diagnosed with a talar fracture yesterday and RAD. Her vital signs arrival are significant for hypertension, otherwise within normal limits. Upon removal of the splint, she remains neurovascularly intact in the lower extremity. I did reapply the posterior long-leg splint and added more padding specifically to the heel. The splint was shortened so that she can now flex at the knee. She states this feels more comfortable and feels okay to be discharged to follow-up with orthopedic surgery. She instructed return to emergency department should she develop any other concerning symptoms. Patient understands and agrees the plan. FINAL IMPRESSION: #Acute encounter for splint placement #History of recent left talus fracture DISPOSITION: Discharged home CONDITION: Good Discharge Plan Discharge Chief Complaint: Extremity Injury, Lower Clinical Impression: Fracture, talus closed Patient Disposition: Home, Self-Care Time of Disposition Decision: 03:54 Condition: Good Mode of Transportation: Private Vehicle Prescriptions / Home Meds: No Action dexlansoprazole [Dexilant] 60 mg capsule,biphase delayed releas 60 mg PO DAILY aspirin [Adult Aspirin Regimen] 81 mg tablet,delayed release (DR/EC) 81 mg PO BID oxycodone-acetaminophen [Percocet] 5-325 mg tablet 1 tab PO Q6H PRN (Reason: pain) 5 Days Qty: 20 0RF Print Language: Kiswahili Instructions: Talar Fracture in Adults (ED) Referrals: Adán Fink MD [Primary Care Provider, Family Practice] - 1 week Discharge Date/Time: 07/02/25 04:30 Procedures ED Ortho Splinting/Casting Orthopedic Splinting/Casting Injury #1: Side: left Splint type: Splint leg short Lower extremity injury location: foot Lower extremity immobilizer: posterior splint
== END 2025-07-02 04:30 | disposition home or self-care (01) ==
PROVIDERS: Emergency Provider Student in an Organized Health Care Education/Training Program; PCP Family Medicine
DX: S92.102D Unspecified fracture of left talus, subsequent encounter for fracture with routine healing (principal); X58.XXXD Exposure to other specified factors, subsequent encounter
CPT/HCPCS: 29515; 99281

== ENCOUNTER 2025-08-28 14:00 | Outpatient (OUT) | payer OTHER, SELFPAY ==
--- NOTE | 2025-08-28 14:04 | XR_ITS ---
[place] [id number] Patient Name: AMIE VERMA MRN: [id number] date: 1970 Sex: F Assigned Patient Location: [facility] Current Patient Location: [facility] Accession/Order Number: [id number] Exam Date: 08/28/2025 14:10 Report Date: 08/28/2025 16:27 At the request of: ILAN AVENDAÑO MD Procedure: XR ribs RT 2V XR ribs RT 2V 08/28/2025 2:22 PM SIGNS AND SYMPTOMS: ^Chest Pain , fall, posterior right rib pain PROTOCOL: Frontal radiograph of the chest with oblique radiographs of the right ribs COMPARISON: None FINDINGS: The trachea is midline. The heart and mediastinal structures are within normal limits. The lung parenchyma is clear. The bony thorax is intact. No acute displaced rib fracture. XR/XR ribs RT 2V IMPRESSION: No acute cardiopulmonary pathology. No acute displaced rib fracture. Impression dictated by: Yusuf Madison M.D. 08/28/2025 4:27 PM Dictation Location: [place] [address] Electronically authenticated by: [id number] Y Date: 08/28/2025 16:27
--- NOTE | 2025-08-28 14:04 | XR_ITS ---
[place] [id number] Patient Name: AMIE VERMA MRN: [id number] date: 1970 Sex: F Assigned Patient Location: [facility] Current Patient Location: [facility] Accession/Order Number: [id number] Exam Date: 08/28/2025 14:10 Report Date: 08/28/2025 16:28 At the request of: ILAN AVENDAÑO MD Procedure: XR chest 2V XR chest 2V 08/28/2025 2:22 PM SIGNS AND SYMPTOMS: ^Chest Pain , fall, posterior right rib pain PROTOCOL: Frontal and lateral radiographs of the chest COMPARISON: Frontal and lateral radiographs of the chest FINDINGS: The trachea is midline. The heart and mediastinal structures are within normal limits. The lung parenchyma is clear. The bony thorax is intact. XR/XR chest 2V IMPRESSION: No acute cardiopulmonary pathology. Impression dictated by: Yusuf Madison M.D. 08/28/2025 4:28 PM Dictation Location: [place] [address] Electronically authenticated by: [id number] Y Date: 08/28/2025 16:28
== END 2025-08-28 14:01 | disposition home or self-care (01) ==
LOC: RAD 14:01
PROVIDERS: PCP Family Medicine; Visit Provider Family Medicine
DX: R07.9 Chest pain, unspecified (principal)
CPT/HCPCS: 71046; 71100

== ENCOUNTER 2025-09-20 11:40 | Outpatient (OUT) | payer OTHER, SELFPAY ==
--- OUTSIDE RECORDS SUMMARY | 2024-12-07 03:30 | XMS_ITS ---
Author Organization [facility] [place] Address [address] [place] [address] Care Team Providers Care Claims Investigator Name Role Phone Sukhdeep Fink Primary Care Provider REASON FOR VISIT diet check Encounters Encounter Location Date Provider Diagnosis [facility] [address] [place] [address] 12/07/2024 Sukhdeep Fink Plan Of Treatment No Information Progress Notes * Natali VERMA MDOB:1970 (54 yo F)Acc No.[id number]:12/07/2024 UNLOCKED PROGRESS NOTE Progress Note Patient: Natali STEWART :?Adán Fink (JULIO), MDDOB:1970???Age: 54 Y???Sex:FemaleDate:12/07/2024Phone:[phone]:[id number] Subjective: * Chief Complaints: * 1 . Diet check. * Medical History: Objective: * Vitals: Assessment: Plan: * Treatment: * * Electronic signature of Sukhdeep Fink MD, [id number] on 09/20/2025 at 11:44 AM EST Sign off status: PendingVisit Status:?CANC (Cancelled) * Provider: Lisandra Fink MD (TTC) Date: 0 12/07/2024 Generated for Printing/Faxing/eTransmitting on:?09/20/2025 11:44 AM EST
--- OUTSIDE RECORDS SUMMARY | 2025-09-12 19:48 | XMS_ITS | Continuity of Care Document ---
Author Organization [facility] Address [address] [place] [address] Phone Care Team Providers Care Structural Draftsman Name Role Phone Adán Fink MD Primary Care Provider Rajesh Schaefer MD Attending Provider Rajesh Schaefer MD Other Provider Care Teams Patient Care Team Team Status: Active Member Role/Relationship Status Mulugeta Fink MD Primary Care Provider Active Visit Care Team Team Status: Inactive Member Role/Relationship Status Mulugeta Fink MD Primary Care Provider Active Start: July 04, 2025 End: July 04, 2025ThGiselle Montana ProviderActiveStart: July 04, 2025 End: July 04, 2025 Visit Care Team Team Status: Inactive Member Role/Relationship Status Mulugeta Schaefer MD Attending Provider Active Star t: July 04, 2025 End: July 04, 2025ROHINI Morarimary Care ProviderActiveStart: July 04, 2025 End: July 04, 2025 Visit Care Team Team Status: Active Member Role/Relationship Status Mulugeta Fink MD Primary Care Provider Active Start: July 05, 2025 Giselle Christine ProviderActiveStart: July 05, 2025 Rajesh Schaefer MDOther ProviderActiveStart: July 05, 2025 Visit Care Team Team Status: Inactive Member Role/Relationship Status Mulugtea Fink MD Primary Care Provider Active Start: July 11, 2025 End: July 11omas Olexa , MDAttending ProviderActiveStart: July 11, 2025 End: July 11, 2025 Visit Care Team Team Status: Inactive Member Role/Relationship Status Mulugeta Schaefer MD Attending Provider Active Star t: July 11, 2025 End: July 11, 2025DoJackie Schneider Care ProviderActiveStart: July 11, 2025 End: July 11, 2025 Visit Care Team Team Status: Inactive Member Role/Relationship Status Mulugeta Fink MD Primary Care Provider Active Start: August 15, 2025 End: August 15omas Olexa , HUMBERTOttending ProviderActiveStart: August 15, 2025 End: August 15, 2025 Visit Care Team Team Status: Inactive Member Role/Relationship Status Mulugeta Schaefer MD Attending Provider Active Star t: August 15, 2025 End: August 15, 2025DoJackie Schneider Care ProviderActiveStart: August 15, 2025 End: August 15, 2025 Visit Care Team Team Status: Inactive Member Role/Relationship Status Mulugeta Fink MD Primary Care Provider Active Start: September 12, 2025 End: September 12, 2025Thomas Olexa , MDAttending ProviderActiveStart: September 12, 2025 End: September 12, 2025 Visit Care Team Team Status: Inactive Member Role/Relationship Status Mulugeta Schaefer MD Attending Provider Active Star t: September 12, 2025 End: September 12, 2025DoJackie Schneider Care ProviderActiveStart: September 12, 2025 End: September 12, 2025 Chief Complaint and Reason for Visit Chief Complaint Admit Date CONSULT DR FINK OUT OF STATE GEE ANKLE FX July 04, 2025 11:16am M25.571 - Pain in right ankle and joints of right July 04, 2025 11:20am Fracture July 05, 2025 8 :42am 1 week post op July 11, 2025 9 :55am S82.842A - Displaced bimalleolar fractur e of left July 11, 2025 9:57am 5 WEEKS August 15, 2025 9:50am S82.842A - Displaced bimalleolar fractur e of left August 15, 2025 9:58am 4 WEEKS September 12, 2025 9:53am Z98.890 - Other specified postprocedural states September 12, 2025 9:55am Reason for Visit Admit Date Bimalleolar fracture of left ankle Octob er 2024 11:16am Pre-op exam July 04, 2025 1 1:16am Right ankle sprain July 04, 2025 1 1:16am Bimalleolar fracture of left ankle Octob er 2024 9:55am Other specified postprocedural states Oc tober 2024 9:55am Right ankle sprain July 11, 2025 9 :55am Bimalleolar fracture of left ankle Novem 2024 9:50am Other specified postprocedural states No vember 2024 9:50am Right ankle sprain August 15, 2025 9:50am Bimalleolar fracture of left ankle Decem kimberly 2024 9:53am Other specified postprocedural states De cember 2024 9:53am Right ankle sprain September 12, 2025 9:53am Allergies, Adverse Reactions, Alerts Allergen Type Severity Reaction Last Updated Verified Status No Known Allergies Allergy Unknown September 12, 2025 10:17amYesActive Social History Smoking Status Status Start Date End Date Date of Observa tion Ex-smoker (finding) July 05, 2025 9:46am Observation Status Observation Response Date of Response Legal Sex Female (finding) Sex Assigned At [facility] 1970 Family History Relationship Condition Age at Onset Recorded Date/T eulalia father Heart disease Unknown High blood cholesterolUnknownHypertensionUnknownMyocardial infarctionUnknown motherHeart diseaseUnknownHigh blood cholesterolUnknownHypertensionUnknown Myocardial infarctionUnknownCerebrovascular accident (CVA)Unknownpaternal grandfatherDiabetes mellitusUnknownpaternal grandmotherHeart diseaseUnknown Problems Active Problems Problem Diagnosis/Recorded Date Onset Date Stat us Bilateral ankle pain July 04, 2025 10:16am Unknow n Active Other specified postprocedural states July 10 3:29pm Unknown Active Bimalleolar fracture of left ankle July 04, 2025 10:58am Unknown Active Pre-op exam July 04, 2025 10:58am Unknown A ctive Right ankle sprain July 04, 2025 11:02am Unknown Active Medications Medication Status Dose Units Route Directions Qty Days Refills S tart Date Stop Date End Date Reason(s) Instructions Adherence Multivitamin (Daily Multi-Vitamin) tablet Active 1 TAB PO Daily July 04, 2025 11:00pmUnknownDoxycycline Hyclate 100 mg capsuleDiscontinued 100MGPOTwice dailySheridan [facility] Hospital 2024 11:00[facility]2024 10:11amOxycodone 5 mg butuuykCwwfll9EOVMYdioi 6 hours as needed for lalj8Ckvzxgy 2024 11:00pmUnknownAspirin 81 mg bckbkpCukjdf96GFNZHlfibJmgwjsv 2024 11:00pm UnknownCefdinir 300 mg ekntdpxDfjxkwrcnhle666JJMOQwjhu dailySheridan Community Hospital 2024 11:00pmAugust 15, 2025 10:11amCyanocobalamin (Vitamin B-12) 500 mcg lozenge Vyefvf471PNVIRZlkcsVloampj 2024 11:00pmUnknownDexlansoprazole (Dexilant) 60 mg capsule,biphase delayed khbmhwEgmpza29WLNLJaszrKztezkj 2024 11:00pm UnknownHydrocodone-Acetaminophen 5-325 mg xegkgpRuhkwwjfkiax8ZOAUZJECPJ 4-6 HOURS as needed for dfby7910Qlzkpjd 2024 10:11am Bimalleolar fracture of left ankle Medical Equipment Device Date Implanted Device Details Orthopaedic fixation plate, non-bioabsorbable, sterile July 05, 2025 HUMBERTO: ()[id number] Issuing Agency: [employer] Device Id: [id number] bone screw, non-bioabsorbable, non-sterile July 05, 2025UDI: ()[id number] Issuing Agency: [employer] Device Id: [id number] bone screw, non-bioabsorbable, non-sterile July 05, 2025UDI: ()[id number] Issuing Agency: [employer] Device Id: [id number] bone screw, non-bioabsorbable, non-sterile July 05, 2025UDI: ()[id number] Issuing Agency: [facility] Device Id: [id number] bone screw, non-bioabsorbable, non-sterile July 05, 2025UDI: ()[id number] Issuing Agency: [facility] Device Id: [id number] bone screw, non-bioabsorbable, non-sterile July 05, 2025UDI: ()[id number] Issuing Agency: [facility] Device Id: [id number] bone screw, non-bioabsorbable, non-sterile July 05, 2025UDI: ()[id number] Issuing Agency: [facility] Device Id: [id number] bone screw, non-bioabsorbable, non-sterile July 05, 2025UDI: ()[id number] Issuing Agency: [facility] Device Id: [id number] bone screw, non-bioabsorbable, non-sterile July 05, 2025UDI: ()[id number] Issuing Agency: [facility] Device Id: [id number] bone screw, non-bioabsorbable, non-sterile July 05, 2025UDI: ()[id number] Issuing Agency: [facility] Device Id: [id number] Procedures Procedure Date Performed Status XR ankle LT min 3V* July 11, 2025 8:57am co mpleted XR ankle LT min 3V* August 15, 2025 9:58am c ompleted XR ankle LT min 3V* September 12, 2025 9:56am c ompleted XR ankle BI 3V July 04, 2025 10:20am compl eted Relevant Diagnostic Tests and/or Laboratory Data Laboratory Results Test Collection Date/Time Result Date/Time Result Interpretation Reference Range Result Comment Performing Site Corrected White Blood Count July 04, 2025 12:45pm July 04, 2025 2:50pm 9.2 10*3/uL 3.8-11.6[facility] [id number] [address] [facility] [address]Sjgtjgkhugq WBC CountOctober 2024 12:45pmOctober 2024 2:50pm9.2 10*3/uL3.8-11.6[facility] [id number] [address] [facility] [address]Wop Blood CountOctober 2024 12:45pmOctober 2024 2:50pm4.19 10*6/uL3.60-5.00[facility] [id number] [address] [facility] 86685YbgfqzzutmKruxsuw 2024 12:45pmOctober 2024 2:50pm 8.6 g/dLBelow low trdvyy12.8-15.4[facility] [id number] [address] [facility] 834[address]FtkpqnjecaSsjtnbj 2024 12:45pmOctober 2024 2:50pm 27.4 %Below low .0-46.4FL[facility] [id number] [address] [facility] [address]Gfck Corpuscular VolumeOctober 2024 12:45pmOctober 2024 2:50pm65.4 fLBelow low qizqmi14-286SdxnagwzkLouis [facility] [id number] [address] [facility] 409[address]Wfsw Corpuscular HemoglobinOctober 2024 12:45pmOctober 2024 2:50pm20.6 pgBelow low oenxjo28.7-34.3FL[facility] [id number] [address] [facility] 56273Btki Corpuscular Hemoglobin ConcentOctober 2024 12:45pm October 2024 2:50pm31.4 g/dLBelow low onrzfl52.0-35.0[facility] [id number] [address] [facility] [address]35[address]Vnn Cell Distribution WidthOctober 2024 12:45pmOctober 2024 2:50pm18.8 %Above high .9-15.[address] [place] [address] Ctr [id number] [address] [facility] 80[address]Dmuloibx CountOct2024 12:45pmOctober 2024 2:33by356 10*3/jD058-257HqvjdgtleLouis [facility] [id number] [address] [facility] 34649Iqac Platelet VolumeOct2024 12:45pmOctober 2024 2:50pm7.6 fL6.3-10.7FL[facility] [id number] [address] [facility] 00503Aqfuvrjsazx (%) (Auto)July 04, 2025 12:45pmOctober 2024 2:50pm69.9 %.[facility] [id number] [address] [facility] 57351Zbojaxuggai (%) (Auto)July 04, 2025 12:45pmOctober 2024 2:50pm21.4 %.[facility] [id number] [address] [facility] 68[address]Mjentwvsq (%) (Auto)July 04, 2025 12:45pmOctober 2024 2:50pm6.8 %.[facility] [id number] [address] [facility] 49[address]Opgdcufinjf (%) (Auto)July 04, 2025 12:45pmOctober 2024 2:50pm1.1 %.[facility] [id number] [address] [facility] 09404Irjnlerzv (%) (Auto)July 04, 2025 12:45pmOctober 2024 2:50pm0.8 %.[facility] [id number] [address] [facility] 18166Ltkkmxlvm RBC Relative Count (auto)July 04, 2025 12:45pm July 04, 2025 2:50pm0.1 /100{WBC}0-0.5FL[facility] [id number] [address] [facility] [address]Vvidkrdjovc # (Auto)July 04, 2025 12:45pmOctober 2024 2:50pm6.5 10*3/uL1.8-7.7[facility] [id number] [address] [facility] 90[address]Eadymvzqlcv # (Auto)July 04, 2025 12:45pmOctober 2024 2:50pm2.0 10*3/uL1.00-4.8[facility] [id number] [address] [facility] 01642Xeebmfkav # (Auto)July 04, 2025 12:45pmOctober 2024 2:50pm0.6 10*3/uL0.0-0.8[facility] [id number] [address] [facility] 86211Nbatemkegat # (Auto)July 04, 2025 12:45pmOctober 2024 2:50pm0.1 10*3/uL0.0-0.45[facility] [id number] [address] [facility] 938[address]Ximxhgrnu # (Auto)July 04, 2025 12:45pmOctober 2024 2:50pm0.1 10*3/uL0.0-0.2[facility] [id number] [address] [place] [address]Bom Blood Cell MorphologyOctober 2024 12:45pmOctober 2024 2:50pmN/[facility] [id number] [address] [facility] 93776KtqbzhfanwzxtNptpmfw 2024 12:45pmOctober 2024 2:50pmSlightLouis Stokes [facility] [id number] [address] [place] [address] 20942OfxahhcuhskwcPfwnvlc 2024 12:45pmOctober 2024 2:50pmSSamar[facility] [id number] [address] [place] [address] 08672QbeqctbkafnopiIfwduql 2024 12:45pmOctober 2024 2:50pmSlightLouis Stokes [facility] [id number] [address] [place] [address] 05283YnpvkziqskbxBajvppm 2024 12:45pmOctober 2024 2:50pm SlightLouis [facility] [id number] [address] [facility] 42244XrxwirrrorzzUejzlju 2024 12:45pmOctober 2024 2:50pm ModerateLouis Stokes [facility] [id number] [address] [facility] 79384ErrarecobtUoxwbhg 2024 12:45pmOctober 2024 2:50pm SlightLouis [facility] [id number] [address] [facility] [address]Yanjauzb EstimateOctober 2024 12:45pmOctober 2024 2:50pmNormalNormalLouis Stokes [facility] [id number] [address] [facility] [address]27[address]Cowwedns Morphology CommentOctober 2024 12:45pmOctober 2024 2:50pmNormalNormCrystal Clinic [facility] [id number] [address] [facility] 87566Cehqfvu LevelOctober 2024 12:45pmOctober 2024 2:26pm97 mg/lC91-975EgnndglljLouis [facility] [id number] [address] [place] [address] 43992Zjqdu Urea NitrogenOctober 2024 12:45pmOctober 2024 2:26pm12 mg/dL7-25[facility] [id number] [address] [facility] 95194DgunihkecsLhdgkqn 2024 12:45pmOctober 2024 2:26pm 0.64 mg/dL0.60-1.20[facility] [id number] [address] [facility] 71065Lqmwzklrx GFR (CKD-EPI)July 04, 2025 12:45pmOctober 2024 2:26pm> 60.0 mL/MinLouis Stokes [facility] [id number] [address] [place] [address] 89342Qsoses LevelOctober 2024 12:45pmOctober 2024 2:26pm 140 mmol/X854-953WxfajtifnLouis [facility] [id number] [address] [facility] 75[address]Wsawohmgi LevelOctober 2024 12:45pmOctober 2024 2:26pm4.1 mmol/L3.5-5.1FL[facility] [id number] [address] [facility] 67[address]Yeirxapm LevelOctober 2024 12:45pmOctober 2024 2:33ny367 mmol/Y69-768EuffynnrzLouis Stokes [facility] [id number] [address] [facility] 02346Nmrgrf Dioxide LevelOctober 2024 12:45pmOctober 2024 2:26pm27.6 mmol/L21.0-31.0[facility] [id number] [address] [facility] 258[address]Cppvb GapOctober 2024 12:45pmOctober 2024 2:26pm 11.5 mEq/L6.0-15.0[facility] [id number] [address] [facility] 09157Wkeetwh LevelOctober 2024 12:45pmOctober 2024 2:26pm8.6 mg/dL8.6-10.3[facility] [id number] [address] [facility] 080[address]Crjnh ProteinOctober 2024 12:45pmOctober 2024 2:26pm6.1 g/dLBelow low normal6.4-8.9[facility] [id number] [address] [facility] 93445FyzoivgUrtpaps 2024 12:45pmOctober 2024 2:26pm3.8 g/dL3.5-5.7FL[facility] [id number] [address] [place] [address] 89977AaleztwzLhnpgyj 2024 12:45pmOctober 2024 2:26pm2.3 g/dLLouis Stokes [facility] [id number] [address] [facility] 07841Wzgkxka/Globulin RatioOctober 2024 12:45pmOctober 2024 2:26pm1.7FL[facility] [id number] [address] [place] [address] 65169Isnao BilirubinOctober 2024 12:45pmOctober 2024 2:26pm0.3 mg/dL0.3-1.0[facility] [id number] [address] [facility] 23657Dkbzveboc Amino Transf (AST/SGOT)July 04, 2025 12:45pm July 04, 2025 2:26pm10 U/LBelow low akrlkw70-83RpfloifasLouis Stokes Cleveland [facility] [id number] [address] [facility] 63663Ljqqswk Aminotransferase (ALT/SGPT)July 04, 2025 12:45pm July 04, 2025 2:26pm8 U/L7-52[facility] [id number] [address] [place] [address] 65211Puejxvte PhosphataseOctober 2024 12:45pmOctober 2024 2:26pm78 U/W32-134DwkefgvrjLouis Stokes [facility] [id number] [address] [place] [address] 52022Gyylzezp Creatinine Clearance (ChemOctober 2024 12:45pm July 04, 2025 2:26pmN/[facility] [id number] [address] [place] [address] Diagnostic Imaging Reports Author Nitza Fernandez [facility] HospitalReport Date/TimeDecember 2024 11:58am [facility] [address] [place] [address] XRay Report Signed Patient: Natali Stover MR#: [id number] : 1970 Acct:[id number] Age/Sex: 54 / F ADM Date: 5 Loc: [facility] Room: Type: [facility] Attending Dr: Rajesh Schaefer MD Copies to: Rajesh Schaefer MD~ Ordering Provider: Rajesh Schaefer MD Date of Service: 09/12/25 XR/XR ankle LT min 3V*: Z98.890 - Other specified postprocedural states LEFT ANKLE - 3 views CLINICAL DATA: Follow-up fractures COMPARISON: 08/15/2025 AP, lateral and oblique views were obtained. There is osteopenia. There is redemonstration of a lateral plate and multiple screws along the distal fibula. There are 2 cannulated screws at the medial malleolus. The underlying fracturesare unchanged in alignment. There is no new fracture or dislocation. There areno significant soft tissue abnormalities. XR/XR ankle LT min 3V* IMPRESSION: STABLE APPEARANCE OF THE ANKLE Impression dictated by: Nitza Fernandez M.D. 09/12/2025 11:58 AM Dictation Location: [employer] Transcribed By: [facility] 09/12/25 1158 Dictated By: Nitza Fernandez MD 09/12/25 1156 Signed By: <Electronically signed by MD Nitza Fernandez in [place]> 09/12/25 1158 Vital Signs Vital Reading Result Reference Range Collection Date/Time Height 63 [in_i] July 04, 2025 10:47ckRzjzjj00.18 kgOctpaintsville arh hospital 2024 10:38amBMI (Body Mass Index)33.6 kg/p4Fqcroeg 2024 10:31xbFxlwvj08 [in_i]July 05, 2025 7:00xnJdtcpl43.18 kgOctpaintsville arh hospital 2024 7:59amBody Owkgrprztuv00.6 [degF] 97.6-99.0[facility] 2024 11:10amHeart Xsdf672 /scs03-693Luapvtl 2024 12:43pmRespiratory rate16 /kzj42-81Uixaahk 2024 12:43pmOxygen saturation by Pulse fcgctely70 %95-100Octpaintsville ar[facility] hospital 2024 12:43pmBP Zpwlfrav318 mm[Hg] 100-140Octp[facility]ville [facility] 2024 12:43pmBP Vfewfvywh490 mm[Hg]60-100Octpaintsville ar[facility] hospital 2024 12:43pmInhaled oxygen flow rate6 L/minSheridan Community Hospital 2024 11:10am Advance Directives Advance Directive Response Recorded Date/ Time Advance Directives No October 3:00pm Insurance Providers Guarantor Bob Ventura Address [address] [facility] [address] Info.Home Phone: Coverage Status Update:2025 Payer Group Member ID Coverage Type Subscriber Relationship to Subscriber Effective Date Expiration Date [employer] [id number] Ruiz , M Id: [id number] [address] [place] [address] Home Phone: Email: [email or web address] Pay nullSelfSelf Encounters Encounter Location(s) Arrival/Admit Date Discharge/Departure Date Discharge/Departure Disposition Provider(s) Departed Physician/ Provider Office Visit -[facility] July 04, 2025 11:16am July 04, 2025 1:10pm Discharged to home care or self care (routine discharge) Rajesh Schaefer MD Departed Clinical -[facility] July 04, 2025 11:20am July 04, 2025 11:21am Discharged to home care or self care (routine discharge) Rajesh Schaefer MD Non-patient / Non-visit -[facility] July 05, 2025 8:42am CHICO Salazareparted Physician/Provider [facility] 9:55amOctober 2024 10:33amDischarged to home care or self care (routine discharge)Kapil Salazararted [facility] 9:57amOctober 2024 9:58amDischarged to home care or self care (routine discharge)Kapil Salazararted Physician/Provider [facility] 9:50amNovember 2024 10:45amDischarged to home care or self care (routine discharge)Kapil Salazararted Clinical-[facility] 9:58amNovember 2024 9:59amDischarged to home care or self care (routine discharge)Kapil Salazararted [facility]ician/[facility] 20[facility] 9:53amDecember 2024 10:39amDischarged to home care or self care (routine discharge)CHICO Salazareparted Clinical-[facility] 2024 9:55amDecember 2024 9:56amDischarged to home care or self care (routine discharge)Rajesh Schaefer MD Recent Diagnosis Onset Date Admit Date Bimalleolar fracture of left ankle Unknown July 04, 2025 11:16am Pre-op exam Unknown July 04 11:16am Right ankle sprain Unknown July 04, 2025 11:16am Bimalleolar fracture of left ankle Unknown July 11, 2025 9:55am Other specified postprocedural states Unknown July 11, 2025 9:55am Right ankle sprain Unknown July 11, 2025 9:55am Bimalleolar fracture of left ankle Unknown August 15, 2025 9:50am Other specified postprocedural states Unknown August 15, 2025 9:50am Right ankle sprain Unknown July 9:50am Bimalleolar fracture of left ankle Unknown September 12, 2025 9:53am Other specified postprocedural states Unknown September 12, 2025 9:53am Right ankle sprain Unknown August 9:53am Assessments Diagnosis Onset Date Resolution Status Admit Date Bimalleolar fracture of left ankle acuteOctober 2024 11:16amPre-op examacuteOctober 2024 11:16amRight ankle sprainacuteOctober 2024 11:16amBimalleolar fracture of left ankle acuteOctober 2024 9:55amOther specified postprocedural statesacuteOctober 2024 9:55amRight ankle sprainacuteOct2024 9:55amBimalleolar fracture of left ankleacuteAugust 15, 2025 9:50amOther specified postprocedural statesacuteNovember 2024 9:50amRight ankle sprainacute August 15, 2025 9:50amBimalleolar fracture of left ankleacuteDecember 2024 9:53amOther specified postprocedural statesacuteDecember 2024 9:53am Right ankle sprainacuteDececobre [facility] 2024 9:53am Plan of Treatment Author Samia [facility] 2024 11:46amThe patient has suffered a displaced bimalleolar fracture involving the left ankle. Due to fracture displacement we are recommending surgical treatment to improve anatomic alignment. We discussed the importance of icing and elevation of the leg above the heart to prevent swelling. We have recommended the use of one regular aspirin (325mg) per day for four weeks to help prevent DVT. 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 We have discussed the many potential complications of surgery including respiratory, cardiac, and patient positioning during anesthesia. The risks of DVT, scarring, predatory animal exterminator pain, non union, hardware failure, development of arthritis and need for future surgery were all discussed. Patient is aware and would like to proceed. Placed patient in cam walker boot today and instructed to continue non weight bearing. [place] op [place] [facility] [place] on use. Advised patient continue abx as prescribed by PCP post op. The patient appears to have suffered an anterolateral ankle/foot sprain. We will allow progressive gentle ankle motion as pain allows as well as gentle weight bearing. Author Samia [facility] 2024 1:42pmX-rays were reviewed with patient in detail. Patient instructed on wound care, steri strips will fall of with time. She can get in ankle wet in the shower at 2 weeks most op. Continue to work on foot/ankle/knee motion. Cotninue nonweightbearing on the ankle and continue use of the boot. Note scribed by KEELY Garay, reviewed and amended by Rajesh Schaefer M.D. Patient is in need of a wheelchair due to their nonweight bearing status after ORIF of the ankle. This is needed for aid in activities of daily living by increasing safety and stability. This will be needed for approximately 3 months. Author Natasha Floyd [facility] 2024 10:49amPatient instructed on continued ROM exercises, may begin to progress gentle weight bearing in cam walker boot. Physical therapy order provided, start therapy in 1-2 weeks Author [place] [facility] 2024 10:36amRadiographs of the ankle obtained in office today were reviewed with patient in detail today. Patient may progress with weightbearing as tolerated. Patient is encouraged to continue to work on strength and motion exercises. Patient may come out of walking boot while at home. She may continue to work progressing out of walking boot. Patient will follow up in 6 weeks with repeat xrays. Note scribed by KEELY Cuellar, reviewed and amended by myself Rajesh Schaefer M.D. Future Tests Future scheduled test information is unavailable Pending Tests Pending diagnostic test information is unavailable Future Visits Future appointment information is unavailable Future Procedures Procedure Name Ordered Date Scheduled Date Post Anesthesia Tracer order July 05, 2025 9:29am July 05, 2025 9:30am Discharge Order July 04, 2025 6:33pm Octobe r 2024 7:17pm Future Medications Future medication information is unavailable Patient Instructions Instruction Admit Date Know your Meds July 05, 2025 8 :42am
--- OUTSIDE RECORDS SUMMARY | 2025-09-20 11:44 | XMS_ITS | Clinical Summary ---
Author Organization [facility] Healthcare Address [address] [place] [address] Care Team Providers Care Lathe Puller Name Role Phone Adán Fink MD Primary Care Provider [phone] Allergies No known active allergies Medications MedicationSigDispense QuantityRefillsLast FilledStart DateEnd DateStatus Dexilant [address] capsule Take 1 capsule by mouth in the morning.Active predniSONE (Deltasone) 10 MG tablet Indications:Pain in unspecified foot,Dunaway's neuroma of left foot,Peripheral neuritis of left foot,Capsulitis of metatarsophalangeal (MTP) joint of left foot ,Difficulty walking1 tablet twice daily x 7 days; followed by 1 tablet daily as directed until complete 21 tablet 5Active Active Problems ProblemNoted DateDiagnosed DateSkin tags, multiple xewgzdeu69/09/2023 Family History Medical HistoryRelationNameCommentsDiabetesFatherJoe RuizHeart diseaseFatherJoe RuizHypertensionFatherJoe RuizDiabetesMotherSandy MarshallHeart diseaseMother Richelle MarshallHypertensionMotherSandy MarshallRelationNameStatusCommentsFather Sage RuizAliveMotherSandy MarshallAlive Social History Tobacco UseTypesPacks/DayYears UsedDateSmoking Tobacco: FormerCigarettes Smokeless Tobacco: Never Comments:Patient smokes 5 or less cigarettes/day Thinking about quitting. Patient quit 14 years ago Alcohol UseStandard Drinks/WeekCommentsNot Currently0 (1 standard drink = 0.6 oz pure alcohol)Alcohol: 1 or 2 drinks on typical day/monthly or less. Caffeine: 1- 2 cups/dayCommentsNoSex and Gender InformationValueDate RecordedSex Assigned at BirthNot on fileLegal QcuMoatbi25/15/2023 7:36 PM EDTGender Identity Not on fileSexual OrientationNot on file Last Filed Vital Signs Vital SignReadingTime TakenCommentsBlood Zhfifbuz350/6802 1:12 PM EST Pulse--Temperature--Respiratory Rate--Oxygen Saturation--Inhaled Oxygen Concentration--Hsndju19.9 kg (185 lb)05/25/2025 9:01 AM UAXWwqdnt694.6 cm (5' 4 )05/25/2025 9:01 AM EDTBody Mass Index31.76005/25/2025 9:01 AM EDT Plan of Treatment DateTypeDepartmentCare Team (Latest Contact Info)Bzdxwecubud11/18/2026 9:00 AM ESTOffice Visit [facility] [address] [place] [id number] Joseline Ross PA [address] [address] Health MaintenanceDue DateLast DoneCommentsCT Jaitsggvadal29/02/1973Colonoscopy 1972Colorectal Cancer Ruufxfrnr76/02/1973FIT-DNA1972FIT1972 FOBT1972 8988Vxnyglgfkgghw23/02/1973Influenza Vaccine (#1)/ Rzpvxceje03/14/451366/, 09/09/2023, 2Cervical Cancer Screening 11/02/2029HPV/Mlydin8911/02/2029Pap Smear11/02//08/2025, 06/04/2022 Pneumococcal Vaccine: Pediatrics (0 to 5 Years) and At-Risk Patients (6 to 64 Years)Aged OutNo longer eligible based on patient's age to complete this topic Procedures Procedure NamePriorityDate/TimeAssociated DiagnosisCommentsMM TOMOSYNTHESIS SCREENING BI11/04/2024 10:53 AM EST PAP ZJINEUdtulol34/12/2025 12:00 AM ESTfrom Last 3 Months or Most Recently Relevant to Health Maintenance Results * MM TOMOSYNTHESIS SCREENING BI (11/04/2024 10:53 AM EST)Anatomical Region LateralityModalityOtherSpecimen (Source)Anatomical Location / Laterality Collection Method / VolumeCollection TimeReceived Time11/04/2024 10:53 AM EST Narrative 11/04/2024 10:54 AM EST [facility] ?[address] ? [place] [address] ? Mammography Report ? Signed ? Patient: NATALI VERMA ?MR#: [id number] ?? : 1970 ?Acct:[id number] ?? Age/Sex: 54 / F ?ADM Date: 11/02/24 ?? Loc: MAMMO ? Attending Dr: Joaquín Neff D.O. ? Ordering Physician: Joaquín Neff D.O. ?Results: ? Date of Service: 11/02/24 ?Follow Up: ? Procedure(s): MM tomosynthesis screening BI ?? Accession Number(s): [id number] ? cc: Joaquín Neff D.O.; Adán Fink M.D. ? Patient Name: ? NATALI VERMA ? MR#: [id number] ? : 1970 ? Exam Date: 11/02/2024 ?? Ordering Doctor: DR Joaquín Neff . ? RADIOLOGY REPORT ? PROCEDURE: ? MM TOMOSYNTHESIS SCREENING BI ? COMPARISON: ? MM TOMOSYNTHESIS SCREENING BI, 09/08/2023. ??MG MAMM SCREEN 3D ?? GEE CAD, 09/02/2022. ??MG MAMM SCREEN GEE W CAD, 05/31/2019. ??MG MAMM GEE SCRN W ?? CAD DIG, 01/30/2015. ? INDICATIONS: ? Screening ? Calculator Name ? NCI Breast Cancer Risk Assessment Tool ?? 5 Year Breast Cancer Risk ? 0.50% ?? Lifetime Breast Cancer Risk ? 4.00% ?? Personal Breast Cancer ?No ?? Personal Ovarian Cancer ? No ?? Treatments ? None ?? Family Cancers ? None ? LOCATION: ? [facility] ? BREAST COMPOSITION: ? There are scattered areas of fibroglandular density. ? FINDINGS: ? DIAGNOSTIC CATEGORY 1--NEGATIVE. ? RIGHT BREAST: ??No significant suspicious finding. ??No significant change has ?? occurred. ? LEFT BREAST: ??No significant suspicious finding. ??No significant change has ?? occurred. ? RECOMMENDATIONS: ? ROUTINE MAMMOGRAM AND CLINICAL EVALUATION IN 12 MONTHS. ? PLEASE NOTE: ??A NORMAL MAMMOGRAM DOES NOT EXCLUDE THE POSSIBILITY OF BREAST ?? CANCER. ??A CLINICALLY SUSPICIOUS PALPABLE LUMP SHOULD BE BIOPSIED. ? Dictated by: Pascual Hammond M.D. on 11/04/2024 at 10:50 ? Approved by: Pascual Hammond M.D. on 11/04/2024 at 10:53 ? Dictated By: ?Pascual Hammond M.D. ? Signed By: ?11/04/24 1054 ? DD/ 1053 ? TD/TT: ? 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 Ordering Physician: Joaquín Neff D.O.Results: Date of Service: 11/02/24Follow Up: Procedure(s): MM tomosynthesis screening BI Accession Number(s): [id number] cc: Joaquín Neff D.O.; Adán Fink M.D. Patient Name: NATALI VERMA MR#: [id number] : 1970 Exam Date: 11/02/2024 Ordering Doctor: DR Joaquín Neff . RADIOLOGY REPORT PROCEDURE: MM TOMOSYNTHESIS SCREENING BI COMPARISON: MM TOMOSYNTHESIS SCREENING BI, 09/08/2023. MG MAMM ERFSQN2J GEE CAD, 09/02/2022. MG MAMM SCREEN GEE W CAD, 05/31/2019. MG MAMM BILSCRN W CAD DIG, 01/30/2015. INDICATIONS: Screening Calculator Name NCI Breast Cancer Risk Assessment Tool 5 Year Breast Cancer Risk 0.50% Lifetime Breast Cancer Risk 4.00% Personal Breast Cancer No Personal Ovarian Cancer No Treatments None Family Cancers None LOCATION: [facility] BREAST COMPOSITION: There are scattered areas [...] M.D. Signed By:11/04/24 1054 DD/ 1053 TD/TT: [employer] Train Repairer: Authorizing ProviderResult TypeResult StatusCorey Aishwarya DOCLINISYNC IMAGINGFinal Result * Pap Smear (11/02/2024 12:00 AM EST)Specimen (Source)Anatomical Location / LateralityCollection Method / VolumeCollection TimeReceived TimeSwabCervical swab / Unknown Narrative Authorizing ProviderResult TypeResult StatusAmy Vandana PALAB CYTOLOGY ORDERABLES Final ResultPerforming OrganizationAddressCity/State/ZIP CodePhone Number EXTERNAL LAB from Last 3 Months or Most Recently Relevant to Health Maintenance Insurance Care Teams Team MemberRelationshipSpecialtyStart DateEnd Adán Fink MD [address] [place] [phone] [facility]04/01/23
--- OUTSIDE RECORDS SUMMARY | 2025-09-20 11:45 | XMS_ITS | Patient Health Record ---
Author Organization [facility] in [place] Address [address] [place] [address] Care Team Providers Care Artificial Intelligence Specialist Name Role Phone Sukhdeep Avendaño Primary Care Provider [phone] Inessa Sanderson Unavailable [phone] Allergies No Known Allergies Results Component Value Reference Range Notes XR ribs RT 2V Reviewed date:08/28/2025 07:11:05 PM Interpretation: Performing Lab: Notes/Report: Source Facility: [place] [address] XRay Report Signed Patient: AMIE VERMA MR#: [id number] : 1970 Acct:[id number] Age/Sex: 54 / F ADM Date: 08/28/25 Loc: RAD Attending Dr: Ilan Avendaño M.D. Ordering Physician: Ilan Avendaño M.D. Date of Service: 08/28/25 Procedure(s): XR ribs RT 2V Accession Number(s): [id number] cc: Ilan Avendaño M.D. [place] [id number] Patient Name: AMIE VERMA MRN: [id number] date: 1970 Sex: F Assigned Patient Location: RAD Current Patient Location: RAD Accession/Order Number: [id number] Exam Date: 08/28/2025 14:10 Report Date: 08/28/2025 16:27 At the request of: ILAN AVENDAÑO MD Procedure: XR ribs RT 2V XR ribs RT 2V 08/28/2025 2:22 PM SIGNS AND SYMPTOMS: Chest Pain , fall, posterior right rib pain PROTOCOL: Frontal radiograph of the chest with oblique radiographs of the right ribs COMPARISON: None FINDINGS: The trachea is midline. The heart and mediastinal structures are within normal limits. The lung parenchyma is clear. The bony thorax is intact. No acute displaced rib fracture. XR/XR ribs RT 2V IMPRESSION: No acute cardiopulmonary pathology. No acute displaced rib fracture. Impression dictated by: Yusuf Madison M.D. 08/28/2025 4:27 PM Dictation Location: [place] [address] Electronically authenticated by: [id number] Y Date: 08/28/2025 16:27 Dictated By: Yusuf Madison M.D. Signed By: 08/28/25 1630 DD/ 162 TD/TT: Corporate Tutor: XR ankle RT min 3V Reviewed date:07/02/2025 08:36:23 PM Interpretation: Performing Lab: Notes/Report: Source Facility: [place] [address] XRay Report Signed Patient: AMIE VERMA MR#: [id number] : 1970 Acct:[id number] Age/Sex: 54 / F ADM Date: 07/01/25 Loc: ER Attending Dr: Ordering Physician: Jona Denny M.D. Date of Service: 07/01/25 Procedure(s): XR ankle RT min 3V Accession Number(s): [id number] cc: Ilan Avendaño M.D.; Jona Denny M.D. [place] [address] Patient Name: AMIE VERMA MRN: [id number] date: 1970 Sex: F Assigned Patient Location: ER Current Patient Location: ER Accession/Order Number: [id number] Exam Date: 07/01/2025 16:50 Report Date: 07/01/2025 17:48 At the request of: JONA DENNY MD Procedure: XR ankle RT min 3V Right ankle, 3 views CLINICAL HISTORY: fall COMPARISON: None FINDINGS: Negative acute fracture or dislocation. Minimal soft tissue swelling overlying the lateral malleolus and anterior ankle.. XR/XR ankle RT min 3V IMPRESSION: NO ACUTE OSSEOUS FINDINGS. Impression dictated by: Kingston Mccrary M.D. 07/01/2025 5:48 PM Dictation Location: [place] [address] Electronically authenticated by: [id number] Y Date: 07/01/2025 17:48 Dictated By: Kingston Mccrary M.D. Signed By: 07/01/251749 DD/ 47 TD/TT: Corporate Tutor: XR foot RT min 3V Reviewed date:07/02/2025 08:36:23 PM Interpretation: Performing Lab: Notes/Report: Source Facility: [place] [address] XRay Report Signed Patient: AMIE VERMA MR#: [id number] : 1970 Acct:[id number] Age/Sex: 54 / F ADM Date: 07/01/25 Loc: ER Attending Dr: Ordering Physician: Jona Denny M.D. Date of Service: 07/01/25 Procedure(s): XR foot RT min 3V Accession Number(s): [id number] cc: Ilan Avendaño M.D.; Jona Denny M.D. [place] [address] Patient Name: AMIE VERMA MRN: [id number] date: 1970 Sex: F Assigned Patient Location: ER Current Patient Location: ER Accession/Order Number: [id number] Exam Date: 07/01/2025 16:50 Report Date: 07/01/2025 17:49 At the request of: JONA DENNY MD Procedure: XR foot RT min 3V Right FOOT - 3 views CLINICAL HISTORY: fall COMPARISON: None FINDINGS: No definite acute displaced fracture or dislocation.. Lucency involving the anterior neck of talus noted, please correlate with point tenderness could represent tiny avulsion fracture fragment. XR/XR foot RT min 3V IMPRESSION: LUCENCY INVOLVING THE ANTERIOR NECK OF THE TALUS NOTED, PLEASE CORRELATE POINT TENDERNESS, QUESTION TINY NONDISPLACED OSSEOUS AVULSION FRACTURE. OTHERWISE, NEGATIVE FOR ACUTE DISPLACED FRACTURE. Impression dictated by: Kingston Mccrary M.D. 07/01/2025 5:49 PM Dictation Location: [place] [address] Electronically authenticated by: [id number] Y Date: 07/01/2025 17:49 Dictated By: Kingston Mccrary M.D. Signed By: 07/01/251751 DD/ 48 TD/TT: Corporate Tutor: XR foot LT min 3V Reviewed date:04/08/2025 03:36:17 PM Interpretation: Performing Lab: Notes/Report: Source Facility: [place] [address] XRay Report Signed Patient: AMIE VERMA MR#: [id number] : 1970 Acct:[id number] Age/Sex: 54 / F ADM Date: 04/07/25 Loc: [facility] Attending Dr: Ilan Avendaño M.D. Ordering Physician: Ilan Avendaño M.D. Date of Service: 04/07/25 Procedure(s): XR foot LT min 3V Accession Number(s): [id number] cc: Ilan Avendaño M.D. [place] [address] Patient Name: AMIE VERMA MRN: [id number] date: 1970 Sex: F Assigned Patient Location: [facility] Current Patient Location: [facility] Accession/Order Number: [id number] Exam Date: 04/07/2025 23:53 Report Date: 04/07/2025 23:54 At the request of: ILAN AVENDAÑO MD Procedure: XR foot LT min 3V XR foot LT min 3V 04/07/2025 2:47 PM SIGNS AND SYMPTOMS: Left Foot Pain PROTOCOL: Frontal, lateral, and oblique radiographs of the left foot COMPARISON: None FINDINGS: The joint spaces are preserved. There is no evidence of acute displaced fracture. No significant soft tissue swelling. No dislocation. XR/XR foot LT min 3V IMPRESSION: No fracture. Impression dictated by: Yusuf Madison M.D. 04/07/2025 11:54 PM Dictation Location: [place] [address] Electronically authenticated by: [id number] Y Date: 04/07/2025 23:54 Dictated By: Yusuf Madison M.D. Signed By: 04/07/257 DD/ 53 TD/TT: Corporate Tutor: YANICK tomosynthesis screening B I Reviewed date:11/05/2024 02:19:22 PM Interpretation: Performing Lab: Notes/Report: Source Facility: [place] [address] Mammography Report Signed Patient: AMIE VERMA MR#: [id number] : 1970 Acct:[id number] Age/Sex: 54 / F ADM Date: 11/02/24 Loc: MAMMO Attending Dr: Joaquín Neff D.O. Ordering Physician: Joaquín Neff D.O. Results: Date of Service: 11/02/24 Follow Up: Procedure(s): MM tomosynthesis screening BI Accession Number(s): [id number] cc: Joaquín Neff D.O.; Ilan Avendaño M.D. Patient Name: AMIE VERMA MR#: [id number] : 1970 Exam Date: 11/02/2024 Ordering Doctor: [...] Treatments None Family Cancers None LOCATION: [facility] BREAST COMPOSITION: There are scattered areas [...] Signed By: 11/04/24 1054 DD/ 1053 TD/TT: Corporate Tutor: Pb RIZO HPV,Age Gdln Reviewed date:11/08/2024 08:45:35 PM Interpretation: Performing Lab: Notes/Report: BRUSH-SPATULA CERVIX ENDOCERVIX [facility] , Age Gdln ACOG Testing Note . Clinician Provided Cytology Information Age Geoff ACOG Candelaria... 30-65 [address] [place] [address] TESTS RESULT FLAG UNITS REF RANGE LAB L-Low Normal,H-High Normal,LL-Alert Low,HH-Alert High Performed at: Bee Michelle MD, 01 =G [facility] <-Panic Low,>-Panic High,A-Abnormal,AA-Critical Abnormal Source.............Cervix;Endo cervix FLAG LEGEND: No. of containers..01 ThinPrep Vial IGP, Aptima HPV, rfx 16/18,45 Note . Performed by: 02 Bee Michelle MD, uterine cervix. It is not a diagnostic procedure and Performed at: Note: Note 02 Criteria not met, HPV Genotype not performed. Specimen adequacy: 02 L-Low Normal,H-High Normal,LL-Alert Low,HH-Alert High DIAGNOSIS: 02 02 WB [facility] Satisfactory for evaluation. Endocervical and/or squamous metaplastic <-Panic Low,>-Panic High,A-Abnormal,AA-Critical Abnormal the use of an image guided system. occur. FLAG LEGEND: HPV Genotype Reflex Note 02 Test Methodology: Note 02 TESTS RESULT FLAG UNITS REF RANGE LAB should not be used as the sole means of detecting cervical The Pap smear is a screening test designed to aid in the Jeannie Monroy Can Sterilizer (ASCP) This liquid based ThinPrep(R) pap test was screened with cancer. Both false-positive and false-negative reports do detection of premalignant and malignant conditions of the cells (endocervical component) are present. [address] [facility] [place] [address] NEGATIVE FOR INTRAEPITHELIAL LESION OR MALIGNANCY. . 02 HPV Aptima Negative Negative without differentiation. Allergy Physician: Bee Michelle MD, Phone: [phone] Allergy Physician: Bee Michelle MD, Phone: [phone] Performed at: [facility] Performed at: =[facility] This nucleic acid amplification test detects fourteen high- [address] [facility] [place] [place] [id number] [address] [place], [place] [id number] risk HPV types (16,18,31,33,35,39,45,51,52,56 ,58,59,66,68) Performing Lab: see note - [facility] LBXR chest 2V Reviewed date:08/28/2025 07:11:05 PM Interpretation: Performing Lab: Notes/Report: Source Facility: [place] [address] XRay Report Signed Patient: AMIE VERMA MR#: [id number] : 1970 Acct:[id number] Age/Sex: 54 / F ADM Date: 08/28/25 Loc: RAD Attending Dr: Ilan Avendaño M.D. Ordering Physician: Ilan Avendaño M.D. Date of Service: 08/28/25 Procedure(s): XR chest 2V Accession Number(s): [id number] cc: Ilan Avendaño M.D. [place] [address] Patient Name: AMIE VERMA MRN: [id number] date: 1970 Sex: F Assigned Patient Location: [facility] Current Patient Location: [facility] Accession/Order Number: [id number] Exam Date: 08/28/2025 14:10 Report Date: 08/28/2025 16:28 At the request of: ILAN AVENDAÑO MD Procedure: XR chest 2V XR chest 2V 08/28/2025 2:22 PM SIGNS AND SYMPTOMS: Chest Pain , fall, posterior right rib pain PROTOCOL: Frontal and lateral radiographs of the chest COMPARISON: Frontal and lateral radiographs of the chest FINDINGS: The trachea is midline. The heart and mediastinal structures are within normal limits. The lung parenchyma is clear. The bony thorax is intact. XR/XR chest 2V IMPRESSION: No acute cardiopulmonary pathology. Impression dictated by: Yusuf Madison M.D. 08/28/2025 4:28 PM Dictation Location: [place] [address] Electronically authenticated by: [id number] Y Date: 08/28/2025 16:28 Dictated By: Yusuf Madison M.D. Signed By: 08/28/25 1631 DD/ 1628 TD/TT: Corporate Tutor:XR tibia fibula LT 2V Reviewed date:07/02/2025 08:36:23 PM Interpretation: Performing Lab: Notes/Report: Source Facility: [place] [address] XRay Report Signed Patient: AMIE VERMA MR#: [id number] : 1970 Acct:[id number] Age/Sex: 54 / F ADM Date: 07/01/25 Loc: ER Attending Dr: Ordering Physician: Jona Denny M.D. Date of Service: 07/01/25 Procedure(s): XR tibia fibula LT 2V Accession Number(s): [id number] cc: Ilan Avendaño M.D.; Jona Denny M.D. [place] [address] Patient Name: AMIE VERMA MRN: [id number] date: 1970 Sex: F Assigned Patient Location: ED.MAIN Current Patient Location: ED.MAIN Accession/Order Number: [id number] Exam Date: 07/01/2025 14:45 Report Date: 07/01/2025 15:39 At the request of: JONA DENNY MD Procedure: XR tibia fibula LT 2V LEFT TIBIA AND FIBULA - - 2 views CLINICAL HISTORY: fall COMPARISON: None FINDINGS: Trimalleolar ankle fracture involving the distal tibia and fibula. Remainder of the tibia and fibula otherwise intact. The knee appears grossly intact. IMPRESSION: Trimalleolar ankle fracture. No Additional tibia-fibula fractures identified. Impression dictated by: Kingston Mccrary M.D. 07/01/2025 3:39 PM Dictation Location: [place] [address] Electronically authenticated by: [id number] Date: 07/01/2025 15:39 Dictated By: Kingston Mccrary M.D. Signed By: 07/01/25 1542 DD/ 1539 TD/TT: Corporate Tutor:XR ankle LT min 3V Reviewed date:07/02/2025 08:36:23 PM Interpretation: Performing Lab: Notes/Report: Source Facility: [place] [address] XRay Report Signed Patient: AMIE VERMA MR#: [id number] : 1970 Acct:[id number] Age/Sex: 54 / F ADM Date: 07/01/25 Loc: ER Attending Dr: Ordering Physician: Jona Denny M.D. Date of Service: 07/01/25 Procedure(s): XR ankle LT min 3V Accession Number(s): [id number] cc: Ilan Avendaño M.D.; Jona Denny M.D. [place] [address] Patient Name: AMIE VERMA MRN: [id number] date: 1970 Sex: F Assigned Patient Location: ED.MAIN Current Patient Location: ED.MAIN Accession/Order Number: [id number] Exam Date: 07/01/2025 14:45 Report Date: 07/01/2025 15:36 At the request of: JONA DENNY MD Procedure: XR ankle LT min 3V 3 views left ankle CLINICAL HISTORY: fall COMPARISON: None FINDINGS: Trimalleolar ankle fracture. Slight widening of the medial interval 6 mm. Talar dome appears grossly unremarkable. XR/XR ankle LT min 3V IMPRESSION: TRIMALLEOLAR ANKLE FRACTURE. WIDENING OF THE MEDIAL INTERVAL 6 MM WORRISOME FOR INSTABILITY. Impression dictated by: Kingston Mccrary M.D. 07/01/2025 3:36 PM Dictation Location: [place] [address] Electronically authenticated by: [id number] Y Date: 07/01/2025 15:36 Dictated By: Kingston Mccrary M.D. Signed By: 07/01/25 1539 DD/ 1536 TD/TT: Corporate Tutor:XR foot LT min 3V Reviewed date:07/02/2025 08:36:23 PM Interpretation: Performing Lab: Notes/Report: Source Facility: [place] [address] XRay Report Signed Patient: AMIE VERMA MR#: [id number] : 1970 Acct:[id number] Age/Sex: 54 / F ADM Date: 07/01/25 Loc: ER Attending Dr: Ordering Physician: Jona Denny M.D. Date of Service: 07/01/25 Procedure(s): XR foot LT min 3V Accession Number(s): [id number] cc: Ilan Avendaño M.D.; Jona Denny M.D. [place] [address] Patient Name: AMIE VERMA MRN: [id number] date: 1970 Sex: F Assigned Patient Location: ED.MAIN Current Patient Location: ED.MAIN Accession/Order Number: [id number] Exam Date: 07/01/2025 14:45 Report Date: 07/01/2025 15:38 At the request of: JONA DENNY MD Procedure: XR foot LT min 3V LEFT FOOT - 3 views CLINICAL HISTORY: fall COMPARISON: 04/07/2025 FINDINGS: Trimalleolar ankle fracture. Forefoot soft tissue swelling. Questionable nondisplaced lucency involving the cuboid. XR/XR foot LT min 3V IMPRESSION: Questionable fracture lucency involving the cuboid, nondisplaced. Please correlate with point tenderness. Redemonstration of the ankle fracture. Impression dictated by: Kingston Mccrary M.D. 07/01/2025 3:38 PM Dictation Location: [place] [address] Electronically authenticated by: [id number] Y Date: 07/01/2025 15:38 Dictated By: Kingston Mccrary M.D. Signed By: 07/01/25 1541 DD/ 1538 TD/TT: Corporate Tutor: Reason For Referral Diagnosis 1 Foot pain (M79.673) Referral Organization [facility] Referring Provider First Name Sukhdeep Referring Provider Last Name Danae Referring Provider Speciality [facility] Referred Provider Pascual Do Referred Provider Specialty Podiatry Referral Priority Routine Medications Medication SIG (Take, Route, Frequency, Duration) Notes Start Date End Date Status ZyrTEC Allergy 10 MG 1 tablet Orally Once a day; Durat ion: 30 days PRN 02/10/2023 ActiveLysineActiveDexilant 60 MG1 capsule Orally Once a day; Duration: 30 days 04/03/2023ctiveAspirin Adult Low Dose 81 MG1 tablet Orally Once a dayActive Vitamin B ComplexActive Immunizations Vaccine Route Administration Date Status Comme nts Hep B, Adult, 3 Dose Unknown 07/23/2001 Administered Hep B, Adult, 3 DqmyFypdxco06/07/2001AdministeredHep B, Adult, 3 DoseUnknown 01/28/20021951BravshrwullnXyanZyxupco18/17/2020Administered Social History Tobacco Use: Social History Observation Description Date Details (start date - stop date) Former Smoker 09/21/1991 - 09/21/2010 Tobacco Use/Smoking Question Answer Notes Patient is a former smoker When did you start smoking?09/21/1991When did you stop smoking?09/21/2010How long has it been since you last smoked?> 10 yearsAdditional Findings: Tobacco Lzx-BxscWv-futye cigarette smoker (20-30/day)Alcohol Screen (Audit-C) Question Answer Notes Did you have a drink containing alcohol in the p ast year? No Qvgtic2OkpcjimgsxluynRhrurefaZVMMY-F (Standard) Question Answer Notes Did you have a drink containing alcohol in the p ast year? No Kpfvwn5MepcebmnzmnywkEhyuxfyk Problems Problem Type SNOMED Code ICD Code Onset Dates Problem Status W/U Status Risk Notes Problem Migraine without aur a, not refractory (disorder) (751620792) Migraine, unspecified, not intractable, without status migrainosus (G43.909) ActiveconfirmedProblemChest pain (52193529)Chest pain (R07.9)Activeconfirmed ProblemHyperlipidemia (08218964)Hyperlipidemia (E78.5)ActiveconfirmedProblem Hypertension (63646833)Hypertension (I10)ActiveconfirmedProblemGastroesophageal reflux disease (356043723)GERD (gastroesophageal reflux disease) (K21.9)Active confirmedProblemAcute sinusitis (43459787)Acute sinusitis (J01.90)Active confirmedProblemLeg pain (81592069)Leg pain (M79.606)ActiveconfirmedProblem Otitis externa (6252198)Otitis externa (H60.90)ActiveconfirmedProblemBimalleolar fracture of left ankle (28466397603515)Bimalleolar fracture of left ankle (S82.842A)ActiveconfirmedProblemObese class I (finding) (391369077573862)Class 1 obesity (E66.9)Activeconfirmed Vital Signs Blood pressure diastolic 76 mm Hg 09/20/2025 Xgowfs30.75 in09/20/2025lood pressure mm Hg09/20/20255482Pexcqy796.8 lbs1MI35.77 kg/m209/20/2025 Encounters Encounter Location Date Provider Diagnosis [facility] [address] [place] [address] 06/30/2025 Sukhdeep Avendaño [facility] [place] [address] 07/02/2025[facility] [place] [address]/[facility] [place] [address]/[facility] [address] [place] [facility] [address]/12/2024Doug [facility] [place] [address]/04/2025Doug Hoy [facility] [place] [address] 03/03/2025Doug [facility] [place] [place] [address]/Doug HoyFoot pain M79.673[facility] [address] [place] [place] [address]/Doug [facility] [place] [place] [address]/08/2025Pamela CramerHypertension I10 and Class 1 obesity E66.9[facility] [address] [place] [place] [address]/08/2025[facility] [place] [place] [address]/Doug HoyLeg pain M79.606[facility] [place] [place] [address]/Doug HoyAcute otitis media, unspecified otitis media type H66.90 and Otalgia, unspecified laterality H92.09[facility] [address] [place] [address]/Doug HoyFoot pain, left M79.672[facility] [place] [place] [address]/04/2025Doug HoyChest pain R07.9[facility] [place] [address]/02/2025Doug HoyHypertension M13UjuthsrCedar [facility]al Hospital[address] [place] [place] [address]/05/2025 Sukhdeep HoyHypertension Q64YybmjevChildren'[facility] [place] [address]/05/2025Doug HoyAcute otitis media, unspecified otitis media type H66.90 ; Otalgia, unspecified laterality H92.09 ;Otitis externa H60.90 and Well adult Z00.00[facility] [place] [address]/04/2025Doug HoyAnkle fracture S82.899A Assessments Encounter Date Diagnosis (ICD Code) Assessment Notes Treatment Notes Treatment Clinical Notes Section Notes 10/27/2024 Hypertension (ICD-10 - I10) checking BP next week - repat11/30/2024Hypertension (ICD-10 - I10) continue to monitor BP fu one month 11/30/2024lass 1 obesity (ICD-10 - E66.9) fu one month work on diet, exercise 12/28/2024Hypertension (ICD-10 - I10) good contrl at [facility] - just not here needs to lose 6 pounds by nexg month 5Acute otitis media, unspecified otitis media type (ICD-10 - H66.90)You have been prescribed antibiotics for otitis media. Antibiotics may bother your stomach, so try taking them with a light meal (unless instructed otherwise by your pharmacist). It is important to take them until they are finished. You can use bqio-gtn-jusaung acetaminophen or ibuprofen if needed for pain. You have been prescribed antibiotics. You should be extra vigilant about hand washing or using hand salon professional gel. You should follow up with your Primary Care Physician or return to clinic if not improving in the next 3-5 days.04/07/2025Foot pain, left (ICD-10 - M79.672)06/28/2025nkle fracture (ICD-10 - S82.899A)08/28/2025 Chest pain (ICD-10 - R07.9)09/20/2025Leg pain (ICD-10 - M79.606)04/08/2025Foot pain (ICD-10 - M79.673)5Acute otitis media, unspecified otitis media type (ICD-10 - H66.90)You have been prescribed antibiotics for otitis media. Antibiotics may bother your stomach, so try taking them with a light meal (unless instructed otherwise by your pharmacist). It is important to take them until they are finished. You can use xhsb-rar-rpruigt acetaminophen or ibuprofen if needed for pain. You have been prescribed antibiotics. You should be extra vigilant about hand washing or using hand salon professional gel. You should follow up with your Primary Care Physician or return to clinic if not improving in the next 3-5 days.02/07/2025Otalgia, unspecified laterality (ICD-10 - H92.09) 01/27/2025Otalgia, unspecified laterality (ICD-10 - H92.09)01/27/2025Otitis externa (ICD-10 - H60.90)01/27/2025Well adult (ICD-10 - Z00.00)08/28/2025Other Discussed increasing physical exercise and continuing/implementing a healthier diet. Plan Of Treatment Pending Test Test Name Order Date Exercise Stress Nuclear Test 09/28/2023 CMP (COMPLETE METABOLIC PANEL) 4 HEMOGLOBIN A1C (GLYCO) 01/27/2024 HEMOGLOBIN A1C (GLYCO) 01/27/2025 IRON, TOTAL 01/27/2025 LIPID PANEL (CHOL/TRIG/HDL/LDL) 01/27/20 24 LIPID PANEL (CHOL/TRIG/HDL/LDL) 01/28/20 25 CBC WITH DIFF (EXP 07/2025) 01/27/2024 Insulin Level 01/27/2024 Insulin Level 01/27/2025 STOOL OCCULT BLOOD 01/27/2025 STOOL OCCULT BLOOD 01/27/2024 XR Elbow 3 Views Left 10/22/2023 US SARATH DOP LEG LT 09/20/2025 XR CHEST 2 V 08/28/2025 XR FOOT LT MIN 3 VIEWS 04/07/2025 Plain Treadmill Stress 10/09/2023 THYROID PANEL (T4/TSH/FREE T3) 5 THYROID PANEL (T4/TSH/FREE T3) 4 Lipid Panel 01/27/2024 CMP (COMP MET GARCIA) w/eGFR CKD-EPI 2024 CBC WITH DIFF 01/27/2025 Insurance Providers Payer Name Payer Address Payer Phone Subscriber Number Group Number Insured Name Patient Relationship to Insured Coverage Start Date Coverage End Date [employer] [place] [employer] [address] [place] [phone] [id number] Ashok Verma - patient is the [email or web address] 2022 Medical (General) History Medical History History ICD Code De Quervain's tenosynovitis M65.4 GERD (gastroesophageal reflux disease) K 21.9 Hot flashes N95.1 Hypertensive retinopathy H35.039 Insomnia G47.00 Migraine G43.909 Seasonal allergic rhinitis J30.2 Anxiety F41.9 Surgical History Surgery Date(Month/Year) ORIF left ankle fx 07/05/2025 DELIVERY
== END 2025-09-20 11:41 | disposition home or self-care (01) ==
LOC: US 11:41
PROVIDERS: PCP Family Medicine; Visit Provider Family Medicine
DX: M79.605 Pain in left leg (principal)
CPT/HCPCS: 93971